=== PATIENT | female | born 1955 | race African-American/Black ===

== ENCOUNTER 2018-09-05 18:42 | Emergency (ER) | payer OTHER ==
[2018-09-05 19:10] VITALS: BP 156/70; PULSE 47; TEMP 98.7; BMI 29.9
--- NOTE | 2018-09-05 20:22 | PDOC ---
History of Present Illness - History of Present Illness Initial Comments: 09/05/18 20:21 63 year old woman with past medical history of HTN and DM who presents with a sharp intermittent pain on the R shoulder radiating to the chest. She describes the pain as like "an ice-pick" and is associated with burning and tingling in the R shoulder. The patient also reports a history of headache that starts at the back of the head that radiates to the bilateral temples and is associated runny nose and tearing. The headache will come and go and symptoms of runny nose and tearing will resolve once the headache remits. The patient states that she has had these headaches in the past and has several headaches like this earlier in the day but is now resolved. The patient denies any recent travel, shortness of breath, chest pain, fevers, nausea, vomiting, diarrhea, constipation or any other complaints at bedside. She denies changes in vision, ringing in the ears, numbness or tingling in the hands or feet. <Magda Hernández - Last Filed: 09/05/18 21:54> <Giovanny Dobbins - Last Filed: 09/06/18 00:07> - General Chief Complaint: Pain Stated Complaint: PAIN Time Seen by Provider: 09/05/18 19:03 Past History - Past Medical History COPD: No Diabetes: Yes HTN: Yes - Surgical History Cardiac Surgery: Yes (stent x 2 2007) - Suicide/Smoking/Psychosocial Hx Smoking History: Former smoker Have you smoked in the past 12 months: No If you are a former smoker, when did you quit?: 15YRS AGO Information on smoking cessation initiated: No Hx Alcohol Use: No Drug/Substance Use Hx: No Substance Use Type: None <Magda Hernández - Last Filed: 09/05/18 21:54> <Giovanny Dobbins - Last Filed: 09/06/18 00:07> - Past Medical History Allergies/Adverse Reactions: Allergies Allergy/AdvReac Type Severity Reaction Status Date / Time No Known Drug Allergies Allergy Verified 09/05/18 18:56 Home Medications: Ambulatory Orders Aspirin [Aspirin EC] 325 mg PO DAILY 09/18/15 Atenolol [Tenormin] 50 mg PO BID 09/18/15 Gabapentin [Neurontin -] 300 mg PO Q8H 10/22/15 Glyburide 5 mg PO BID 09/18/15 Lisinopril [Prinivil -] 40 mg PO DAILY 09/18/15 Metformin HCl [Glucophage] 1,000 mg PO BID 09/18/15 Simvastatin 10 mg PO DAILY 09/18/15 Cephalexin Monohydrate [Keflex -] 500 mg PO Q6H #7 capsule 09/05/18 *Physical Exam - Vital Signs Last Vital Signs Temp Pulse Resp BP Pulse Ox 98.7 F 47 L 18 156/70 96 09/05/18 18:56 09/05/18 18:56 09/05/18 18:56 09/05/18 18:56 09/05/18 18:56 - Physical Exam Comments: 09/05/18 20:38 + R CVA tenderness point tenderness to medial border of R scapula on palpation no spinal tenderness to palpation <Magda Hernández - Last Filed: 09/05/18 21:54> - Vital Signs Last Vital Signs Temp Pulse Resp BP Pulse Ox 98.7 F 47 L 18 156/70 96 09/05/18 18:56 09/05/18 18:56 09/05/18 18:56 09/05/18 18:56 09/05/18 18:56 <Giovanny Dbobins - Last Filed: 09/06/18 00:07> ED Treatment Course - LABORATORY CBC & Chemistry Diagram: 09/05/18 21:06 09/05/18 21:06 <Magda Hernández - Last Filed: 09/05/18 21:54> - LABORATORY CBC & Chemistry Diagram: 09/05/18 21:06 09/05/18 21:06 - ADDITIONAL ORDERS Additional order review: Laboratory Results 09/05/18 09/05/18 09/05/18 21:06 21:06 21:06 Sodium 143 Potassium 3.9 Chloride 108 H Carbon Dioxide 28 Anion Gap 6 L BUN 25 H Creatinine 1.0 Creat Clearance w eGFR 55.64 Random Glucose 87 Calcium 10.2 H Total Bilirubin 0.4 AST 16 ALT 24 Alkaline Phosphatase 84 Troponin I < 0.02 Total Protein 7.4 Albumin 3.9 Urine Color Colorless Urine Appearance Clear Urine pH 6.0 Ur Specific Elizabeth 1.003 L Urine Protein Negative Urine Glucose (UA) Negative Urine Ketones Negative Urine Blood 1+ H Urine Nitrite Negative Urine Bilirubin Negative Urine Urobilinogen Negative Ur Leukocyte Esterase 2+ H Urine WBC (Auto) 21 Urine RBC (Auto) None Ur Epithelial Cells Rare Urine Bacteria Rare 09/05/18 21:06 RBC 4.84 MCV 81.7 MCHC 32.0 RDW 14.7 MPV 9.2 Neutrophils % 38.6 L Lymphocytes % 50.1 H Monocytes % 7.1 Eosinophils % 3.3 Basophils % 0.9 - RADIOLOGY Radiology Studies Ordered: Category Date Time Status CHEST PA & LAT [RAD] Stat Radiology 09/05/18 20:27 Taken - Medications Given in the ED: ED Medications Discontinued Medications Generic Name Dose Route Start Last Admin Trade Name Devonte PRN Reason Stop Dose Admin Acetaminophen 1,000 mg 09/05/18 20:28 09/05/18 21:13 Ofirmev Injection - IVPB 09/05/18 20:29 1,000 mg ONCE ONE Administration Cephalexin HCl 500 mg 09/05/18 21:41 09/05/18 22:00 Keflex - PO 09/05/18 21:42 500 mg ONCE ONE Administration <Giovanny Dobbins - Last Filed: 09/06/18 00:07> Medical Decision Making - Medical Decision Making 09/05/18 21:05 63 year old woman with past medical history of HTN and DM who presents with a sharp intermittent pain on the R shoulder radiating to the chest. She describes the pain as like "an ice-pick" and is associated with burning and tingling in the R shoulder. The patient also reports a history of headache that starts at the back of the head that radiates to the bilateral temples and is associated runny nose and tearing. The headache will come and go and symptoms of runny nose and tearing will resolve once the headache remits. The patient states that she has had these headaches in the past and has several headaches like this earlier in the day but is now resolved. DDX including but not limited to: musculoskeletal vs referred cholesysitic pain vs pleuritic pain vs radiculopathy W/U: - cbc, cmp - cxr - ua, ucx TX: - tylenol ED Course: Patient stable in no acute distress, resting comfortably. 09/05/18 21:54 UA: 21 wbc, 2+ leuk esterase Keflex 500 given 09/05/18 21:55 Patient signed out to Dr. Frazier. <Magda Hernández - Last Filed: 09/05/18 21:54> *DC/Admit/Observation/Transfer - Discharge Dispostion Decision to Admit order: No <Magda Hernández - Last Filed: 09/05/18 21:54> <Giovanny Dobbins - Last Filed: 09/06/18 00:07> Diagnosis at time of Disposition: Shoulder pain - Discharge Dispostion Disposition: HOME Condition at time of disposition: Stable - Prescriptions Prescriptions: Cephalexin Monohydrate [Keflex -] 500 mg PO Q6H #7 capsule - Referrals Referrals: Milady Guevara [Primary Care Provider] - Albert Lagos MD [Staff Physician] - - Patient Instructions Additional Instructions: You were seen in the ED for complaints of R shoulder/upper back pain. In the ED you were evaluated with labwork and imaging. Your results showed a urinary tract infection but no other significant findings. There does not appear to be an immediate need for hospitalization. You are advised to follow up with your primary care physician within 1 week. You were given a referral to orthopedics. Call the number provided to make an appointment within 1 week for further evaluation of your neck and shoulder pain. You were given a prescription for antibiotics to treat your urinary tract infection. Please take medications as directed. Return to the ED immediately if you experience worsening neck and shoulder pain , nausea, vomiting, loss of consciousness, fever, chest pain, shortness of breath or numbness or tingling down the arm. - Post Discharge Activity
[2018-09-05] MEDS ORDERED: ACETAMINOPHEN 1000 MG/100 ML VIAL (NON FORMULARY) IVPB ONE (20:28)
[2018-09-05] MEDS ORDERED: SODIUM CHLORIDE 1,000 ML IV SCH (20:30)
[2018-09-05] MEDS ORDERED: ACETAMINOPHEN INJECTION 100 ML IVPB ONE (20:54)
--- NOTE | 2018-09-05 21:09 | PDOC ---
Attending Attestation - Resident Resident Name: Magda Hernández - ED Attending Attestation I have performed the following: I have examined & evaluated the patient, The case was reviewed & discussed with the resident, I agree w/resident's findings & plan, Exceptions are as noted - HPI HPI: 09/05/18 21:03 The patient is a 63 year old female, with a past medical history of DM and HTN, who presents to the emergency department via EMS with neck and shoulder pain. Pt states that she has had neck pain for approx 1 month. Denies any trauma or falls. Pt states that she presents today because she developed pain in her R upper back. It is worse with palpation, not pleuritic, not exertional. Pt also endorses pain in her R shoulder. Denies CP/SOB. Denies abdominal pain. She denies any recent palpitations or chest pain. She denies recent fevers, chills, lightheadedness or dizziness. She denies recent nausea, vomit, diarrhea or constipation. She denies recent dysuria, frequency, urgency or hematuria. Allergies: NKA Past surgical history: None reported. Social history: Former smoker. Denies EtOH use and recreational drug use. Primary Care Physician: Dr. Guevara - Physicial Exam PE: 09/05/18 21:09 GENERAL: Awake, alert, and fully oriented, in no acute distress. HEAD: No signs of trauma EYES: PERRLA, EOMI, sclera anicteric, conjunctiva clear ENT: Auricles normal inspection, hearing grossly normal, nares patent, oropharynx clear without exudates. Moist mucosa NECK: + Mild R paraspinal TTP, no stepoffs, Normal ROM, supple, no lymphadenopathy, JVD, or masses LUNGS: Breath sounds equal, clear to auscultation bilaterally. No wheezes, and no crackles HEART: Regular rate and rhythm, normal S1 and S2, no murmurs, rubs or gallops ABDOMEN: Soft, nontender, normoactive bowel sounds. No guarding, no rebound. No masses EXTREMITIES: Normal range of motion, no edema. No clubbing or cyanosis. No cords, erythema, or tenderness NEUROLOGICAL: Cranial nerves II through XII intact. 5/5 strength and sensation in all extremities, Normal speech, normal gait, normal cerebellar function SKIN: Warm, Dry, normal turgor, no rashes or lesions noted. BACK: + Mild TTP over R scapula, no deformity - Medical Decision Making 09/05/18 21:11 63 F with R upper back and neck pain. Suspect cervical radiculopathy. Pt with no neuro deficits to suggest spinal cord injury. Pt with no pleuritic nature of pain to suggest lung pathology. Pain is reproducible with palpation, making msk pain more likely. Could also be referred pain, but pt with nontender abdomen. - Labs, trop - EKG - CXR - Pain control 09/06/18 00:06 Labs wnl CXR clear on my read UA notable for UTI. Pt is well appearing, with normal vitals. Clinically stable for DC at this time. I discussed the physical exam findings, ancillary test results and final diagnoses with the patient. I answered all of the patient's questions. The patient was satisfied with the care received and felt comfortable with the discharge plan and treatment plan. The patient agrees to follow up with the primary care physician within 24-72 hours.
[2018-09-05 21:14] LABS: BASO % 0.9 % (0-2.0); EOS % 3.3 % (0-4.5); HEMATOCRIT 39.5 % (32.4-45.2); HEMOGLOBIN 12.7 GM/dL (10.7-15.3); LYMPH % 50.1 % (8-40); MCH 26.1 pg (25.7-33.7); MEAN CELL VOLUME 81.7 fl (80-96); MEAN PLT VOLUME 9.2 fl (7.5-11.1); MONO % 7.1 % (3.8-10.2); NEUT % 38.6 % (42.8-82.8); PLATELET COUNT 185 K/MM3 (134-434); RBC 4.84 M/mm3 (3.60-5.2); RDW 14.7 % (11.6-15.6); WHITE BLOOD COUNT 5.5 K/mm3 (4.0-10.0)
[2018-09-05 21:17] LABS: URINE APPEARANCE CLEAR; URINE BILIRUBIN NEGATIVE (<2.0 mg/dL); URINE COLOR COLORLESS; URINE GLUCOSE (UA) NEGATIVE (NEGATIVE); URINE KETONE NEGATIVE (NEGATIVE); URINE LEUK ESTERASE 2+ (NEGATIVE); URINE NITRITE NEGATIVE (NEGATIVE); URINE PROTEIN NEGATIVE (NEGATIVE); URINE UROBILINOGEN NEGATIVE mg/dL (0.2-1.0)
[2018-09-05 21:28] LABS: EPI CELLS RARE /HPF (FEW); URINE BACTERIA RARE /hpf (NONE SEEN)
[2018-09-05 21:39] LABS: ALBUMIN 3.9 g/dl (3.4-5.0); ALK PHOS 84 U/L (45-117); ANION GAP 6 MMOL/L (8-16); BILIRUBIN,TOTAL 0.4 mg/dL (0.2-1); BLOOD UREA NITROGEN 25 mg/dL (7-18); CALCIUM 10.2 mg/dL (8.5-10.1); CHLORIDE 108 mmol/L (98-107); CO2 28 mmol/L (21-32); GLUCOSE,RANDOM 87 mg/dL (74-106); POTASSIUM 3.9 mmol/L (3.5-5.1); SGOT/AST 16 U/L (15-37); SGPT/ALT 24 U/L (13-61); SODIUM 143 mmol/L (136-145); TOT PROT 7.4 g/dl (6.4-8.2)
[2018-09-05] MEDS ORDERED: CEPHALEXIN MONOHYDRATE 500 MG CAPSULE (UD) PO ONE (21:41)
[2018-09-05] MEDS ORDERED: CEPHALEXIN MONOHYDRATE 500 MG CAPSULE (UD) ONE (21:56)
--- NOTE | 2018-09-06 09:54 | EKG ---
Test Reason : Blood Pressure : / mmHG Vent. Rate : 043 BPM Atrial Rate : 043 BPM P-R Int : 180 ms QRS Dur : 088 ms QT Int : 462 ms P-R-T Axes : 049 035 063 degrees QTc Int : 390 ms MARKED SINUS BRADYCARDIA ABNORMAL ECG WHEN COMPARED WITH ECG OF 23-AUG-2010 12:04, NO SIGNIFICANT CHANGE WAS FOUND Confirmed by PAULO SHAFFER MD ([id number]) on 09/06/2018 9:54:35 AM Referred By: Confirmed By:PAULO SHAFFER MD
== END 2018-09-06 01:03 | disposition home or self-care (01) ==
LOC: JER 18:42
PROC: 3E033NZ Introduction of Analgesics, Hypnotics, Sedatives into Peripheral Vein, Percutaneous Approach (ICD-10-PCS; principal; 2018-09-05)
DX: M25.511 Pain in right shoulder (principal); I25.10 Atherosclerotic heart disease of native coronary artery without angina pectoris; I10 Essential (primary) hypertension; Z95.5 Presence of coronary angioplasty implant and graft; E11.9 Type 2 diabetes mellitus without complications; Z79.84 Long term (current) use of oral hypoglycemic drugs; Z87.891 Personal history of nicotine dependence
CPT/HCPCS: 36415; 71046-TC-FY; 80053; 81003; 81015; 84484; 85025; 93005; 93010; 96374; 99282-25; J0131; J7030

== ENCOUNTER 2019-12-27 11:58 | Emergency (ER) | payer OTHER ==
[2019-12-27 12:12] VITALS: BP 100/61; PULSE 58; TEMP 97.9; BMI 23.3
[2019-12-27] MEDS ORDERED: LIDOCAINE 5% TOPICAL PATCH TP ONE (12:26)
[2019-12-27] MEDS ORDERED: KETOROLAC TROMETHAMINE 15 MG/ML VIAL IM ONE (12:26)
[2019-12-27] MEDS ORDERED: METHOCARBAMOL 750 MG TABLET PO ONE (12:30)
[2019-12-27] MEDS ORDERED: LIDOCAINE 5% TOPICAL PATCH ONE (12:34)
--- NOTE | 2019-12-27 12:34 | PDOC ---
History of Present Illness - General Chief Complaint: Pain Stated Complaint: SEVER LF HIP PAIN Time Seen by Provider: 12/27/19 12:14 History Source: Patient Exam Limitations: No Limitations Past History - Past Medical History Allergies/Adverse Reactions: Allergies Allergy/AdvReac Type Severity Reaction Status Date / Time No Known Drug Allergies Allergy Verified 09/05/18 18:56 Home Medications: Ambulatory Orders Aspirin [Aspirin EC] 325 mg PO DAILY 09/18/15 Atenolol [Tenormin] 25 mg PO BID 09/18/15 Lisinopril [Prinivil -] 20 mg PO DAILY 09/18/15 Metformin HCl [Glucophage] 1,000 mg PO BID 09/18/15 Amlodipine Besylate [Norvasc -] 10 mg PO DAILY 12/27/19 Atorvastatin Calcium [Lipitor] 20 mg PO HS 12/27/19 Diclofenac Sodium [Voltaren] 4 gm TP Q6H #2 gel..gram. 12/27/19 Ergocalciferol (Vitamin D2) [Vitamin D2] 1,000 unit PO DAILY 12/27/19 Hydrochlorothiazide [Hctz -] 25 mg PO DAILY 12/27/19 Methocarbamol [Robaxin -] 1,500 mg PO QID #24 tablet 12/27/19 Oxycodone HCl/Acetaminophen [Percocet 5-325 mg Tablet] 1 tab PO Q6H PRN #12 tab MDD 4 12/27/19 Vitamin B12 100 mg PO DAILY 12/27/19 COPD: No Diabetes: Yes HTN: Yes - Surgical History Cardiac Surgery: Yes (stent x 2 2007) - Psycho Social/Smoking Cessation Hx Smoking History: Never smoked Have you smoked in the past 12 months: No If you are a former smoker, when did you quit?: 15YRS AGO Hx Alcohol Use: No Drug/Substance Use Hx: No Substance Use Type: None *Physical Exam - Vital Signs Last Vital Signs Temp Pulse Resp BP Pulse Ox 97.9 F 58 L 20 100/61 99 12/27/19 12:11 12/27/19 12:11 12/27/19 12:11 12/27/19 12:11 12/27/19 12:11 - Physical Exam General Appearance: Yes: Mild Distress (due to pain). No: Apparent Distress Respiratory/Chest: positive: Lungs Clear, Normal Breath Sounds. negative: Respiratory Distress Cardiovascular: positive: Regular Rhythm, Regular Rate, S1, S2. negative: Murmur Gastrointestinal/Abdominal: positive: Soft. negative: Tender Musculoskeletal: negative: Vertebral Tenderness Extremity: positive: Other (able to move LLE, has more pain when in seated position) Neurologic: positive: Alert, Normal Mood/Affect Medical Decision Making - Medical Decision Making 64 y/o F hx of HTN, DM, herniated disc, sciatica, restless leg syndrome presents with L buttock pain radiating down leg x 4 days, worse today. Last MRI of spine was several years ago. 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 Denies fever, sob, cp, abd pain, n/v, back pain, urinary sxs, numbness/tingling of extremities, bowel/bladder incontinence, saddle/groin paresthesia. Likely sciatica Plan: IM toradol, lido patch, robaxin 12/27/19 12:30 Was still in pain so given Percocet Advised f/u with PCP 12/27/19 13:37 Discharge - Discharge Information Problems reviewed: Yes Clinical Impression/Diagnosis: Sciatica Qualifiers: Laterality: left Qualified Code(s): M54.32 - Sciatica, left side Condition: Stable Disposition: HOME - Admission No - Additional Discharge Information Prescriptions: Diclofenac Sodium [Voltaren] 4 gm TP Q6H #2 gel..gram. Methocarbamol [Robaxin -] 1,500 mg PO QID #24 tablet Oxycodone HCl/Acetaminophen [Percocet 5-325 mg Tablet] 1 tab PO Q6H PRN #12 tab MDD 4 PRN Reason: Severe Pain Prescription Drug Monitoring Program (I-STOP) results: I-STOP not reviewed - Follow up/Referral Referrals: Ema Hein MD [Primary Care Provider] - - Patient Discharge Instructions Patient Printed Discharge Instructions: DI for Sciatica Additional Instructions: Thank you for choosing [facility]. It was a pleasure taking care of you. Alternate between Tylenol 650 mg every 4 and Motrin 600 mg every 6 hours as needed for pain. Be cautious with Motrin as it can affect kidney function. Use Robaxin as well. This medication can make you drowsy. For severe pain, you may take Percocet. This medication can make you constipated for which you may take over the counter Senna tablets as needed. This medication can also make you drowsy so please be cautious with driving or performing heavy physical work. Please be aware that Percocet contains Tylenol. Do not take more than 4000 mg of Tylenol in 1 day. Use Voltaren gel as directed Heating pads may also help Follow-up with your doctor in 2 days Return to the Emergency Department if your symptoms worsen or persist or have chest pain, abdominal pain, vomiting, weakness of extremities, unable to walk, unable to control bowel or bladder movements other concerning symptoms. - Post Discharge Activity
[2019-12-27] MEDS ORDERED: METHOCARBAMOL 500 MG TABLET ONE (12:35)
[2019-12-27] MEDS ORDERED: KETOROLAC TROMETHAMINE 15 MG/ML VIAL ONE (12:35)
== END 2019-12-27 13:50 | disposition home or self-care (01) ==
LOC: JERFT 11:58
PROC: 3E0233Z Introduction of Anti-inflammatory into Muscle, Percutaneous Approach (ICD-10-PCS; principal; 2019-12-27)
DX: I25.10 Atherosclerotic heart disease of native coronary artery without angina pectoris (principal); I10 Essential (primary) hypertension; M54.32 Sciatica, left side; Z95.5 Presence of coronary angioplasty implant and graft; E11.9 Type 2 diabetes mellitus without complications; Z79.84 Long term (current) use of oral hypoglycemic drugs; G25.81 Restless legs syndrome; Z87.891 Personal history of nicotine dependence
CPT/HCPCS: 99282-25

== ENCOUNTER 2020-06-06 20:53 | Inpatient (IN) | payer OTHER ==
[2020-06-06] MEDS ORDERED: ACETAMINOPHEN 1000 MG/100 ML VIAL (NON FORMULARY) IVPB ONE (21:25)
[2020-06-06] MEDS ORDERED: MAG HYDROX/AL HYDROX/SIMETH 30 ML UNIT-DOSE CUP PO ONE (21:25)
[2020-06-06] MEDS ORDERED: SODIUM CHLORIDE 1,000 ML IV STA (21:25)
[2020-06-06] MEDS ORDERED: FAMOTIDINE 20 MG/50 ML IVPB 20 MG/50 ML MG IVPB ONE ×2 (21:25→22:33)
[2020-06-06] MEDS ORDERED: ONDANSETRON 4 MG/2 ML VIAL IVPUSH ONE (21:37)
[2020-06-06] MEDS ORDERED: ACETAMINOPHEN INJECTION 100 ML IVPB ONE (22:32)
--- NOTE | 2020-06-06 22:38 | PDOC ---
History of Present Illness - General Chief Complaint: Pain Stated Complaint: ABD PAIN/ VOMITTING Time Seen by Provider: 06/06/20 21:10 - History of Present Illness Initial Comments: 06/06/20 22:37 HPI: 65 y/o with hx of HTN, DM, herniated disc, sciatica, restless leg syndrome, exlap for SBO presenting with generalized abd pain since yesterday associated with emesis. Pain was sudden and intermittent and felt squeezing. Pain improved and then returned with most pain around umbilicus. No rad to flank or back. Today she noted worse nausea and had 5episodes of emesis. Was not able to tolerate food or liquid. Reports passing gas and stool. No fever, chills, chest pain, SOB, palp, dysuria PMHx: as noted above ROS: as noted SHx: Denies tobacco use; no alcohol use; no rec drugs Allergies: NKDA ROS: GENERAL/CONSTITUTIONAL: No fever or chills. No weakness. HEAD, EYES, EARS, NOSE AND THROAT: No change in vision. No ear pain or discharge. No sore throat. CARDIOVASCULAR: No chest pain or shortness of breath RESPIRATORY: No cough, wheezing, or hemoptysis. GASTROINTESTINAL: +nausea, vomiting; no diarrhea or constipation. GENITOURINARY: No dysuria, frequency, or change in urination. MUSCULOSKELETAL: No joint or muscle swelling or pain. No neck or back pain. SKIN: No rash NEUROLOGIC: No headache, vertigo, loss of consciousness, or change in strength/sensation. ENDOCRINE: No increased thirst. No abnormal weight change HEMATOLOGIC/LYMPHATIC: No anemia, easy bleeding, or history of blood clots. ALLERGIC/IMMUNOLOGIC: No hives or skin allergy. PE: GENERAL: Awake, alert, and fully oriented, no acute distress HEAD: No signs of trauma, normocephalic, atraumatic EYES: EOMI, sclera anicteric, conjunctiva clear ENT: Auricles normal inspection, hearing grossly normal, nares patent, oropharynx clear without exudates. Moist mucosa NECK: Normal ROM, no lymphadenopathy LUNGS: No increased work of breathing, symmetrical chest rise, clear to auscultation bilaterally, no wheezes, crackles or rhonchi HEART: Regular rate, regular rhythm, normal S1 and S2, no murmur, peripheral pulses 2+ and equal bilaterally. ABDOMEN: Soft, nondistended, periumbilical and RLQ ttp with guarding, no rebound. No masses. No CVAT MUSCULOSKELETAL: FROM NEUROLOGICAL: Cranial nerves II through XII grossly intact. Normal speech, stable gait, no focal sensorimotor deficits SKIN: Warm, Dry, normal turgor, no rashes or lesions noted Past History - Medical History Allergies/Adverse Reactions: Allergies Allergy/AdvReac Type Severity Reaction Status Date / Time No Known Drug Allergies Allergy Verified 06/06/20 20:58 Home Medications: Ambulatory Orders Aspirin [Aspirin EC] 325 mg PO DAILY 09/18/15 Atenolol [Tenormin] 25 mg PO BID 09/18/15 Lisinopril [Prinivil -] 20 mg PO DAILY 09/18/15 Metformin HCl [Glucophage] 500 mg PO BID 09/18/15 Amlodipine Besylate [Norvasc -] 10 mg PO DAILY 12/27/19 Atorvastatin Calcium [Lipitor] 40 mg PO HS 12/27/19 Ergocalciferol (Vitamin D2) [Vitamin D2] 1,000 unit PO DAILY 12/27/19 Vitamin B12 100 mg PO DAILY 12/27/19 Glimepiride 1 mg PO DAILY 06/07/20 Naproxen 500 mg PO Q12H PRN 06/07/20 COPD: No Diabetes: Yes HTN: Yes Other medical history: herniated discs - Surgical History Cardiac Surgery: Yes (stent x 2 2007) - Psycho-Social/Smoking History Smoking History: Never smoked Have you smoked in the past 12 months: No If you are a former smoker, when did you quit?: 15YRS AGO - Substance Abuse Hx (Audit-C & DAST Scrn) How often the patient has a drink containing alcohol: Never Score: In Men: 4 or > Positive; In Women: 3 or > Positive: 0 Screen Result (Pos requires Nsg. Audit-10AR): Negative *Physical Exam - Vital Signs Last Vital Signs Temp Pulse Resp BP Pulse Ox 99.9 F H 63 18 184/80 H 97 06/06/20 20:55 06/06/20 20:55 06/06/20 20:55 06/06/20 20:55 06/06/20 20:55 ED Treatment Course - LABORATORY CBC & Chemistry Diagram: 06/06/20 22:23 06/06/20 22:23 - RADIOLOGY Radiology Studies Ordered: Category Date Time Status ABDOMEN & PELVIS CT WITH CONTR [CT] Stat CT Scan 06/06/20 21:25 Ordered - Medications Given in the ED: ED Medications Discontinued Medications Generic Name Dose Route Start Last Admin Trade Name Devonte PRN Reason Stop Dose Admin Al Hydroxide/Mg Hydroxide 30 ml 06/06/20 21:25 06/06/20 22:22 Mylanta Oral Suspension - PO 06/06/20 21:26 Not Given ONCE ONE Medical Decision Making - Medical Decision Making 06/07/20 05:40 65 y/o with hx of HTN, DM, herniated disc, sciatica, restless leg syndrome, exlap for SBO presenting with generalized abd pain since yesterday associated with emesis. T 99.9; PE with generalized abd ttp worse in RLQ. DDx includes gastritis, GE, appy, diverticulitis, sbo. -cbc, cmp, coags, card prof, coags, t&s, ekg, cxr -ct abd pel with contrast -ivf, ofirmev, pepcid, zofran 06/07/20 05:42 POCUS with dilated loops of bowel while attempting to visualzie gallbladder and kidneys greater than 3-4cm concerning for sbo CT with evidence of SBO patient remains stable with minimal complaints; given 4mg morphine and placed NG tube with 250cc suctioned lactate 2.5 trop 1.[address] Vazquez admitted to tele under dr ng 06/07/20 05:44 patient remains stable with minimal complaints of pain. no nausea or emesis. improvement following NG palcement Discharge - Discharge Information Problems reviewed: Yes Clinical Impression/Diagnosis: Small bowel obstruction, NSTEMI (non-ST elevated myocardial infarction), Lactic acidosis Condition: Fair - Admission Yes - Follow up/Referral - Patient Discharge Instructions - Post Discharge Activity
[2020-06-06 22:53] LABS: BASO % 0.5 % (0-2.0); HEMATOCRIT 41.7 % (32.4-45.2); HEMOGLOBIN 13.6 GM/dL (10.7-15.3); LYMPH % 16.2 % (8-40); MCH 26.6 pg (25.7-33.7); MCHC 32.6 g/dl (32.0-36.0); MEAN CELL VOLUME 81.5 fl (80-96); MEAN PLT VOLUME 8.6 fl (7.5-11.1); MONO % 4.3 % (3.8-10.2); PLATELET COUNT 278 K/MM3 (134-434); RBC 5.11 M/mm3 (3.60-5.2); RDW 14.1 % (11.6-15.6); WHITE BLOOD COUNT 9.6 K/mm3 (4.0-10.0)
[2020-06-06 23:06] LABS: INR 1.11 (0.83-1.09); PROTHROMBIN TIME (PATIENT) 13.1 SEC (9.7-13.0)
[2020-06-06 23:09] LABS: ACTIVATED PTT 29.7 SECONDS (25.2-36.5)
[2020-06-06 23:26] LABS: ALBUMIN 4.7 g/dl (3.4-5.0); BILIRUBIN,TOTAL 0.6 mg/dL (0.2-1); BLOOD UREA NITROGEN 16.9 mg/dL (7-18); CALCIUM 10.6 mg/dL (8.5-10.1); MAGNESIUM 1.5 mg/dL (1.8-2.4); POTASSIUM 3.9 mmol/L (3.5-5.1); TOT PROT 8.3 g/dl (6.4-8.2)
[2020-06-06] MEDS ORDERED: MAGNESIUM SULF 50% (8.12 MEQ/2 ML-1 GM VIAL) IVPB ONE (23:33)
--- NOTE | 2020-06-06 23:42 | PDOC ---
Documentation entered by Shanell Roque SCRIBE, acting as scribe for Priya Gil MD. Priya Gil MD: This documentation has been prepared by the scribe, Shanell Roque SCRIBE, under my direction and personally reviewed by me in its entirety. I confirm that the documentation accurately reflects all work, treatment, procedures, and medical decision making performed by me. Attending Attestation - Resident Resident Name: Sultana Ornelas - ED Attending Attestation I have performed the following: I have examined & evaluated the patient, The case was reviewed & discussed with the resident, I agree w/resident's findings & plan, Exceptions are as noted - HPI HPI: 06/06/20 23:22 Patient is a 65 year old female with a significant past medical history of C section, EX-Lap surgery, obstruction, DM and HTN who presents to the ED with vomiting and abdominal pain since yesterday. Patient said she has had symptoms of nausea and vomiting along with not being able to intake PO. Patient stated she has not been passing gas and her ast bowel movement was this morning - small. Allergies: NKDA PCP: Dr. Ema Hein 06/08/20 13:02 - Physicial Exam PE: 06/06/20 23:22 General: Well appearing, awake and alert, NAD. HEENT: NCAT, PERRL, EOMI, clear conjunctiva, anicteric, moist mucus membranes, clear oropharynx, no oral lesions.. Neck: neck supple, FROM Resp: CTAB, normal and even respirations, no respiratory distress CVS: RRR, no murmurs, 2+ peripheral pulses throughout, no peripheral edema Abdomen: +Mid to becky umbilical and lower abdominal tenderness. +Midline vertical laparotomy scar. Soft, NTND, no rebound or guarding. No CVAT. Back: nontender, normal inspection and ROM MSK: no edema, SEGURA x4, ROM intact. No clubbing or cyanosis. normal bulk and tone. Neuro: alert, oriented appropriately; no focal neurologic deficits Psych: Calm and cooperative Skin: warm and well perfused, cap refill <2 sec, normal color 06/08/20 13:02 - Medical Decision Making 06/06/20 23:39 Vital Signs Temp Pulse Resp BP Pulse Ox 99.9 F H 63 18 184/80 H 97 06/06/20 20:55 06/06/20 20:55 06/06/20 20:55 06/06/20 20:55 06/06/20 20:55 DDx abdominal pain: Renal colic, biliary colic, metabolic/electrolyte derangements. GERD, PUD, esophageal spasm, pancreatitis, hepatitis, constipation, colitis, gastroenteritis, cholecystitis, UTI, pyelonephritis, ileus, SBO, medication side effect, hernia, appendicitis, diverticulitis, mesenteric ischemia. msk strain, mesenteric adenitis, psoas abscess. 06/06/20 23:40 Vitals reviewed, low-grade temperature and hypertensive No tachycardia. No chest pain or shortness of breath. ECG is sinus rhythm without ischemic changes, bedside [id number] ultrasound was performed given her abdominal pain, normal gallbladder no stones and no evidence of cholecystitis. Normal kidneys, no hydronephrosis. However there are multiple loops of dilatation, measuring 3 to 4 cm, with to and fro sign, no peristalsis and scant free fluid between the bowel lee. Highly suspicious for SBO given her history of ex lap and obstruction previously. CT abdomen pelvis will be obtained to further elucidate. NG tube, n.p.o., IV fluids. Will need surgical consultation Basic labs reveals lactic acidosis 2.5, normal creatinine electrolytes. Will hydrate and recheck lactic Low magnesium, will replete appropriately with 2 g IV mag Elevated troponin 1.1, no chest pain, ECG is sinus rhythm without ischemic changes. Will need repeat but this is most likely demand ischemia in the s etting of SBO clinically. Will warrant admission for medical and surgical management 06/08/20 13:02 Heart Score/ECG Review #1 ECG reviewed & interpreted by me at: 21:45 General ECG Interpretation: Sinus Rhythm, Normal Rate, Normal Intervals 06/06/20 23:39 EKG normal sinus rhythm 63 bpm, no interval abnormalities, narrow QRS, ST and T wave segments and morphology normal Discharge - Discharge Information Problems reviewed: Yes Clinical Impression/Diagnosis: Small bowel obstruction, NSTEMI (non-ST elevated myocardial infarction), Lactic acidosis Condition: Fair - Admission Yes - Follow up/Referral - Patient Discharge Instructions - Post Discharge Activity
[2020-06-06] MEDS ORDERED: MAGNESIUM SULF 50% (8.12 MEQ/2 ML-1 GM VIAL) ONE (23:44)
[2020-06-07 00:43] LABS: EPI CELLS 7 /uL (0-25.1); HYALINE CASTS 1 /uL (0-3.1); PH,URINE 6.5 (5.0-8.0); URINE APPEARANCE CLEAR; URINE BACTERIA 23 /uL (0-1359); URINE BILIRUBIN NEGATIVE (NEGATIVE); URINE COLOR YELLOW; URINE GLUCOSE (UA) TRACE (NEGATIVE); URINE KETONE NEGATIVE (NEGATIVE); URINE LEUK ESTERASE NEGATIVE (NEGATIVE); URINE NITRITE NEGATIVE (NEGATIVE); URINE PROTEIN 3+ (NEGATIVE); URINE RBC 22 /uL (0-23.9); URINE UROBILINOGEN 0.2 mg/dL (0.2-1.0); URINE WBC 4 /uL (0-25.8)
[2020-06-07] MEDS ORDERED: LACTATED RINGERS SOLUTION 1000 ML INFUS.BAG IV ONE (00:44)
[2020-06-07] MEDS ORDERED: morphine CARPU-JECT 4 MG/1 ML DISP.SYRIN IVPUSH ONE (01:06)
[2020-06-07] MEDS ORDERED: morphine SULFATE 4 MG/ML VIAL ONE (01:22)
--- NOTE | 2020-06-07 01:24 | PDOC ---
*Physical Exam - Vital Signs Last Vital Signs Temp Pulse Resp BP Pulse Ox 99.9 F H 60 20 175/79 H 99 06/06/20 20:55 06/07/20 00:15 06/07/20 00:15 06/07/20 00:15 06/07/20 00:15 ED Treatment Course - LABORATORY CBC & Chemistry Diagram: 06/06/20 22:23 06/06/20 22:23 - ADDITIONAL ORDERS Additional order review: Laboratory Results 06/07/20 06/06/20 06/06/20 00:16 22:23 22:23 PT with INR INR PTT (Actin FS) Sodium Potassium Chloride Carbon Dioxide Anion Gap BUN Creatinine Est GFR (CKD-EPI)AfAm Est GFR (CKD-EPI)NonAf Random Glucose Lactic Acid 2.5 H* Calcium Magnesium Total Bilirubin AST ALT Alkaline Phosphatase Creatine Kinase Creatine Kinase Index CK-MB (CK-2) Troponin I Total Protein Albumin Lipase Urine Color Yellow Urine Appearance Clear Urine pH 6.5 Ur Specific [place] 1.019 Urine Protein 3+ H Urine Glucose (UA) Trace Urine Ketones Negative Urine Blood 1+ H Urine Nitrite Negative Urine Bilirubin Negative Urine Urobilinogen 0.2 Ur Leukocyte Esterase Negative Urine WBC (Auto) 4 Urine RBC (Auto) 22 Urine Casts (Auto) 1 U Epithel Cells (Auto) 7 Urine Bacteria (Auto) 23 Blood Type O POSITIVE Antibody Screen Negative 06/06/20 06/06/20 22:23 22:23 PT with INR 13.10 H INR 1.11 H PTT (Actin FS) 29.7 Sodium 130 L Potassium 3.9 Chloride 89 L Carbon Dioxide 32 Anion Gap 10 BUN 16.9 Creatinine 1.0 Est GFR (CKD-EPI)AfAm 67.51 Est GFR (CKD-EPI)NonAf 58.25 Random Glucose 208 H Lactic Acid Calcium 10.6 H Magnesium 1.5 L Total Bilirubin 0.6 AST 20 ALT 19 Alkaline Phosphatase 48 Creatine Kinase 159 Creatine Kinase Index 3.2 CK-MB (CK-2) 5.1 H Troponin I 1.12 H* Total Protein 8.3 H Albumin 4.7 Lipase 90 Urine Color Urine Appearance Urine pH Ur Specific [place] Urine Protein Urine Glucose (UA) Urine Ketones Urine Blood Urine Nitrite Urine Bilirubin Urine Urobilinogen Ur Leukocyte Esterase Urine WBC (Auto) Urine RBC (Auto) Urine Casts (Auto) U Epithel Cells (Auto) Urine Bacteria (Auto) Blood Type Antibody Screen 06/06/20 22:23 RBC 5.11 MCV 81.5 MCHC 32.6 RDW 14.1 MPV 8.6 Neutrophils % 79.0 D Lymphocytes % 16.2 D Monocytes % 4.3 Eosinophils % 0.0 D Basophils % 0.5 - Medications Given in the ED: ED Medications Discontinued Medications Generic Name Dose Route Start Last Admin Trade Name Devonte PRN Reason Stop Dose Admin Acetaminophen 1,000 mg 06/06/20 21:25 06/06/20 22:43 Ofirmev Injection - IVPB 06/06/20 21:26 1,000 mg ONCE ONE Administration Al Hydroxide/Mg Hydroxide 30 ml 06/06/20 21:25 06/06/20 22:22 Mylanta Oral Suspension - PO 06/06/20 21:26 Not Given ONCE ONE Famotidine/Sodium Chloride 20 mg in 50 mls @ 100 mls/hr 06/06/20 21:25 06/06/20 22:47 Pepcid 20 Mg Premixed Ivpb - IVPB 06/06/20 21:54 100 mls/hr ONCE ONE Administration Sodium Chloride 1,000 mls @ 1,000 mls/hr 06/06/20 21:25 06/06/20 22:43 Normal Saline - IV 06/06/20 22:24 1,000 mls/hr ASDIR STA Administration Lactated Ringer's 1,000 ml 06/07/20 00:44 06/07/20 01:03 Lactated Ringers Solution IV 06/07/20 00:45 1,000 ml ONCE ONE Administration Magnesium Sulfate 2 gm 06/06/20 23:33 06/07/20 00:14 Magnesium Sulfate IVPB 06/06/20 23:34 2 gm ONCE ONE Administration Ondansetron HCl 4 mg 06/06/20 21:37 06/06/20 22:44 Zofran Injection IVPUSH 06/06/20 21:38 4 mg ONCE ONE Administration Medical Decision Making - Medical Decision Making 06/07/20 01:24 Patient Name: LOIS BENJAMIN THIS IS A PRELIMINARY REPORT FROM [facility] DATE OF SERVICE: 2020-06-06 23:40:58 IMAGES: 504 EXAM: CT ABDOMEN AND PELVIS WITH CONTRAST Minimally to moderately dilated small bowel all four quadrants, consistent with SBO. Transition point not identified with certainty, but possibly in RLQ, where there is a small area of apparent mesenteric swirling, cannot exclude closed loop small bowel obstruction. No free air. Appendix not seen. Small ascites. Unremarkable liver, spleen, stomach, pancreas and gallbladder. Cortical scarring left greater than right kidneys. 5.4 cm RUQ ventral hernia containing fat. Enlarged mediastinal and left hilar lymph nodes, indeterminate. 06/07/20 06:04 NGT placed and hooked to suction. She will be admitted to med surg under hospitalists, and she will beevaluated by general surgery in the AM. Discharge - Discharge Information Problems reviewed: Yes Clinical Impression/Diagnosis: Small bowel obstruction, NSTEMI (non-ST elevated myocardial infarction), Lactic acidosis Condition: Fair - Follow up/Referral - Patient Discharge Instructions - Post Discharge Activity
[2020-06-07] MEDS ORDERED: CLOPIDOGREL BISULFATE 75 MG TABLET (FP) NGT ONE (05:14)
[2020-06-07] MEDS ORDERED: CLOPIDOGREL BISULFATE 75 MG TABLET (FP) PO ONE (05:14)
--- NOTE | 2020-06-07 05:19 | PN ---
Teaching Attending Note Name of Resident: Rudy Antonio ATTENDING PHYSICIAN STATEMENT I saw and evaluated the patient. I reviewed the resident's note and discussed the case with the resident. I agree with the resident's findings and plan as documented. SUBJECTIVE: This is a 65 year old woman with a history of HTN, type 2 DM, RLS, sciatica, exploratory laparotomy for SBO who comes to the ED complaining of abdominal pain, nausea and vomiting. Pain started suddenly 2 days ago. She describes it as intermittent and diffuse. Yesterday, she developed vomiting. She had a small bowel movement yesterday morning. OBJECTIVE: Vital Signs Period Temp Pulse Resp BP Sys/Duff Pulse Ox Last 24 Hr 99.9 F 59-63 18-20 136-184/75-80 96-99 HEART: S1S2, RRR LUNGS: Clear ABDOMEN: Distended, soft, non-tender, hyperactive BS EXTREMITIES: No edema Laboratory Tests 06/06/20 06/06/20 06/06/20 22:23 22:23 22:23 WBC 9.6 RBC 5.11 Hgb 13.6 Hct 41.7 MCV 81.5 MCH 26.6 MCHC 32.6 RDW 14.1 Plt Count 278 D MPV 8.6 Absolute Neuts (auto) 7.6 Neutrophils % 79.0 D Lymphocytes % 16.2 D Monocytes % 4.3 Eosinophils % 0.0 D Basophils % 0.5 Nucleated RBC % 0 PT with INR 13.10 H INR 1.11 H PTT (Actin FS) 29.7 Sodium 130 L Potassium 3.9 Chloride 89 L Carbon Dioxide 32 Anion Gap 10 BUN 16.9 Creatinine 1.0 Est GFR (CKD-EPI)AfAm 67.51 Est GFR (CKD-EPI)NonAf 58.25 Random Glucose 208 H Lactic Acid Calcium 10.6 H Magnesium 1.5 L Total Bilirubin 0.6 AST 20 ALT 19 Alkaline Phosphatase 48 Creatine Kinase 159 Creatine Kinase Index 3.2 CK-MB (CK-2) 5.1 H Troponin I 1.12 H* Total Protein 8.3 H Albumin 4.7 Lipase 90 Urine Color Urine Appearance Urine pH Ur Specific [place] Urine Protein Urine Glucose (UA) Urine Ketones Urine Blood Urine Nitrite Urine Bilirubin Urine Urobilinogen Ur Leukocyte Esterase Urine WBC (Auto) Urine RBC (Auto) Urine Casts (Auto) U Epithel Cells (Auto) Urine Bacteria (Auto) Blood Type Antibody Screen 06/06/20 06/06/20 06/07/20 22:23 22:23 00:16 WBC RBC Hgb Hct MCV MCH MCHC RDW Plt Count MPV Absolute Neuts (auto) Neutrophils % Lymphocytes % Monocytes % Eosinophils % Basophils % Nucleated RBC % PT with INR INR PTT (Actin FS) Sodium Potassium Chloride Carbon Dioxide Anion Gap BUN Creatinine Est GFR (CKD-EPI)AfAm Est GFR (CKD-EPI)NonAf Random Glucose Lactic Acid 2.5 H* Calcium Magnesium Total Bilirubin AST ALT Alkaline Phosphatase Creatine Kinase Creatine Kinase Index CK-MB (CK-2) Troponin I Total Protein Albumin Lipase Urine Color Yellow Urine Appearance Clear Urine pH 6.5 Ur Specific [place] 1.019 Urine Protein 3+ H Urine Glucose (UA) Trace Urine Ketones Negative Urine Blood 1+ H Urine Nitrite Negative Urine Bilirubin Negative Urine Urobilinogen 0.2 Ur Leukocyte Esterase Negative Urine WBC (Auto) 4 Urine RBC (Auto) 22 Urine Casts (Auto) 1 U Epithel Cells (Auto) 7 Urine Bacteria (Auto) 23 Blood Type O POSITIVE Antibody Screen Negative 06/07/20 06/07/20 02:23 02:23 WBC RBC Hgb Hct MCV MCH MCHC RDW Plt Count MPV Absolute Neuts (auto) Neutrophils % Lymphocytes % Monocytes % Eosinophils % Basophils % Nucleated RBC % PT with INR INR PTT (Actin FS) Sodium Potassium Chloride Carbon Dioxide Anion Gap BUN Creatinine Est GFR (CKD-EPI)AfAm Est GFR (CKD-EPI)NonAf Random Glucose Lactic Acid 2.7 H* Calcium Magnesium Total Bilirubin AST ALT Alkaline Phosphatase Creatine Kinase Creatine Kinase Index CK-MB (CK-2) Troponin I 1.84 H* Total Protein Albumin Lipase Urine Color Urine Appearance Urine pH Ur Specific [place] Urine Protein Urine Glucose (UA) Urine Ketones Urine Blood Urine Nitrite Urine Bilirubin Urine Urobilinogen Ur Leukocyte Esterase Urine WBC (Auto) Urine RBC (Auto) Urine Casts (Auto) U Epithel Cells (Auto) Urine Bacteria (Auto) Blood Type Antibody Screen Home Medications Medication Instructions Recorded Aspirin [Aspirin EC] 325 mg PO DAILY 09/18/15 Atenolol [Tenormin] 25 mg PO BID 09/18/15 Lisinopril [Prinivil -] 20 mg PO DAILY 09/18/15 Metformin HCl [Glucophage] 500 mg PO BID 09/18/15 Amlodipine Besylate [Norvasc -] 10 mg PO DAILY 12/27/19 Atorvastatin Calcium [Lipitor] 40 mg PO HS 12/27/19 Ergocalciferol (Vitamin D2) 1,000 unit PO DAILY 12/27/19 [Vitamin D2] Vitamin B12 100 mg PO DAILY 12/27/19 ASSESSMENT AND PLAN: This is a 65 year old woman with a history of HTN, type 2 DM, RLS, sciatica, exploratory laparotomy for SBO who presented to the ED with abdominal pain, nausea and vomiting. 1. SBO - NG tube inserted in ED with improvement of symptoms - Conservative management with NGT, NPO, IV fluid - Surgery consult 2. Demand ischemia vs NSTEMI - Monitor on telemetry - Serial troponins, EKGs - Echocardiogram - Continue aspirin, atenolol, Lipitor - Start Plavix - Cardiology consult 3. Lactic acidosis - Cause not clear - No evidence of sepsis - IV fluid - Monitor lactic acid 4. Hyponatremia - IV fluid - Monitor electrolytes 5. Hypomagnesemia - Supplement magnesium 6. 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
[2020-06-07] MEDS ORDERED: MAGNESIUM SULF 50% (8.12 MEQ/2 ML-1 GM VIAL) IVPB ONE (05:22)
[2020-06-07] MEDS: SODIUM CHLORIDE 1,000 ML IV SCH ×2 (06:11→16:33)
[2020-06-07] MEDS: INSULIN SLIDING SCALE (NOVOLOG) 1 VIAL SQ SCH ×4 (06:46→22:40)
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
[2020-06-07 07:35] LABS: HEMATOCRIT 38.3 % (32.4-45.2); HEMOGLOBIN 12.3 GM/dL (10.7-15.3); MCH 26.4 pg (25.7-33.7); MCHC 32.2 g/dl (32.0-36.0); MEAN CELL VOLUME 81.8 fl (80-96); MEAN PLT VOLUME 8.4 fl (7.5-11.1); PLATELET COUNT 255 K/MM3 (134-434); RBC 4.68 M/mm3 (3.60-5.2); RDW 13.9 % (11.6-15.6); WHITE BLOOD COUNT 7.7 K/mm3 (4.0-10.0)
[2020-06-07 07:48] LABS: ALBUMIN 3.9 g/dl (3.4-5.0); BILIRUBIN,TOTAL 0.5 mg/dL (0.2-1); BLOOD UREA NITROGEN 15.5 mg/dL (7-18); CALCIUM 9.5 mg/dL (8.5-10.1); MAGNESIUM 2.1 mg/dL (1.8-2.4); PHOSPHOROUS 3.5 mg/dL (2.5-4.9); POTASSIUM 3.9 mmol/L (3.5-5.1); TOT PROT 6.9 g/dl (6.4-8.2)
[2020-06-07 08:05] VITALS: BMI 26.9
[2020-06-07] MEDS: ASPIRIN COATED 81 MG TABLET.EC PO SCH (09:54)
[2020-06-07] MEDS: CHOLECALCIFEROL (VIT D3) 1,000 UNIT (25 MCG) TABLET PO SCH (09:54)
[2020-06-07] MEDS: amLODIPine BESYLATE 10 MG TABLET (FP) PO SCH (09:54)
[2020-06-07] MEDS: LISINOPRIL 20 MG TABLET (FP) PO SCH (09:54)
[2020-06-07] MEDS: ATENOLOL 25 MG TABLET (FP) PO SCH ×2 (09:54→22:40)
[2020-06-07] MEDS ORDERED: ASPIRIN COATED 81 MG TABLET.EC NR SCH (10:00)
[2020-06-07] MEDS ORDERED: ASPIRIN COATED 81 MG TABLET.EC PO SCH (10:00)
[2020-06-07] MEDS ORDERED: PT OWN MED DRAWER 7, Y5N ONE ×2 (10:08→11:06)
[2020-06-07] MEDS: CYANOCOBALAMIN (VITAMIN B-12) 100 MCG TABLET PO SCH (10:09)
[2020-06-07] MEDS ORDERED: HEPARIN NA (PORCINE) 5,000 UNITS/ML 1ML VIAL IVPUSH ONE (10:23)
[2020-06-07] MEDS ORDERED: HEPARIN NA (PORCINE) 5,000 UNITS/ML 1ML VIAL IVPUSH PRN ×2 (10:24)
[2020-06-07] MEDS ORDERED: CLOPIDOGREL BISULFATE 300 MG TABLET PO STA (10:27)
--- NOTE | 2020-06-07 10:28 | CONSULT ---
- Consultation REQUESTING PROVIDER: ED MD CONSULT REQUEST: We have been asked to surgically evaluate this patient for a sm all bowel obstruction. PCP:Piyush Roche MD HISTORY OF PRESENT ILLNESS:65 y/o A/A female presented w/ nausea/vomiting and abdominal pain; she also stated she was not passing flatus. Pain was crampy in nature and generalized. She came to the Ed for evaluation. She has had 2 sbo's in the past; one managed operatively and one conservatively. PMHx: NIDDM/HTN/CAD/HLD PSHx: ROMAIN/ex-lap for SBO. Home Medications Medication Instructions Recorded Aspirin [Aspirin EC] 325 mg PO DAILY 09/18/15 Atenolol [Tenormin] 25 mg PO BID 09/18/15 Lisinopril [Prinivil -] 20 mg PO DAILY 09/18/15 Metformin HCl [Glucophage] 500 mg PO BID 09/18/15 Amlodipine Besylate [Norvasc -] 10 mg PO DAILY 12/27/19 Atorvastatin Calcium [Lipitor] 40 mg PO HS 12/27/19 Ergocalciferol (Vitamin D2) 1,000 unit PO DAILY 12/27/19 [Vitamin D2] Vitamin B12 100 mg PO DAILY 12/27/19 Glimepiride 1 mg PO DAILY 06/07/20 Naproxen 500 mg PO Q12H PRN 06/07/20 Allergies Allergy/AdvReac Type Severity Reaction Status Date / Time No Known Drug Allergies Allergy Verified 06/06/20 20:58 REVIEW OF SYSTEMS: CONSTITUTIONAL: Absent: fever, chills, diaphoresis, generalized weakness, malaise, loss of appetite, weight change CARDIOVASCULAR: Present: chest pain, syncope, palpitations, irregular heart rate, lightheadedness, Absent: peripheral edema RESPIRATORY: Absent: cough, shortness of breath, dyspnea with exertion, wheezing, stridor, hemoptysis GASTROINTESTINAL: Present: abdominal pain, abdominal distension, nausea, vomiting, Absent: diarrhea, constipation, melena, hematochezia GENITOURINARY: Absent: dysuria, frequency, urgency, hesitancy, hematuria, flank pain, genital pain MUSCULOSKELETAL: Absent: myalgia, arthralgia, joint swelling, back pain, neck pain SKIN: Absent: rash, itching, pallor HEMATOLOGIC/IMMUNOLOGIC: Absent: easy bleeding, easy bruising, lymphadenopathy NEUROLOGIC: Absent: headache, focal weakness, paresthesias, dizziness, unsteady gait, seizure, mental status changes, bladder or bowel incontinence PSYCHIATRIC: Absent: anxiety, depression, suicidal or homicidal ideation, hallucinations. PHYSICAL EXAM: GENERAL: Awake, alert, and fully oriented, in no acute distress. HEAD: Normal with no signs of trauma. EYES: PERRL, sclera anicteric, conjunctiva clear. NECK: Normal ROM, supple without lymphadenopathy, JVD, or masses. ABDOMEN: Soft, nontender, minimally distended and minimally tympanitic, no guarding, no rebound, no masses. No organomegaly. Incisional hernialikely chronicall incarcerated. MUSCULOSKELETAL: Normal ROM at all joints. No bony deformities or tenderness. No CVA tenderness. UPPER EXTREMITIES: 2+ pulses, warm, well-perfused. No cyanosis. Cap refill <2 seconds. No peripheral edema. LOWER EXTREMITIES: 2+ pulses, warm, well-perfused. No calf tenderness. No peripheral edema. NEUROLOGICAL: Normal speech, gait not observed. PSYCH: Cooperative. Good eye contact. Appropriate mood and affect. SKIN: Warm, dry, normal turgor, no rashes or lesions noted. Vital Signs Temperature 98 F 06/07/20 08:45 Pulse Rate 64 06/07/20 08:45 Respiratory Rate 18 06/07/20 08:45 Blood Pressure 149/71 06/07/20 08:45 O2 Sat by Pulse Oximetry (%) 95 06/07/20 05:45 Lab Results WBC 7.7 K/mm3 (4.0-10.0) 06/07/20 05:35 RBC 4.68 M/mm3 (3.60-5.2) 06/07/20 05:35 Hgb 12.3 GM/dL (10.7-15.3) 06/07/20 05:35 Hct 38.3 % (32.4-45.2) 06/07/20 05:35 MCV 81.8 fl (80-96) 06/07/20 05:35 MCHC 32.2 g/dl (32.0-36.0) 06/07/20 05:35 RDW 13.9 % (11.6-15.6) 06/07/20 05:35 Plt Count 255 K/MM3 (134-434) 06/07/20 05:35 INR 1.11 (0.83-1.09) H 06/06/20 22:23 Sodium 132 mmol/L (136-145) L 06/07/20 05:35 Potassium 3.9 mmol/L (3.5-5.1) 06/07/20 05:35 Chloride 94 mmol/L (98-107) L 06/07/20 05:35 Carbon Dioxide 30 mmol/L (21-32) 06/07/20 05:35 Anion Gap 8 MMOL/L (8-16) 06/07/20 05:35 BUN 15.5 mg/dL (7-18) 06/07/20 05:35 Creatinine 1.0 mg/dL (0.55-1.3) 06/07/20 05:35 Random Glucose 165 mg/dL (74-106) H 06/07/20 05:35 Calcium 9.5 mg/dL (8.5-10.1) 06/07/20 05:35 Blood Type O POSITIVE 06/06/20 22:23 Antibody Screen Negative 06/06/20 22:23 CT scan a/p reviewed IMP: recurrent SBO PLAN: NPO/IVF/NGT/serial exams and abdominal xrays; possible laparotomy if no response to conservative tx. Giovanny Vazquez MD FACS
[2020-06-07] MEDS ORDERED: HEPARIN SOD,PORK IN 0.45% NACL 25,000 UNITS/500 ML INFUS.BAG IVPB SCH (10:30)
--- NOTE | 2020-06-07 10:54 | PN ---
Progress Note (short form) - Note Progress Note: 65 year old female patient with past medical history that includes HTN, DM, herniated disc, sciatica, rerstless leg syndrome, herniated disk, exploratory laparatomy, Hx of SBO, who prersented to the ED with nausea, vomiting, and abdominal pain. The patient's symptoms began 3 days ago on and have been getting gradually worse. She had her last bowel movement yesterday, but has not been eating due to her symptoms. The patient has had a previous SBO that resolved with use of a NG tube. Another SBO in the was resolved using exploratory laparatomy. The patient also has an extensive cardiac history that began when she once was running for the bus and felt a large pressure on her chest as if someone was choking her. She went to the doctor and had a nuclear stress test done with subsequent insertion of 2 stents in her heart. The patient denies fever/chills, night sweats, headache, vision changes, chest pain, shortness of breath, pallpitations, cough, leg swelling, abdominal pain, nausea, vomiting, diarrhea, constipation, dysuria. ECG:NSR, q in lat leads Recent Travel: PAST MEDICAL HISTORY: HTN, DM, herniated disc, sciatica, rerstless leg syndrome, herniated disk, Hx of SBO PAST SURGICAL HISTORY: exploratory laparatomy cardiac cath with 2 stents placed Social History: Smoking: denies Alcohol:denies Drugs: denies Allergies No Known Drug Allergies Allergy (Verified 06/06/20 20:58) HOME MEDICATIONS: Home Medications Medication Instructions Recorded Aspirin [Aspirin EC] 325 mg PO DAILY 09/18/15 Atenolol [Tenormin] 25 mg PO BID 09/18/15 Lisinopril [Prinivil -] 20 mg PO DAILY 09/18/15 Metformin HCl [Glucophage] 500 mg PO BID 09/18/15 Amlodipine Besylate [Norvasc -] 10 mg PO DAILY 12/27/19 Atorvastatin Calcium [Lipitor] 40 mg PO HS 12/27/19 Ergocalciferol (Vitamin D2) 1,000 unit PO DAILY 12/27/19 [Vitamin D2] Vitamin B12 100 mg PO DAILY 12/27/19 Glimepiride 1 mg PO DAILY 06/07/20 Naproxen 500 mg PO Q12H PRN 06/07/20 REVIEW OF SYSTEMS CONSTITUTIONAL: Absent: fever, chills, diaphoresis HEENT: Absent: visual changes CARDIOVASCULAR: Absent: chest pain, palpitations, lightheadedness RESPIRATORY: Absent: cough, shortness of breath GASTROINTESTINAL: Absent: abdominal pain, nausea, vomiting, diarrhea, constipation GENITOURINARY: Absent: dysuria NEUROLOGIC: Absent: headache, dizziness PHYSICAL EXAMINATION Vital Signs - 24 hr 06/06/20 06/07/20 06/07/20 20:55 00:15 02:33 Temperature 99.9 F H Pulse Rate 63 Pulse Rate [ 60 59 L Apical] Respiratory 18 20 18 Rate Blood Pressure 184/80 H Blood Pressure 175/79 H 136/75 [Left Arm] O2 Sat by Pulse 97 99 96 Oximetry (%) 06/07/20 06/07/20 03:20 05:45 Temperature 98.3 F Pulse Rate 52 L Pulse Rate [ Apical] Respiratory 16 Rate Blood Pressure 138/67 Blood Pressure [Left Arm] O2 Sat by Pulse 95 Oximetry (%) GENERAL: Awake, alert, and fully oriented, in no acute distress. HEAD: Normal with no signs of trauma. EYES: Extraocular movements intact EARS, NOSE, THROAT: Ears normal, nares patent, oropharynx clear without e xudates. Moist mucous membranes. NECK: Normal range of motion, supple without lymphadenopathy, JVD, or masses. LUNGS: Breath sounds equal, clear to auscultation bilaterally. No wheezes, and no crackles. No accessory muscle use. HEART: grade 2 systolic murmur at right sternal border. Regular rate and rhythm, normal S1 and S2 without murmur, rub or gallop. ABDOMEN: Soft, nontender, not distended, hyperactive bowel sounds, no guarding, no rebound, no masses. MUSCULOSKELETAL: Normal range of motion at all joints. No bony deformities or tenderness. UPPER EXTREMITIES: 2+ pulses, warm, well-perfused. No cyanosis. No clubbing. No peripheral edema. LOWER EXTREMITIES: 2+ pulses, warm, well-perfused. No calf tenderness. No peripheral edema. NEUROLOGICAL: Normal speech. Normal gait. PSYCHIATRIC: Cooperative. Good eye contact. Appropriate mood and affect. SKIN: Warm, dry, normal turgor, no rashes or lesions noted, normal capillary refill. CBC, BMP 06/07/20 05:35 06/07/20 05:35 Troponin, BNP 06/06/20 06/07/20 06/07/20 22:23 02:23 05:35 Troponin I 1.12 H* 1.84 H* 1.65 H* Active Medications Acetaminophen (Tylenol -) 650 mg PO Q4H PRN PRN Reason: PAIN LEVEL 4 - 6 Amlodipine Besylate (Norvasc -) 10 mg PO DAILY [facility] Last Admin: 06/07/20 09:54 Dose: 10 mg Documented by: Aspirin (Ecotrin -) 81 mg PO DAILY [facility] Last Admin: 06/07/20 09:54 Dose: 81 mg Documented by: Atenolol (Tenormin -) 25 mg PO BID [facility] Last Admin: 06/07/20 09:54 Dose: 25 mg Documented by: Atorvastatin Calcium (Lipitor -) 40 mg PO [facility] Cholecalciferol (Vitamin D3 -) 1,000 unit PO DAILY [facility] Last Admin: 06/07/20 09:54 Dose: 1,000 unit Documented by: Cyanocobalamin (Vitamin B12 -) 100 mcg PO DAILY [facility] Last Admin: 06/07/20 10:09 Dose: 100 mcg Documented by: Heparin Sodium (Porcine) (Heparin -) 1,000 unit IVPUSH PRN PRN PRN Reason: Heparin Heparin Sodium (Porcine) (Heparin -) 5,000 unit IVPUSH PRN PRN PRN Reason: Heparin Sodium Chloride (Normal Saline -) 1,000 mls @ 125 mls/hr IV ASDIR [facility] Last Admin: 06/07/20 06:11 Dose: 125 mls/hr Documented by: HEPARIN SOD,PORK IN 0.45% NACL (Heparin-1/2ns 25,000 Units/500) 25,000 units in 500 mls @ 20 mls/hr IVPB TITR [facility]; Protocol Insulin Aspart (Novolog Vial Sliding Scale -) 1 vial SQ ACHS [facility]; Protocol Last Admin: 06/07/20 06:46 Dose: Not Given Documented by: Lisinopril (Prinivil) 20 mg PO DAILY [facility] Last Admin: 06/07/20 09:54 Dose: 20 mg Documented by: ASSESSMENT/PLAN: 65 year old female patient with past medical history that includes HTN, DM, herniated disc, sciatica, rerstless leg syndrome, herniated disk, exploratory laparatomy, Hx of SBO, who prersented to the ED with nausea, vomiting, and abdominal pain. 1. SBO - SBO found on CT A/P - NG tube - IV fluids - Tylenol prn - NPO 2. Tropenemia 2/2 demand cardiac ischemia r/o acs - Troponins positive, but patient reports no chest pain and ecg negative - Patient may have cardiac ischemia 2/2 fluid loss from vomiting and not staying well hydrated enough due to the SBO - f/u ecg - consult cardio 3. HTN - Amlodipine, Atenolol 4. DM - ISS 5. FEN - IV fluids, NPO, monitor lytes
--- NOTE | 2020-06-07 11:10 | CON.CARD ---
Cardiology Consult (text) - Consultation Consultation Note: cc: abd pain, vomiting hpi: 65 f hx htn, dm, cad s/p pci 2007 (after +stress test, no HI), exlap for prior sbo, here with abd pain, vomiting. Sxs for past few days. No cp sob palps dizzy loc pnd orthopnea le edema. Sees cardio at [facility]. pmh: per hpi psh: per hpi social: no tob fam: no premature cad, scd ros: per hpi; all others nl meds: Home Medications Medication Instructions Recorded Aspirin [Aspirin EC] 325 mg PO DAILY 09/18/15 Atenolol [Tenormin] 25 mg PO BID 09/18/15 Lisinopril [Prinivil -] 20 mg PO DAILY 09/18/15 Metformin HCl [Glucophage] 500 mg PO BID 09/18/15 Amlodipine Besylate [Norvasc -] 10 mg PO DAILY 12/27/19 Atorvastatin Calcium [Lipitor] 40 mg PO HS 12/27/19 Ergocalciferol (Vitamin D2) 1,000 unit PO DAILY 12/27/19 [Vitamin D2] Vitamin B12 100 mg PO DAILY 12/27/19 Glimepiride 1 mg PO DAILY 06/07/20 Naproxen 500 mg PO Q12H PRN 06/07/20 Current Medications Generic Name Dose Route Start Last Admin Trade Name Freq PRN Reason Stop Dose Admin Acetaminophen 650 mg 06/07/20 05:14 Tylenol - PO Q4H PRN PAIN LEVEL 4 - 6 Amlodipine Besylate 10 mg 06/07/20 10:00 06/07/20 09:54 Norvasc - PO 10 mg DAILY [facility] Administration Aspirin 81 mg 06/07/20 10:00 06/07/20 09:54 Ecotrin - PO 81 mg DAILY [facility] Administration Atenolol 25 mg 06/07/20 10:00 06/07/20 09:54 Tenormin - PO 25 mg BID [facility] Administration Atorvastatin Calcium 40 mg 06/07/20 22:00 Lipitor - PO HS [facility] Cholecalciferol 1,000 unit 06/07/20 10:00 06/07/20 09:54 Vitamin D3 - PO 1,000 unit DAILY [facility] Administration Cyanocobalamin 100 mcg 06/07/20 10:00 06/07/20 10:09 Vitamin B12 - PO 100 mcg DAILY [facility] Administration Heparin Sodium (Porcine) 1,000 unit 06/07/20 10:24 Heparin - IVPUSH PRN PRN Heparin Heparin Sodium (Porcine) 5,000 unit 06/07/20 10:24 Heparin - IVPUSH PRN PRN Heparin Sodium Chloride 1,000 mls @ 125 mls/hr 06/07/20 05:15 06/07/20 06:11 Normal Saline - IV 125 mls/hr ASDIR [facility] Administration HEPARIN SOD,PORK IN 0.45% NACL 25,000 units in 500 mls @ 20 mls/hr 06/07/20 10:30 Heparin-1/2ns 25,000 Units/500 IVPB TITR [facility] Protocol 1,000 UNITS/HR Insulin Aspart 1 vial 06/07/20 07:00 06/07/20 06:46 Novolog Vial Sliding Scale - SQ Not Given ACHS [facility] Protocol Lisinopril 20 mg 06/07/20 10:00 06/07/20 09:54 Prinivil PO 20 mg DAILY [facility] Administration pe: Vital Signs Period Temp Pulse Resp BP Sys/Duff Pulse Ox Last 24 Hr 98 F-99.9 F 52-64 16-20 136-184/67-80 95-99 nad no jvd rrr s1s2 no mrg cta bl nl eff aao3 no le e/c/c abd nd +mild diffuse tender pos dp pt no carotid bruits no jaundice diaphoresis Laboratory Last Values WBC 7.7 K/mm3 (4.0-10.0) 06/07/20 05:35 RBC 4.68 M/mm3 (3.60-5.2) 06/07/20 05:35 Hgb 12.3 GM/dL (10.7-15.3) 06/07/20 05:35 Hct 38.3 % (32.4-45.2) 06/07/20 05:35 MCV 81.8 fl (80-96) 06/07/20 05:35 MCH 26.4 pg (25.7-33.7) 06/07/20 05:35 MCHC 32.2 g/dl (32.0-36.0) 06/07/20 05:35 RDW 13.9 % (11.6-15.6) 06/07/20 05:35 Plt Count 255 K/MM3 (134-434) 06/07/20 05:35 MPV 8.4 fl (7.5-11.1) 06/07/20 05:35 Absolute Neuts (auto) 7.6 K/mm3 (1.5-8.0) 06/06/20 22:23 Neutrophils % 79.0 % (42.8-82.8) D 06/06/20 22:23 Lymphocytes % 16.2 % (8-40) D 06/06/20 22:23 Monocytes % 4.3 % (3.8-10.2) 06/06/20 22:23 Eosinophils % 0.0 % (0-4.5) D 06/06/20 22:23 Basophils % 0.5 % (0-2.0) 06/06/20 22: Nucleated RBC % 0 % (0-0) 06/06/20 22:23 PT with INR 13.10 SEC (9.7-13.0) H 06/06/20 22:23 INR 1.11 (0.83-1.09) H 06/06/20 22:23 PTT (Actin FS) 29.7 SECONDS (25.2-36.5) 06/06/20 22:23 Sodium 132 mmol/L (136-145) L 06/07/20 05:35 Potassium 3.9 mmol/L (3.5-5.1) 06/07/20 05:35 Chloride 94 mmol/L (98-107) L 06/07/20 05:35 Carbon Dioxide 30 mmol/L (21-32) 06/07/20 05:35 Anion Gap 8 MMOL/L (8-16) 06/07/20 05:35 BUN 15.5 mg/dL (7-18) 06/07/20 05:35 Creatinine 1.0 mg/dL (0.55-1.3) 06/07/20 05:35 Est GFR (CKD-EPI)AfAm 67.51 06/07/20 05:35 Est GFR (CKD-EPI)NonAf 58.25 06/07/20 05:35 Random Glucose 165 mg/dL (74-106) H 06/07/20 05:35 Lactic Acid 2.6 mmol/L (0.4-2.0) H* 06/07/20 05:35 Calcium 9.5 mg/dL (8.5-10.1) 06/07/20 05:35 Phosphorus 3.5 mg/dL (2.5-4.9) 06/07/20 05:35 Magnesium 2.1 mg/dL (1.8-2.4) 06/07/20 05:35 Total Bilirubin 0.5 mg/dL (0.2-1) 06/07/20 05:35 AST 19 U/L (15-37) 06/07/20 05:35 ALT 15 U/L (13-61) 06/07/20 05:35 Alkaline Phosphatase 41 U/L (45-117) L 06/07/20 05:35 Creatine Kinase 159 U/L (26-192) 06/06/20 22:23 Creatine Kinase Index 3.2 % (0.0-5.0) 06/06/20 22:23 CK-MB (CK-2) 5.1 ng/mL (0.5-3.6) H 06/06/20 22:23 Troponin I 1.65 ng/ml (0.00-0.05) H* 06/07/20 05:35 Total Protein 6.9 g/dl (6.4-8.2) 06/07/20 05:35 Albumin 3.9 g/dl (3.4-5.0) 06/07/20 05:35 Lipase 90 U/L (73-393) 06/06/20 22:23 Urine Color Yellow 06/07/20 00:16 Urine Appearance Clear 06/07/20 00:16 Urine pH 6.5 (5.0-8.0) 06/07/20 00:16 Ur Specific [place] 1.019 (1.010-1.035) 06/07/20 00:16 Urine Protein 3+ (NEGATIVE) H 06/07/20 00:16 Urine Glucose (UA) Trace (NEGATIVE) 06/07/20 00:16 Urine Ketones Negative (NEGATIVE) 06/07/20 00:16 Urine Blood 1+ (NEGATIVE) H 06/07/20 00:16 Urine Nitrite Negative (NEGATIVE) 06/07/20 00:16 Urine Bilirubin Negative (NEGATIVE) 06/07/20 00:16 Urine Urobilinogen 0.2 mg/dL (0.2-1.0) 06/07/20 00:16 Ur Leukocyte Esterase Negative (NEGATIVE) 06/07/20 00:16 Urine WBC (Auto) 4 /uL (0-25.8) 06/07/20 00:16 Urine RBC (Auto) 22 /uL (0-23.9) 06/07/20 00:16 Urine Casts (Auto) 1 /uL (0-3.1) 06/07/20 00:16 U Epithel Cells (Auto) 7 /uL (0-25.1) 06/07/20 00:16 Urine Bacteria (Auto) 23 /uL (0-1359) 06/07/20 00:16 Blood Type O POSITIVE 06/06/20 22:23 Antibody Screen Negative 06/06/20 22:23 tele: sr ecg: wnl cxr: clear a/p: 65 f hx htn, dm, cad s/p pci 2007 (after +stress test, no HI), exlap for prior sbo, here with abd pain, vomiting. cad s/p remote pci, now with +trops/nstemi: -pt has no cardiac sxs but trop mildly elevated, peaked at 1.8. ECG unremarkable. Possible demand ischemia from acute issues but given cad hx possibly nstemi as well. Agree with hep gtt for 48-72 hrs (started 7/11 AM). Cont asa, statin, bb, kayla. Would hold off on plavix given her current sbo in case urgent surgery becomes necessary. -check echo, cont tele -will need ischemic eval, most likely with nuclear stress test, when acute issues resolved htn: -cont current meds hld: -cont statin sbo: -surgery following, attempting conservative management for now
--- NOTE | 2020-06-07 11:11 | EKG ---
Test Reason : Blood Pressure : / mmHG Vent. Rate : 063 BPM Atrial Rate : 063 BPM P-R Int : 166 ms QRS Dur : 076 ms QT Int : 456 ms P-R-T Axes : 023 051 068 degrees QTc Int : 466 ms NORMAL SINUS RHYTHM NORMAL ECG WHEN COMPARED WITH ECG OF 05-SEP-2018 19:00, QT HAS LENGTHENED Confirmed by VIOLET RAMIREZ MD ([id number]) on 06/07/2020 11:11:11 AM Referred By: Confirmed By:VIOLET RAMIREZ MD
--- NOTE | 2020-06-07 11:11 | EKG ---
Test Reason : Blood Pressure : / mmHG Vent. Rate : 066 BPM Atrial Rate : 066 BPM P-R Int : 168 ms QRS Dur : 086 ms QT Int : 438 ms P-R-T Axes : 004 010 042 degrees QTc Int : 459 ms NORMAL SINUS RHYTHM NORMAL ECG WHEN COMPARED WITH ECG OF 07-JUN-2020 02:19, NO SIGNIFICANT CHANGE WAS FOUND Confirmed by VIOLET RAMIREZ MD ([id number]) on 06/07/2020 11:11:02 AM Referred By: Chelsea CONNOLLY Confirmed By:VIOLET RAMIREZ MD
--- NOTE | 2020-06-07 11:35 | EKG ---
Test Reason : Blood Pressure : / mmHG Vent. Rate : 062 BPM Atrial Rate : 062 BPM P-R Int : 154 ms QRS Dur : 078 ms QT Int : 464 ms P-R-T Axes : -18 013 043 degrees QTc Int : 470 ms POOR DATA QUALITY, INTERPRETATION MAY BE ADVERSELY AFFECTED NORMAL SINUS RHYTHM NORMAL ECG WHEN COMPARED WITH ECG OF 06-JUN-2020 21:43, NO SIGNIFICANT CHANGE WAS FOUND Confirmed by ASHLEY AGUIRRE, VIOLET ([id number]) on 06/07/2020 11:35:01 AM Referred By: Confirmed By:VIOLET RAMIREZ MD
--- NOTE | 2020-06-07 15:27 | PN ---
Progress Note (short form) - Note Progress Note: SUBJECTIVE Seen and examined at bedside. Patient reports abdominal pain/pressure is improved since insertion of the NG tube. Troponins brendon from 1.1-1.8 last night and decreased to 1.65. Heparin drip started due to concern of an STEMI in the setting of history of CAD. OBJECTIVE Last Vital Signs Temp Pulse Resp BP Pulse Ox 99 F 56 L 20 134/76 96 06/07/20 14:25 06/07/20 14:25 06/07/20 14:25 06/07/20 14:25 06/07/20 09:00 PE: GEN: NAD HEENT: NC/AT [place] RESP: CTAB CARDS: RRR, -MRG ABD: NGT in place, mildly distended, EXT: no swelling/edema NEURO: Non-focal [age]-year-old female with a past medical history of hypertension, diabetes, CAD status post stents and 2008, multiple episodes of SBO, presents with SBO and elevated troponin. #Small bowel obstruction Surgery on board: Appreciate recommendations Continue NG tube N.p.o. except meds Trend KUB #Demand ischemia versus NSTEMI Started on heparin drip Cardiology on board: Appreciate recommendations Hold clopidogrel given concern for possible need for surgery in setting of SBO Continue aspirin, atenolol, Lipitor, Telemetry Troponins down trended #Elevated lactic acid Cause unclear, no signs of acute infection. Possibly secondary to SBO or decrea sed cardiac output in setting of N STEMI? Continue fluids Repeat lactic acid level #Proteinuria and hematuria Follow-up renal ultrasound Repeat UA as an outpatient #DVT: Heparin drip Visit type - Emergency Visit Emergency Visit: Yes ED Registration Date: 06/07/20 Care time: The patient presented to the Emergency Department on the above date and was hospitalized for further evaluation of their emergent condition. - New Patient This patient is new to me today: No - Critical Care Critical Care patient: No
[2020-06-07] MEDS: ACETAMINOPHEN 325 MG TABLET (FP) PO PRN (20:19)
[2020-06-07] MEDS: ATORVASTATIN CA 40 MG TABLET (FP) PO SCH (22:40)
[2020-06-08] MEDS: SODIUM CHLORIDE 1,000 ML IV SCH ×2 (00:28→06:34)
[2020-06-08] MEDS ORDERED: PANTOPRAZOLE SODIUM 40 MG VIAL IVPUSH ONE (05:58)
[2020-06-08] MEDS: INSULIN SLIDING SCALE (NOVOLOG) 1 VIAL SQ SCH ×4 (06:12→22:03)
[2020-06-08 06:45] LABS: BASO % 1.2 % (0-2.0); EOS % 2.2 % (0-4.5); HEMATOCRIT 35.2 % (32.4-45.2); HEMOGLOBIN 11.3 GM/dL (10.7-15.3); LYMPH % 31.1 % (8-40); MCH 26.4 pg (25.7-33.7); MCHC 32.1 g/dl (32.0-36.0); MEAN CELL VOLUME 82.2 fl (80-96); MEAN PLT VOLUME 8.6 fl (7.5-11.1); MONO % 9.5 % (3.8-10.2); PLATELET COUNT 213 K/MM3 (134-434); RBC 4.29 M/mm3 (3.60-5.2); RDW 13.8 % (11.6-15.6); WHITE BLOOD COUNT 5.7 K/mm3 (4.0-10.0)
[2020-06-08 07:26] LABS: BLOOD UREA NITROGEN 12.6 mg/dL (7-18); CALCIUM 9.1 mg/dL (8.5-10.1); CREATININE 0.8 mg/dL (0.55-1.3); POTASSIUM 3.4 mmol/L (3.5-5.1)
--- NOTE | 2020-06-08 09:48 | PN ---
Progress Note (short form) - Note Progress Note: Attending Surgeon Seen in f/u; states she passed a small amount of flatus; no BM; NGT came out yesterday and was replaced; on heparin gtt. VSS AF abdo-soft; nontender; minimally distended and tympanitic NGT-600 cc AXR's reviewed IMP: sbo PLAN: Continue NPO/NGT/no films for today; will repeat 06/09/2020; NGT care d/w the patients nurse and orders placed. Giovanny Vazquez MD FACS
--- NOTE | 2020-06-08 10:49 | PN ---
Progress Note (short form) - Note Progress Note: s: no cp sob palps dizzy Current Medications Generic Name Dose Route Start Last Admin Trade Name Freq PRN Reason Stop Dose Admin Acetaminophen 650 mg 06/07/20 05:14 06/07/20 20:19 Tylenol - PO 650 mg Q4H PRN Administration PAIN LEVEL 4 - 6 Amlodipine Besylate 10 mg 06/07/20 10:00 06/07/20 09:54 Norvasc - PO 10 mg DAILY [facility] Administration Aspirin 81 mg 06/07/20 10:00 06/07/20 09:54 Ecotrin - PO 81 mg DAILY [facility] Administration Atenolol 25 mg 06/07/20 10:00 06/07/20 22:40 Tenormin - PO 25 mg BID [facility] Administration Atorvastatin Calcium 40 mg 06/07/20 22:00 06/07/20 22:40 Lipitor - PO 40 mg HS [facility] Administration Cholecalciferol 1,000 unit 06/07/20 10:00 06/07/20 09:54 Vitamin D3 - PO 1,000 unit DAILY [facility] Administration Cyanocobalamin 100 mcg 06/07/20 10:00 06/07/20 10:09 Vitamin B12 - PO 100 mcg DAILY [facility] Administration Sodium Chloride 1,000 mls @ 125 mls/hr 06/07/20 05:15 06/08/20 06:34 Normal Saline - IV 125 mls/hr ASDIR [facility] Administration Potassium Chloride 10 meq in 100 mls @ 100 mls/hr 06/08/20 08:30 Potassium Chloride 10 Meq Premix Ivpb - IVPB 06/08/20 11:29 Q60M [facility] Insulin Aspart 1 vial 06/07/20 07:00 06/08/20 06:12 Novolog Vial Sliding Scale - SQ Not Given ACHS [facility] Protocol Lisinopril 20 mg 06/07/20 10:00 06/07/20 09:54 Prinivil PO 20 mg DAILY [facility] Administration pe: Vital Signs Period Temp Pulse Resp BP Sys/Duff Pulse Ox Last 24 Hr 97.2 F-99.6 F 48-60 -20 133-149/51-76 96 nad no jvd rrr s1s2 no mrg cta bl nl eff aao3 no le e/c/c abd nd nt no jaundice diaphoresis CBC, BMP 06/08/20 05:40 06/08/20 05:40 tele: sr ecg: wnl cxr: clear a/p: 65 f hx htn, dm, cad s/p pci 2007 (after +stress test, no [place]), exlap for prior sbo, here with abd pain, vomiting. cad s/p remote pci, now with +trops/nstemi: -pt has no cardiac sxs but trop mildly elevated, peaked at 1.8. ECG unremarkable. Possible demand ischemia from acute issues but given cad hx possibly nstemi as well. Started hep gtt 06/07 but then had coffee ground fluids in ngt so hep gtt stopped. Cont statin, bb, kayla. -check echo, cont tele -will need ischemic eval, most likely with nuclear stress test, when acute issues resolved htn: -cont current meds hld: -cont statin sbo: -surgery following, attempting conservative management for now
[2020-06-08] MEDS: ASPIRIN COATED 81 MG TABLET.EC PO SCH (10:55)
[2020-06-08] MEDS: KCL 10 MEQ IVPB 10 MEQ/100 ML INFUS.BAG IVPB SCH ×3 (10:58→14:20)
[2020-06-08] MEDS: CHOLECALCIFEROL (VIT D3) 1,000 UNIT (25 MCG) TABLET PO SCH (11:00)
[2020-06-08] MEDS: amLODIPine BESYLATE 10 MG TABLET (FP) PO SCH (11:00)
[2020-06-08] MEDS: ATENOLOL 25 MG TABLET (FP) PO SCH ×3 (11:00→23:18)
[2020-06-08] MEDS: LISINOPRIL 20 MG TABLET (FP) PO SCH (11:00)
[2020-06-08] MEDS: CYANOCOBALAMIN (VITAMIN B-12) 100 MCG TABLET PO SCH (11:24)
--- NOTE | 2020-06-08 13:29 | PN ---
Teaching Attending Note Name of Resident: Alex Justice ATTENDING PHYSICIAN STATEMENT I saw and evaluated the patient. I reviewed the resident's note and discussed the case with the resident. I agree with the resident's findings and plan as documented. SUBJECTIVE Seen and examined at bedside. Appears tired today. Overnight patient noted to have coffee-ground output through NG tube. Gastric occult blood came back positive. Heparin drip stopped. Currently continuing conservative management OBJECTIVE Last Vital Signs Temp Pulse Resp BP Pulse Ox 99.6 F 48 L 18 143/67 96 06/08/20 09:25 06/08/20 09:25 06/08/20 09:25 06/08/20 09:25 06/07/20 21:00 PE: GEN: NAD HEENT: NC/AT [place] RESP: CTAB CARDS: RRR, -MRG ABD: NGT in place, mildly distended, EXT: no swelling/edema NEURO: Non-focal [age]-year-old female with a past medical history of hypertension, diabetes, CAD status post stents and 2008, multiple episodes of SBO, presents with SBO and elevated troponin. #Small bowel obstruction Surgery on board: Appreciate recommendations Continue NG tube N.p.o. except meds Trend KUB #Demand ischemia versus NSTEMI Started on heparin dripBut developed coffee-ground emesis. Heparin drip stopped Patient will require nuclear stress test once acute issues resolved Cardiology on board: Appreciate recommendations Hold clopidogrel Continue aspirin, atenolol, Lipitor, Telemetry Troponins down trended #Coffee ground emesis + gastric occult blood -f/u CBC in afternoon -stop heparin drip -start PPI BID IV #Elevated lactic acid Cause unclear, no signs of acute infection. Possibly secondary to SBO or decreased cardiac output in setting of N STEMI? Continue fluids Repeat lactic acid level #Proteinuria and hematuria Follow-up renal ultrasound Repeat UA as an outpatient #DVT: Heparin drip
--- NOTE | 2020-06-08 15:19 | PN ---
Physical Exam: SUBJECTIVE: Patient seen and examined at bedside. Coffee ground emesis overnight. Heparin drip held. OBJECTIVE: Vital Signs Period Temp Pulse Resp BP Sys/Duff Pulse Ox Last 24 Hr 97.2 F-99.7 F 48-60 16-20 133-156/51-75 96-98 GENERAL: NAD NGT in place. HEAD: Normal with no signs of trauma. EYES: EOMI Sclera Clear LUNGS: Clear HEART: RRR S1S2 No MRG ABDOMEN: Ex-LAP Surgical Scar. Distended. BS appreciated. No guarding or rigidity. EXTREMITIES: No Sig Edema appreciated PSYCH: Normal mood, normal affect. Laboratory Results - last 24 hr 06/07/20 06/07/20 06/07/20 15:20 16:38 17:37 WBC RBC Hgb Hct MCV MCH MCHC RDW Plt Count MPV Absolute Neuts (auto) Neutrophils % Lymphocytes % Monocytes % Eosinophils % Basophils % Nucleated RBC % PTT (Actin FS) 107.3 H Sodium Potassium Chloride Carbon Dioxide Anion Gap BUN Creatinine Est GFR (CKD-EPI)AfAm Est GFR (CKD-EPI)NonAf POC Glucometer 143 Random Glucose Lactic Acid Calcium Troponin I 1.30 H* Gastric Occult Blood 06/07/20 06/07/20 06/07/20 17:37 21:53 23:15 WBC RBC Hgb Hct MCV MCH MCHC RDW Plt Count MPV Absolute Neuts (auto) Neutrophils % Lymphocytes % Monocytes % Eosinophils % Basophils % Nucleated RBC % PTT (Actin FS) Sodium Potassium Chloride Carbon Dioxide Anion Gap BUN Creatinine Est GFR (CKD-EPI)AfAm Est GFR (CKD-EPI)NonAf POC Glucometer Random Glucose Lactic Acid 1.6 Calcium Troponin I Cancelled 1.14 H* Gastric Occult Blood 06/08/20 06/08/20 06/08/20 01:30 05:40 05:40 WBC 5.7 RBC 4.29 Hgb 11.3 Hct 35.2 MCV 82.2 MCH 26.4 MCHC 32.1 RDW 13.8 Plt Count 213 MPV 8.6 Absolute Neuts (auto) 3.2 Neutrophils % 56.0 D Lymphocytes % 31.1 D Monocytes % 9.5 D Eosinophils % 2.2 D Basophils % 1.2 Nucleated RBC % 0 PTT (Actin FS) 81.2 H Sodium 141 Potassium 3.4 L Chloride 105 Carbon Dioxide 27 Anion Gap 8 BUN 12.6 Creatinine 0.8 Est GFR (CKD-EPI)AfAm 88.42 Est GFR (CKD-EPI)NonAf 76.29 POC Glucometer Random Glucose 118 H Lactic Acid Calcium 9.1 Troponin I Gastric Occult Blood 06/08/20 06/08/20 06/08/20 05:44 08:30 08:30 WBC RBC Hgb Hct MCV MCH MCHC RDW Plt Count MPV Absolute Neuts (auto) Neutrophils % Lymphocytes % Monocytes % Eosinophils % Basophils % Nucleated RBC % PTT (Actin FS) 28.9 Sodium Potassium Chloride Carbon Dioxide Anion Gap BUN Creatinine Est GFR (CKD-EPI)AfAm Est GFR (CKD-EPI)NonAf POC Glucometer 116 Random Glucose Lactic Acid Calcium Troponin I Gastric Occult Blood Positive 06/08/20 11:51 WBC RBC Hgb Hct MCV MCH MCHC RDW Plt Count MPV Absolute Neuts (auto) Neutrophils % Lymphocytes % Monocytes % Eosinophils % Basophils % Nucleated RBC % PTT (Actin FS) Sodium Potassium Chloride Carbon Dioxide Anion Gap BUN Creatinine Est GFR (CKD-EPI)AfAm Est GFR (CKD-EPI)NonAf POC Glucometer 133 Random Glucose Lactic Acid Calcium Troponin I Gastric Occult Blood Active Medications Generic Name Dose Route Start Last Admin Trade Name Freq PRN Reason Stop Dose Admin Acetaminophen 650 mg 06/07/20 05:14 06/07/20 20:19 Tylenol - PO 650 mg Q4H PRN Administration PAIN LEVEL 4 - 6 Amlodipine Besylate 10 mg 06/07/20 10:00 06/08/20 11:00 Norvasc - PO 10 mg DAILY [facility]ION[facility] Administration Aspirin 81 mg 06/07/20 10:00 06/08/20 10:55 Ecotrin - PO Not Given DAILY LIONEL Atenolol 25 mg 06/07/20 10:00 06/08/20 11:00 Tenormin - PO 25 mg BID LIONEL Administration Atorvastatin Calcium 40 mg 06/07/20 22:00 06/07/20 22:40 Lipitor - PO 40 mg HS LIONEL Administration Cholecalciferol 1,000 unit 06/07/20 10:00 06/08/20 11:00 Vitamin D3 - PO 1,000 unit DAILY LIONEL Administration Cyanocobalamin 100 mcg 06/07/20 10:00 06/07/20 10:09 Vitamin B12 - PO 100 mcg DAILY LIONEL Administration Sodium Chloride 1,000 mls @ 125 mls/hr 06/07/20 05:15 06/08/20 06:34 Normal Saline - IV 125 mls/hr ASDIR LIONEL Administration Insulin Aspart 1 vial 06/07/20 07:00 06/08/20 12:27 Novolog Vial Sliding Scale - SQ Not Given ACHS [facility] Protocol Lisinopril 20 mg 06/07/20 10:00 06/08/20 11:00 Prinivil PO 20 mg DAILY LIONEL Administration Pantoprazole Sodium 40 mg 06/08/20 22:00 Protonix Iv IVPUSH BID LIONEL ASSESSMENT/PLAN: 65-year-old female with a past medical history of hypertension, diabetes, CAD status post stents and 2008, multiple episodes of SBO, presents with SBO and elevated troponin. #SBO Surgery on board Dr Vazquez----> Continue NPO/NGT/no films for today; will repeat 06/09/2020; N.p.o. except meds #Demand ischemia versus NSTEMI Coffee-ground emesis overnight. Heparin drip stopped Patient will require Stress MIBI once acute issues resolved Cardiology on board----> pt has no cardiac sxs but trop mildly elevated, peaked at 1.8. ECG unremarkable. Possible demand ischemia from acute issues but given cad hx possibly nstemi as well. Cont statin, bb, kayla. Check echo, cont tele Hold clopidogrel #Coffee ground emesis + gastric occult blood -f/u CBC in afternoon -stop heparin drip -start PPI BID IV #HTN -Atenolol, Lisinopril, Amlidpine continue #DM ISS -Hold oral hypoglycemics #Proteinuria and hematuria Follow-up renal ultrasound Repeat UA as an outpatient #DVT ppx: Heparin drip Stopped Visit type - Emergency Visit Emergency Visit: Yes ED Registration Date: 06/07/20 Care time: The patient presented to the Emergency Department on the above date and was hospitalized for further evaluation of their emergent condition. - New Patient This patient is new to me today: No - Critical Care Critical Care patient: No - Discharge Referral Referred to [facility] Med P.C.: No ATTENDING PHYSICIAN STATEMENT I saw and evaluated the patient. I reviewed the resident's note and discussed the case with the resident. I agree with the resident's findings and plan as documented. SUBJECTIVE: OBJECTIVE: ASSESSMENT AND PLAN:
[2020-06-08 16:00] LABS: HEMATOCRIT 37.7 % (32.4-45.2); HEMOGLOBIN 12.1 GM/dL (10.7-15.3); MCH 26.5 pg (25.7-33.7); MCHC 32.2 g/dl (32.0-36.0); MEAN CELL VOLUME 82.4 fl (80-96); MEAN PLT VOLUME 7.8 fl (7.5-11.1); PLATELET COUNT 229 K/MM3 (134-434); RBC 4.57 M/mm3 (3.60-5.2); WHITE BLOOD COUNT 6.8 K/mm3 (4.0-10.0)
[2020-06-08] MEDS ORDERED: PT OWN MED DRAWER 7, Y5N ONE (16:46)
[2020-06-08] MEDS: ACETAMINOPHEN 325 MG TABLET (FP) PO PRN (18:17)
[2020-06-08] MEDS: PANTOPRAZOLE SODIUM 40 MG VIAL IVPUSH SCH (22:17)
[2020-06-08] MEDS: traMADol HCL 50 MG TABLET PO PRN (22:17)
[2020-06-08] MEDS: ATORVASTATIN CA 40 MG TABLET (FP) PO SCH (22:41)
[2020-06-08] MEDS ORDERED: BENZOCAINE/MENTH/CETYLPYRD CL 1 EACH LOZENGE MM PRN (22:54)
[2020-06-09] MEDS: INSULIN SLIDING SCALE (NOVOLOG) 1 VIAL SQ SCH ×4 (06:13→21:17)
[2020-06-09] MEDS: SODIUM CHLORIDE 1,000 ML IV SCH ×2 (06:13→13:08)
[2020-06-09 07:14] LABS: HEMATOCRIT 35.1 % (32.4-45.2); HEMOGLOBIN 11.2 GM/dL (10.7-15.3); MCH 26.5 pg (25.7-33.7); MEAN CELL VOLUME 82.9 fl (80-96); MEAN PLT VOLUME 8.5 fl (7.5-11.1); PLATELET COUNT 202 K/MM3 (134-434); RBC 4.24 M/mm3 (3.60-5.2); RDW 13.8 % (11.6-15.6); WHITE BLOOD COUNT 7.1 K/mm3 (4.0-10.0)
[2020-06-09 07:45] LABS: ALBUMIN 3.2 g/dl (3.4-5.0); BILIRUBIN,TOTAL 0.6 mg/dL (0.2-1); BLOOD UREA NITROGEN 11.7 mg/dL (7-18); CALCIUM 8.6 mg/dL (8.5-10.1); CREATININE 0.7 mg/dL (0.55-1.3); MAGNESIUM 1.5 mg/dL (1.8-2.4); PHOSPHOROUS 2.4 mg/dL (2.5-4.9); POTASSIUM 3.5 mmol/L (3.5-5.1); TOT PROT 5.7 g/dl (6.4-8.2)
[2020-06-09] MEDS ORDERED: MAGNESIUM SULF 50% (8.12 MEQ/2 ML-1 GM VIAL) IVPB ONE (08:45)
[2020-06-09] MEDS ORDERED: NAPH,MB-DB/K PH,MBDB POWDER PACKET PO ONE (09:00)
[2020-06-09] MEDS ORDERED: PT OWN MED DRAWER 7, Y5N ONE (09:09)
[2020-06-09] MEDS: ASPIRIN COATED 81 MG TABLET.EC PO SCH (09:35)
[2020-06-09] MEDS: ATENOLOL 25 MG TABLET (FP) PO SCH ×2 (09:35→21:34)
--- NOTE | 2020-06-09 10:26 | PN ---
Progress Note (short form) - Note Progress Note: s: no cp sob palps dizzy Current Medications Generic Name Dose Route Start Last Admin Trade Name Freq PRN Reason Stop Dose Admin Acetaminophen 650 mg 06/07/20 05:14 06/08/20 18:17 Tylenol - PO 650 mg Q4H PRN Administration PAIN LEVEL 4 - 6 Amlodipine Besylate 10 mg 06/07/20 10:00 06/08/20 11:00 Norvasc - PO 10 mg DAILY LIONEL Administration Aspirin 81 mg 06/07/20 10:00 06/09/20 09:35 Ecotrin - PO Not Given DAILY LIONEL Atenolol 25 mg 06/07/20 10:00 06/09/20 09:35 Tenormin - PO Not Given BID LIONEL Atorvastatin Calcium 40 mg 06/07/20 22:00 06/08/20 22:41 Lipitor - PO 40 mg HS LIONEL Administration Cholecalciferol 1,000 unit 06/07/20 10:00 06/08/20 11:00 Vitamin D3 - PO 1,000 unit DAILY LIONEL Administration Cyanocobalamin 100 mcg 06/07/20 10:00 06/08/20 11:24 Vitamin B12 - PO 100 mcg DAILY LIONEL Administration Sodium Chloride 1,000 mls @ 125 mls/hr 06/07/20 05:15 06/09/20 06:13 Normal Saline - IV 125 mls/hr ASDIR LIONEL Administration Insulin Aspart 1 vial 06/07/20 07:00 06/09/20 06:13 Novolog Vial Sliding Scale - SQ Not Given ACHS [facility] Protocol Lisinopril 20 mg 06/07/20 10:00 06/08/20 11:00 Prinivil PO 20 mg DAILY LIONEL Administration Pantoprazole Sodium 40 mg 06/08/20 22:00 06/08/20 22:17 Protonix Iv IVPUSH 40 mg BID LIONEL Administration Tramadol HCl 50 mg 06/08/20 19:10 06/08/20 22:17 Ultram - PO 50 mg Q8H PRN Administration PAIN LEVEL 7 - 10 pe: Vital Signs Period Temp Pulse Resp BP Sys/Duff Pulse Ox Last 24 Hr 97.9 F-99.7 F 45-56 16-20 138-175/57-86 95-97 nad no jvd rrr s1s2 no mrg cta bl nl eff aao3 no le e/c/c abd nd nt no jaundice diaphoresis CBC, BMP 06/09/20 05:51 06/09/20 05:51 tele: sr ecg: wnl cxr: clear a/p: 65 f hx htn, dm, cad s/p pci 2007 (after +stress test, no AK), exlap for prior sbo, here with abd pain, vomiting. cad s/p remote pci, now with +trops/nstemi: -pt has no cardiac sxs but trop mildly elevated, peaked at 1.8. ECG unremarkable. Possible demand ischemia from acute issues but given cad hx possibly nstemi as well. Started hep gtt 06/07 but then had coffee ground fluids in ngt so hep gtt stopped. Cont statin, bb, kayla. -check echo, cont tele -will need ischemic eval, most likely with nuclear stress test, when acute issues resolved htn: -cont current meds hld: -cont statin sbo: -surgery following, attempting conservative management for now
[2020-06-09] MEDS: amLODIPine BESYLATE 10 MG TABLET (FP) PO SCH (10:36)
[2020-06-09] MEDS: CHOLECALCIFEROL (VIT D3) 1,000 UNIT (25 MCG) TABLET PO SCH (10:36)
[2020-06-09] MEDS: LISINOPRIL 20 MG TABLET (FP) PO SCH (10:36)
[2020-06-09] MEDS: PANTOPRAZOLE SODIUM 40 MG VIAL IVPUSH SCH ×2 (10:37→21:34)
--- NOTE | 2020-06-09 10:45 | PN ---
Progress Note (short form) - Note Progress Note: GENERAL SURGERY 65 y/o female admitted with n/v and abdominal pain. + h/o SBO (1 managed operatively & one conservatively) NGT inserted. Passed flatus and had bm 06/08. Voiding spontaneosuly on a bedpan. AXR 06/09: high grade psbo. air & stool in colon. no pneumotosis AVSS. Afebrile. Gen: nad ENT: NGT on lwcs ABD: softly distended. Not ttp. + bowel sounds (hypoactive). No guarding/rigidity LE: all compartments soft. <Fernando Joaquin P - Last Filed: 06/09/20 13:46> - Note Progress Note: Attending Surgeon: I personally saw and examined the patient. My examination reveals a patient with ongoing SBO. I discussed the case with the surgical PA and agree with their findings and plan of care with any exceptions as noted. ~ Giovanny Vazquez MD, FACS <Giovanny Vazquez N - Last Filed: 06/13/20 10:39> Problem List - Problems (1) Small bowel obstruction Assessment/Plan: NPO IVF GI PPx DVT PPx Serial abd exams Replete elytes PRN MOnitor/record ouptut q shift Pain management (avoid narcotics) Aggressive mobilization Cont care per primary team Surgery Team to cont following Above plan discussed with Dr. Vazquez and agrees Code(s): K56.609 - UNSP INTESTNL OBST, UNSP TO PARTIAL VERSUS COMPLETE OBST <Fernando Joaquin P - Last Filed: 06/09/20 13:46>
[2020-06-09] MEDS: CYANOCOBALAMIN (VITAMIN B-12) 100 MCG TABLET PO SCH (13:06)
[2020-06-09] MEDS ORDERED: DEXTROSE 5%-0.45% SALINE 1,000 ML IV SCH (16:30)
[2020-06-09] MEDS: BENZOCAINE/MENTH/CETYLPYRD CL 1 EACH LOZENGE MM PRN (16:46)
--- NOTE | 2020-06-09 17:39 | ECHO ---
Version: 1 Name: LOIS BENJAMIN Exam: Adult Echocardiogram Study Date: 06/09/2020, 2:04 PM Age: 65 Years MMode/2D Measurements & Calculations IVSd: 0.84 cm LVIDs: 3.0 cm LVIDd: 4.7 cm LVPWd: 0.77 cm LAV (MOD-bp): 71.0 ml ACS: 1.53 cm Ao root diam: 2.8 cm LVOT diam: 1.95 cm LA dimension: 3.3 cm Doppler Measurements & Calculations MV E max tony: 123.4 cm/sec Med E/e': 27.5 MV A max tony: 159.1 cm/sec Med Peak E' Tony: 4.5 cm/sec MV E/A: 0.78 Lat E/e': 18.9 Lat Peak E' Tony: 6.5 cm/sec MR max P.4 mmHg Ao max P.4 mmHg JOSIE(I,D): 2.46 cm Ao mean P.4 mmHg LV V1 mean: 98.8 cm/sec Ao V2 max: 208.5 cm/sec LV V1 mean P.5 mmHg AI P1/2t: 569.4 msec TR max tony: 236.8 cm/sec TR max P.6 mmHg Procedure TDS. Patient scanned supine. Left Ventricle The left ventricle is normal in size. There is mild concentric left ventricular hypertrophy. apical muscle strips. Left ventricular systolic function is normal. Ejection Fraction = 60-65%. The transmitral sp ectral Doppler flow pattern is suggestive of impaired LV relaxation. Right Ventricle The right ventricle is normal in size and function. Atria The left atrium is mildly dilated. Right atrial size is normal. Mitral Valve There is mild mitral valve thickening. There is mild mitral regurgitation. Tricuspid Valve The tricuspid valve is not well visualized, but is grossly normal. There is Trace to mild tricuspid regurgitation. Right ventricular systolic pressure is normal. Aortic Valve The aortic valve is not well visualized. No hemodynamically significant valvular aortic stenosis. Mi ld aortic regurgitation. Great Vessels The aortic root is normal size. Pericardium/Pleura There is no pericardial effusion. Summary Statements LV: Normal size,mild LVH, normal systolic function, EF 55-60%; apical muscle strippings, impaired re laxation RV: Normal LA: Mildly dilated Mild AR,MR Trace to mild TR with normal RVSP Shahram Avitia 06/09/2020, 5:38 PM Ordering Physician: Floyd Ramirez Referring Physician: FLOYD RAMIREZ Performed By: Kareen Resendiz
--- NOTE | 2020-06-09 17:45 | PN ---
Physical Exam: SUBJECTIVE: Patient seen and examined at bedside. The patient reports being tired. Due to coffee ground emesis, the heparin is still being held. Patient had a bowel movement yesterday. OBJECTIVE: Vital Signs Period Temp Pulse Resp BP Sys/Duff Pulse Ox Last 24 Hr 97.9 F-98.7 F 45-56 16-20 138-175/57-86 95-98 GENERAL: The patient is awake, alert, and fully oriented, in no acute distress. HEAD: Normal with no signs of trauma. EYES: Extraocular movements intact. No ptosis. ENT: Ears normal, nares patent, oropharynx clear without exudates, moist mucous membranes. NECK: Trachea midline, full range of motion, supple. LUNGS: Breath sounds equal, clear to auscultation bilaterally, no wheezes, no crackles, no accessory muscle use. HEART: Regular rate and rhythm, S1, S2. ABDOMEN: Soft, nontender, nondistended, normoactive bowel sounds, no guarding, no rebound, no masses. EXTREMITIES: 2+ pulses, warm, well-perfused. NEUROLOGICAL: Normal speech, gait not observed. PSYCH: Normal mood, normal affect. SKIN: Warm, dry, normal turgor, no rashes or lesions noted Laboratory Results - last 24 hr 06/07/20 06/09/20 06/09/20 10:20 05:51 05:51 WBC 7.1 RBC 4.24 Hgb 11.2 Hct 35.1 MCV 82.9 MCH 26.5 MCHC 32.0 RDW 13.8 Plt Count 202 MPV 8.5 PTT (Actin FS) 23.3 L Sodium Potassium Chloride Carbon Dioxide Anion Gap BUN Creatinine Est GFR (CKD-EPI)AfAm Est GFR (CKD-EPI)NonAf POC Glucometer Random Glucose Calcium Phosphorus Magnesium Total Bilirubin AST ALT Alkaline Phosphatase Total Protein Albumin COVID-19 (EZEKIEL) Not detected 06/09/20 06/09/20 06/09/20 05:51 11:22 14:19 WBC RBC Hgb Hct MCV MCH MCHC RDW Plt Count MPV PTT (Actin FS) Sodium 140 Potassium 3.5 Chloride 105 Carbon Dioxide 26 Anion Gap 10 BUN 11.7 Creatinine 0.7 Est GFR (CKD-EPI)AfAm 103.91 Est GFR (CKD-EPI)NonAf 89.65 POC Glucometer 77 85 Random Glucose 85 Calcium 8.6 Phosphorus 2.4 L Magnesium 1.5 L Total Bilirubin 0.6 AST 12 L ALT 11 L Alkaline Phosphatase 32 L Total Protein 5.7 L Albumin 3.2 L COVID-19 (EZEKIEL) 06/09/20 16:49 WBC RBC Hgb Hct MCV MCH MCHC RDW Plt Count MPV PTT (Actin FS) Sodium Potassium Chloride Carbon Dioxide Anion Gap BUN Creatinine Est GFR (CKD-EPI)AfAm Est GFR (CKD-EPI)NonAf POC Glucometer 84 Random Glucose Calcium Phosphorus Magnesium Total Bilirubin AST ALT Alkaline Phosphatase Total Protein Albumin COVID-19 (EZEKIEL) Active Medications Generic Name Dose Route Start Last Admin Trade Name Freq PRN Reason Stop Dose Admin Acetaminophen 650 mg 06/07/20 05:14 06/08/20 18:17 Tylenol - PO 650 mg Q4H PRN Administration PAIN LEVEL 4 - 6 Amlodipine Besylate 10 mg 06/07/20 10:00 06/09/20 10:36 Norvasc - PO 10 mg DAILY LIONEL Administration Aspirin 81 mg 06/07/20 10:00 06/09/20 09:35 Ecotrin - PO Not Given DAILY LIONEL Atenolol 25 mg 06/07/20 10:00 06/09/20 09:35 Tenormin - PO Not Given BID LIONEL Atorvastatin Calcium 40 mg 06/07/20 22:00 06/08/20 22:41 Lipitor - PO 40 mg HS LIONEL Administration Benzocaine/Menthol 1 each 06/09/20 16:21 06/09/20 16:46 Cepacol Lozenge - MM 1 each PRN PRN Administration SORE THROAT Cholecalciferol 1,000 unit 06/07/20 10:00 06/09/20 10:36 Vitamin D3 - PO 1,000 unit DAILY LIONEL Administration Cyanocobalamin 100 mcg 06/07/20 10:00 06/09/20 13:06 Vitamin B12 - PO 100 mcg DAILY LIONEL Administration Dextrose/Sodium Chloride 1,000 mls @ 100 mls/hr 06/09/20 16:30 06/09/20 16:45 D5-1/2ns - IV 100 mls/hr ASDIR LIONEL Administration Insulin Aspart 1 vial 06/07/20 07:00 06/09/20 16:52 Novolog Vial Sliding Scale - SQ Not Given ACHS [facility] Protocol Lisinopril 20 mg 06/07/20 10:00 06/09/20 10:36 Prinivil PO 20 mg DAILY LIONEL Administration Pantoprazole Sodium 40 mg 06/08/20 22:00 06/09/20 10:37 Protonix Iv IVPUSH 40 mg BID LIONEL Administration Tramadol HCl 50 mg 06/08/20 19:10 06/08/20 22:17 Ultram - PO 50 mg Q8H PRN Administration PAIN LEVEL 7 - 10 ASSESSMENT/PLAN: 65 year old female patent with past medical history that includes HTN, DM, CAD s/p stents, and multiple episodes of SBOs who presented to the ED with nausea, vomiting, and abdominal pain. 1. SBO - SBO found on CT A/P - NG tube - IV fluids - per surgery, the patient is high risk for surgery at this time unless her situation becomes life threatening and needs emergency surgery. Current plan, per surgery, is conservative management. - Surgery following 2. Coffee ground emesis secondary to possible GI bleed - Hgb 11.2 - Gastic Occult Blood Test positive - Heparin being held - The patient is taking a PPI 3. Tropenemia secondary to demand ischemia vs NSTEMI - ED ECG did not show ST-elevations or ST-depression. - Troponins did not sharply increase, but stayed between 1 and 2, which is a less typical pattern for an NSTEMI. 4. HTN - The patient is taking amlodipine, lisinopril, atenolol 5. DM - ISS DVT PPx - SCDs. Heparin held due to coffee ground emesis GI PPx - Protonix Dispo - Conservative management for the patient's SBO with careful monitoring in case the patient requires more aggressive intervention Visit type - Emergency Visit Emergency Visit: Yes ED Registration Date: 06/07/20 Care time: The patient presented to the Emergency Department on the above date and was hospitalized for further evaluation of their emergent condition. - New Patient This patient is new to me today: No - Critical Care Critical Care patient: No - Discharge Referral Referred to [facility] Med [facility] No ATTENDING PHYSICIAN STATEMENT I saw and evaluated the patient. I reviewed the resident's note and discussed the case with the resident. I agree with the resident's findings and plan as documented. SUBJECTIVE: OBJECTIVE: ASSESSMENT AND PLAN:
[2020-06-09] MEDS: ATORVASTATIN CA 40 MG TABLET (FP) PO SCH (21:34)
[2020-06-10] MEDS: LISINOPRIL 20 MG TABLET (FP) PO SCH ×2 (06:05→10:50)
[2020-06-10] MEDS: INSULIN SLIDING SCALE (NOVOLOG) 1 VIAL SQ SCH ×4 (06:07→21:54)
[2020-06-10 06:37] LABS: HEMOGLOBIN 11.7 GM/dL (10.7-15.3); MCH 26.7 pg (25.7-33.7); MCHC 32.4 g/dl (32.0-36.0); MEAN CELL VOLUME 82.4 fl (80-96); MEAN PLT VOLUME 8.3 fl (7.5-11.1); PLATELET COUNT 209 K/MM3 (134-434); RBC 4.38 M/mm3 (3.60-5.2); RDW 13.8 % (11.6-15.6); WHITE BLOOD COUNT 7.8 K/mm3 (4.0-10.0)
[2020-06-10 07:05] LABS: BLOOD UREA NITROGEN 8.8 mg/dL (7-18); CREATININE 0.8 mg/dL (0.55-1.3); MAGNESIUM 1.6 mg/dL (1.8-2.4); PHOSPHOROUS 2.4 mg/dL (2.5-4.9); POTASSIUM 3.7 mmol/L (3.5-5.1)
[2020-06-10] MEDS ORDERED: NAPH,MB-DB/K PH,MBDB POWDER PACKET PO ONE (08:00)
[2020-06-10] MEDS ORDERED: MAGNESIUM SULF 50% (8.12 MEQ/2 ML-1 GM VIAL) IVPB ONE (08:00)
--- NOTE | 2020-06-10 08:10 | PN ---
Progress Note (short form) - Note Progress Note: S: Pt reports abdominal pain improved, Pt passing flatus, ambulating, No complaints this AM. Denies hematemesis Selected Entries 06/09/20 06/09/20 06/09/20 07:59 10:50 17:05 Output, Gastric 250 100 100 Drainage Amount Vitals reviewed: afebrile NAD unlabored breathing on RA NGT in place abd: soft, ND, NT tympanic diffusely, surgical scars noted and well healed Ext: nonedematous CBC, BMP 06/10/20 05:52 06/10/20 05:52 Current Medications Generic Name Dose Route Start Last Admin Trade Name Freq PRN Reason Stop Dose Admin Acetaminophen 650 mg 06/07/20 05:14 06/08/20 18:17 Tylenol - PO 650 mg Q4H PRN Administration PAIN LEVEL 4 - 6 Amlodipine Besylate 10 mg 06/07/20 10:00 06/09/20 10:36 Norvasc - PO 10 mg DAILY LIONEL Administration Aspirin 81 mg 06/07/20 10:00 06/09/20 09:35 Ecotrin - PO Not Given DAILY LIONEL Atenolol 25 mg 06/07/20 10:00 06/09/20 21:34 Tenormin - PO 25 mg BID LIONEL Administration Atorvastatin Calcium 40 mg 06/07/20 22:00 06/09/20 21:34 Lipitor - PO 40 mg HS LIONEL Administration Benzocaine/Menthol 1 each 06/09/20 16:21 06/09/20 16:46 Cepacol Lozenge - MM 1 each PRN PRN Administration SORE THROAT Cholecalciferol 1,000 unit 06/07/20 10:00 06/09/20 10:36 Vitamin D3 - PO 1,000 unit DAILY LIONEL Administration Cyanocobalamin 100 mcg 06/07/20 10:00 06/09/20 13:06 Vitamin B12 - PO 100 mcg DAILY LIONEL Administration Sodium Chloride 1,000 mls @ 100 mls/hr 06/10/20 08:00 Normal Saline - IV ASDIR LIONEL Insulin Aspart 1 vial 06/07/20 07:00 06/10/20 06:07 Novolog Vial Sliding Scale - SQ 2 units ACHS [facility]IONEL Administration Protocol Lisinopril 20 mg 06/07/20 10:00 06/10/20 06:05 Prinivil PO 20 mg DAILY LIONEL Administration Pantoprazole Sodium 40 mg 06/08/20 22:00 06/09/20 21:34 Protonix Iv IVPUSH 40 mg BID LIONEL Administration Tramadol HCl 50 mg 06/08/20 19:10 06/08/20 22:17 Ultram - PO 50 mg Q8H PRN Administration PAIN LEVEL 7 - 10 A&P: 65yo F with hx of multiple SBOs requiring ex lap, hysterectomy, appendectomy presents with N/V and abd pain. Found to have a distal SBO with transition point in RLQ. Now passing flatus with BM, found to have elevated troponins #Distal SBO 2/2 adhesions -AXR pending 06/10 -Maintain NGT to LWS -Monitor I&Os -NPO/IVFs -PPI -serial abd exams -replete electrolytes PRN -Labs: WBC 7.8, K+3.7, Mg 1.6, Phos 2.4, H&H stable elevated troponin (possible NSTEMI)-hep gtt d/c'ed due to GIB -DVT ppx: OOB, SCDs, SQH (HELD for hematemesis) -pain control PRN -appreciate hospitalist comanagement -if suspect GI bleed, please consult GI -will continue to follow d/w Dr. Vazquez <Faith Rowland - Last Filed: 06/10/20 08:47> - Note Progress Note: Attending Surgeon: I personally saw and examined the patient. My examination reveals a patient with ongoing SBO. I discussed the case with the surgical PA and agree with their findings and plan of care with any exceptions as noted. ~ Giovanny Vazquez MD, FACS <Giovanny Vazquez - Last Filed: 06/13/20 10:38>
[2020-06-10] MEDS: ASPIRIN COATED 81 MG TABLET.EC PO SCH (09:50)
[2020-06-10] MEDS: ATENOLOL 25 MG TABLET (FP) PO SCH (10:00)
[2020-06-10] MEDS ORDERED: PT OWN MED DRAWER 7, Y5N ONE (10:05)
[2020-06-10] MEDS: SODIUM CHLORIDE 1,000 ML IV SCH (11:31)
[2020-06-10] MEDS: PANTOPRAZOLE SODIUM 40 MG VIAL IVPUSH SCH ×2 (11:32→21:38)
[2020-06-10] MEDS: amLODIPine BESYLATE 10 MG TABLET (FP) PO SCH (11:32)
[2020-06-10] MEDS: CYANOCOBALAMIN (VITAMIN B-12) 100 MCG TABLET PO SCH (11:32)
[2020-06-10] MEDS: CHOLECALCIFEROL (VIT D3) 1,000 UNIT (25 MCG) TABLET PO SCH (11:36)
[2020-06-10 13:04] LABS: ALBUMIN 3.3 g/dl (3.4-5.0); BILIRUBIN,TOTAL 0.6 mg/dL (0.2-1); TOT PROT 6.2 g/dl (6.4-8.2)
--- NOTE | 2020-06-10 13:04 | PN ---
Progress Note (short form) - Note Progress Note: s: no cp sob palps dizzy Current Medications Generic Name Dose Route Start Last Admin Trade Name Freq PRN Reason Stop Dose Admin Acetaminophen 650 mg 06/07/20 05:14 06/08/20 18:17 Tylenol - PO 650 mg Q4H PRN Administration PAIN LEVEL 4 - 6 Amlodipine Besylate 10 mg 06/07/20 10:00 06/10/20 11:32 Norvasc - PO 10 mg DAILY [facility] Administration Aspirin 81 mg 06/07/20 10:00 06/10/20 09:50 Ecotrin - PO Not Given DAILY [facility] Atorvastatin Calcium 40 mg 06/07/20 22:00 06/09/20 21:34 Lipitor - PO 40 mg HS [facility] Administration Benzocaine/Menthol 1 each 06/09/20 16:21 06/09/20 16:46 Cepacol Lozenge - MM 1 each PRN PRN Administration SORE THROAT Cholecalciferol 1,000 unit 06/07/20 10:00 06/10/20 11:36 Vitamin D3 - PO 1,000 unit DAILY [facility] Administration Cyanocobalamin 100 mcg 06/07/20 10:00 06/10/20 11:32 Vitamin B12 - PO 100 mcg DAILY [facility] Administration Sodium Chloride 1,000 mls @ 100 mls/hr 06/10/20 08:00 06/10/20 11:31 Normal Saline - IV 100 mls/hr ASDIR [facility] Administration Insulin Aspart 1 vial 06/07/20 07:00 06/10/20 11:54 Novolog Vial Sliding Scale - SQ Not Given ACHS [facility] Protocol Lisinopril 20 mg 06/07/20 10:00 06/10/20 10:50 Prinivil PO Not Given DAILY [facility] Pantoprazole Sodium 40 mg 06/08/20 22:00 06/10/20 11:32 Protonix Iv IVPUSH 40 mg BID [facility] Administration Tramadol HCl 50 mg 06/08/20 19:10 06/08/20 22:17 Ultram - PO 50 mg Q8H PRN Administration PAIN LEVEL 7 - 10 Vital Signs Period Temp Pulse Resp BP Sys/Duff Pulse Ox Last 24 Hr 98.2 F-99.1 F 46-57 16-20 145-181/57-77 98-99 nad no jvd rrr s1s2 no mrg cta bl nl eff aao3 no le e/c/c abd nd nt no jaundice diaphoresis tele: sinus malcom ecg: wnl cxr: clear echo 05/2020 mild LVH, nl LV function, E/A reversal, mild AR/MR a/p: 65 f hx htn, dm, cad s/p pci 2007 (after +stress test, no [place]), exlap for prior sbo, here with abd pain, vomiting. cad s/p remote pci, now with +trops/nstemi: -pt has no cardiac sxs but trop mildly elevated, peaked at 1.8. ECG unremarkable. Possible demand ischemia from acute issues but given cad hx possibly nstemi as well. Started hep gtt 06/07 but then had coffee ground fluids in ngt so hep gtt stopped. Cont statin, bb, kayla. -cont tele -will need ischemic eval, most likely with nuclear stress test, when acute issues resolved htn: -not well controlled - dc atenolol for bradycardia in the 40s, has not been receiving - received PO meds per NGT this morning, if not improving may need PRN IV meds given she has NGT to LWS and may not have adequate absorption of PO meds hld: -cont statin sbo: -surgery following, attempting conservative management for now
[2020-06-10] MEDS ORDERED: POTASSIUM PHOSPHATE 15 MM in SODIUM CHLORIDE 250 ML IVPB ONE (13:50)
--- NOTE | 2020-06-10 14:06 | PN ---
Teaching Attending Note Name of Resident: Rudy Antonio ATTENDING PHYSICIAN STATEMENT I saw and evaluated the patient. I reviewed the resident's note and discussed the case with the resident. I agree with the resident's findings and plan as documented. SUBJECTIVE: Ongoing abdominal discomfort. NG tube draining bilious material. No fever/chills. OBJECTIVE: Afebrile, Hemodnamically Stable. Last Vital Signs Temp Pulse Resp BP Pulse Ox 99.1 F 49 L 16 194/77 H 99 06/10/20 13:05 06/10/20 13:08 06/10/20 13:07 06/10/20 13:07 06/10/20 09:05 HEENT - Atraumatic, Normocephalic. NGT in situ. Heart - S1, S2, RRR Lungs - clear to auscultation Abdomen - mild distension. Mild generalized tenderness. Bowel Sounds ++ Extremities - no edema, no calf tenderness. Neuro - AAO x 3. Tone/Power normal all extremities. Laboratory Results - last 24 hr 06/09/20 06/09/20 06/10/20 14:19 16:49 05:52 WBC 7.8 RBC 4.38 Hgb 11.7 Hct 36.0 MCV 82.4 MCH 26.7 MCHC 32.4 RDW 13.8 Plt Count 209 MPV 8.3 PTT (Actin FS) Sodium Potassium Chloride Carbon Dioxide Anion Gap BUN Creatinine Est GFR (CKD-EPI)AfAm Est GFR (CKD-EPI)NonAf POC Glucometer 85 84 Random Glucose Calcium Phosphorus Magnesium Total Bilirubin AST ALT Alkaline Phosphatase Total Protein Albumin 06/10/20 06/10/20 06/10/20 05:52 05:52 11:51 WBC RBC Hgb Hct MCV MCH MCHC RDW Plt Count MPV PTT (Actin FS) 29.8 Sodium 139 Potassium 3.7 Chloride 103 Carbon Dioxide 30 Anion Gap 6 L BUN 8.8 Creatinine 0.8 Est GFR (CKD-EPI)AfAm 88.42 Est GFR (CKD-EPI)NonAf 76.29 POC Glucometer 142 Random Glucose 182 H Calcium 9.0 Phosphorus 2.4 L Magnesium 1.6 L Total Bilirubin 0.6 AST 13 L ALT 13 Alkaline Phosphatase 33 L Total Protein 6.2 L Albumin 3.3 L Current Medications Generic Name Dose Route Start Last Admin Trade Name Freq PRN Reason Stop Dose Admin Acetaminophen 650 mg 06/07/20 05:14 06/08/20 18:17 Tylenol - PO 650 mg Q4H PRN Administration PAIN LEVEL 4 - 6 Amlodipine Besylate 10 mg 06/07/20 10:00 06/10/20 11:32 Norvasc - PO 10 mg DAILY [facility] Administration Aspirin 81 mg 06/07/20 10:00 06/10/20 09:50 Ecotrin - PO Not Given DAILY [facility] Atorvastatin Calcium 40 mg 06/07/20 22:00 06/09/20 21:34 Lipitor - PO 40 mg HS [facility] Administration Benzocaine/Menthol 1 each 06/09/20 16:21 06/09/20 16:46 Cepacol Lozenge - MM 1 each PRN PRN Administration SORE THROAT Cholecalciferol 1,000 unit 06/07/20 10:00 06/10/20 11:36 Vitamin D3 - PO 1,000 unit DAILY [facility] Administration Cyanocobalamin 100 mcg 06/07/20 10:00 06/10/20 11:32 Vitamin B12 - PO 100 mcg DAILY [facility] Administration Sodium Chloride 1,000 mls @ 100 mls/hr 06/10/20 08:00 06/10/20 11:31 Normal Saline - IV 100 mls/hr ASDIR [facility] Administration Potassium Phosphate 15 mm/ 255 mls @ 62.5 mls/hr 06/10/20 13:50 Sodium Chloride IVPB 06/10/20 17:54 ONCE ONE Insulin Aspart 1 vial 06/07/20 07:00 06/10/20 11:54 Novolog Vial Sliding Scale - SQ Not Given ACHS [facility] Protocol Lisinopril 20 mg 06/07/20 10:00 06/10/20 10:50 Prinivil PO Not Given DAILY [facility] Pantoprazole Sodium 40 mg 06/08/20 22:00 06/10/20 11:32 Protonix Iv IVPUSH 40 mg BID [facility] Administration Tramadol HCl 50 mg 06/08/20 19:10 06/08/20 22:17 Ultram - PO 50 mg Q8H PRN Administration PAIN LEVEL 7 - 10 Home Medications Medication Instructions Recorded Aspirin [Aspirin EC] 325 mg PO DAILY 09/18/15 Atenolol [Tenormin] 25 mg PO BID 09/18/15 Lisinopril [Prinivil -] 20 mg PO DAILY 09/18/15 Metformin HCl [Glucophage] 500 mg PO BID 09/18/15 Amlodipine Besylate [Norvasc -] 10 mg PO DAILY 12/27/19 Atorvastatin Calcium [Lipitor] 40 mg PO HS 12/27/19 Ergocalciferol (Vitamin D2) 1,000 unit PO DAILY 12/27/19 [Vitamin D2] Vitamin B12 100 mg PO DAILY 12/27/19 Glimepiride 1 mg PO DAILY 06/07/20 Naproxen 500 mg PO Q12H PRN 06/07/20 ASSESSMENT AND PLAN: 65 year old female with history of HTN, DM 2, CAD s/p Stents 2007, history of multiple episodes of SBO, presents with SBO and found to have NSTEMI. 1. Small Bowel Obstruction, recurrent AXR - pSBO NPO/IV fluids/NGT decompression Surgery following. 2. Acute NSTEMI Likely secondary to demand, TropI max 1.84 Seen by Cardio and started on Heparin drip, eventually stopped due to coffee ground blood loss in NGT. Cardiology following. On Aspirin/Lipitor/BRIGITTE-I. Atenolol stopped due to Bradycardia. 3. Acute Blood Loss anemia sec to coffee ground emesis Gastric Occult Blood + Heparin drip stopped. Given SBO and acute [place], unlikely candidate for EGD. Monitor H/H Protonix BID. Eventual GI work-up. 4. Proteinuria and Hematuria Renal Ultrasound - bilateral renal cortical scarring. Urology out-patient follow-up 5. HTN - Uncontrolled. Continue Norvasc Lisinopril. Atenolol stopped due to Bradycardia. Hydralazine IV PRN while NPO. 6. Hypomagnesemia/Hypophosphatemia - repleted. DVT Px - SCDs. Heparin drip held.
[2020-06-10] MEDS ORDERED: hydrALAZINE HCL 20 MG/ML VIAL IVPB PRN ×2 (14:14→15:00)
[2020-06-10 16:22] LABS: MAGNESIUM 1.9 mg/dL (1.8-2.4); PHOSPHOROUS 2.3 mg/dL (2.5-4.9)
--- NOTE | 2020-06-10 18:21 | PN ---
Physical Exam: SUBJECTIVE: Patient seen and examined at bedside. The patient reports being able to pass gas, but not being able to have a bowel movement. The patent denies fever/chills, abdominal pain, and nausea/vomiting. The patient is currently NPO and with a NG tube; and, the nurses are giving her medications through her NG tube and allowing the medications to be digested by turning off the NG tube for an hour or two after giving the medications. OBJECTIVE: Vital Signs Period Temp Pulse Resp BP Sys/Duff Pulse Ox Last 24 Hr 98.2 F-99.1 F 46-60 16-18 145-194/57-79 99-99 GENERAL: The patient is awake, alert, and fully oriented, in no acute distress. HEAD: Normal with no signs of trauma. EYES: Extraocular movements intact. No ptosis. ENT: Ears normal, nares patent, oropharynx clear without exudates, moist mucous membranes. NECK: Trachea midline, full range of motion, supple. LUNGS: Breath sounds equal, clear to auscultation bilaterally, no wheezes, no crackles, no accessory muscle use. HEART: Regular rate and rhythm, S1, S2 without murmur, rub or gallop. ABDOMEN: Soft, nontender, nondistended, normoactive to hyperactive bowel sounds, no guarding, no rebound, no masses. EXTREMITIES: 2+ pulses, warm, well-perfused, no edema. NEUROLOGICAL: Normal speech, gait not observed. PSYCH: Normal mood, normal affect. SKIN: Warm, dry, normal turgor, no rashes or lesions noted Laboratory Results - last 24 hr 06/10/20 06/10/20 06/10/20 05:52 05:52 05:52 WBC 7.8 RBC 4.38 Hgb 11.7 Hct 36.0 MCV 82.4 MCH 26.7 MCHC 32.4 RDW 13.8 Plt Count 209 MPV 8.3 PTT (Actin FS) 29.8 Sodium 139 Potassium 3.7 Chloride 103 Carbon Dioxide 30 Anion Gap 6 L BUN 8.8 Creatinine 0.8 Est GFR (CKD-EPI)AfAm 88.42 Est GFR (CKD-EPI)NonAf 76.29 POC Glucometer Random Glucose 182 H Calcium 9.0 Phosphorus 2.4 L Magnesium 1.6 L Total Bilirubin 0.6 AST 13 L ALT 13 Alkaline Phosphatase 33 L Total Protein 6.2 L Albumin 3.3 L 06/10/20 06/10/20 06/10/20 11:51 15:05 17:08 WBC RBC Hgb Hct MCV MCH MCHC RDW Plt Count MPV PTT (Actin FS) Sodium Potassium Chloride Carbon Dioxide Anion Gap BUN Creatinine Est GFR (CKD-EPI)AfAm Est GFR (CKD-EPI)NonAf POC Glucometer 142 114 Random Glucose Calcium Phosphorus 2.3 L Magnesium 1.9 Total Bilirubin AST ALT Alkaline Phosphatase Total Protein Albumin Active Medications Generic Name Dose Route Start Last Admin Trade Name Freq PRN Reason Stop Dose Admin Acetaminophen 650 mg 06/07/20 05:14 06/08/20 18:17 Tylenol - PO 650 mg Q4H PRN Administration PAIN LEVEL 4 - 6 Amlodipine Besylate 10 mg 06/07/20 10:00 06/10/20 11:32 Norvasc - PO 10 mg DAILY [facility] Administration Aspirin 81 mg 06/07/20 10:00 06/10/20 09:50 Ecotrin - PO Not Given DAILY [facility] Atorvastatin Calcium 40 mg 06/07/20 22:00 06/09/20 21:34 Lipitor - PO 40 mg HS [facility] Administration Benzocaine/Menthol 1 each 06/09/20 16:21 06/09/20 16:46 Cepacol Lozenge - MM 1 each PRN PRN Administration SORE THROAT Cholecalciferol 1,000 unit 06/07/20 10:00 06/10/20 11:36 Vitamin D3 - PO 1,000 unit DAILY [facility] Administration Cyanocobalamin 100 mcg 06/07/20 10:00 06/10/20 11:32 Vitamin B12 - PO 100 mcg DAILY [facility] Administration Hydralazine HCl 10 mg 06/10/20 15:00 06/10/20 15:33 Apresoline Injection - IVPB 10 mg Q8H PRN Administration HYPERTENSION Sodium Chloride 1,000 mls @ 100 mls/hr 06/10/20 08:00 06/10/20 11:31 Normal Saline - IV 100 mls/hr ASDIR [facility] Administration Insulin Aspart 1 vial 06/07/20 07:00 06/10/20 17:34 Novolog Vial Sliding Scale - SQ Not Given ACHS [facility] Protocol Lisinopril 20 mg 06/07/20 10:00 06/10/20 10:50 Prinivil PO Not Given DAILY [facility] Pantoprazole Sodium 40 mg 06/08/20 22:00 06/10/20 11:32 Protonix Iv IVPUSH 40 mg BID [facility] Administration Tramadol HCl 50 mg 06/08/20 19:10 06/08/20 22:17 Ultram - PO 50 mg Q8H PRN Administration PAIN LEVEL 7 - 10 ASSESSMENT/PLAN: 65 year old female patent with past medical history that includes HTN, DM, CAD s/p stents, and multiple episodes of SBOs who presented to the ED with nausea, vomiting, and abdominal pain. 1. SBO - follow up Abdominal X-ray showed a high grade partial SBO. - NG tube - IV fluids - Current plan, per surgery, is conservative management. 2. Tropenemia secondary to demand ischemia vs NSTEMI - Trop max 1.84 - The patient is taking aspirin, lipitor, and kayla-i. The patient is off Atenolol due to low heart rate. 3. Coffee ground emesis secondary to possible GI bleed - Hgb 11.7 today - monitoring Hgb - Heparin being held - The patient is taking a PPI 4. Proteinuria and Hematuria - Urology outpatient f/u - Renal ultrasound shows bilateral renal cortical scarring 5. HTN - The patient is taking amlodipine and lisinopril and hydralazine - Blood pressure has been rising, but fell after taking hydralazine to 172/79 - Monitoring blood pressure 6. DM - ISS DVT PPx - SCDs. Heparin held due to coffee ground emesis GI PPx - Protonix Dispo - Possible GI consult. Conservative management per surgery. Visit type - Emergency Visit Emergency Visit: Yes ED Registration Date: 06/07/20 Care time: The patient presented to the Emergency Department on the above date and was hospitalized for further evaluation of their emergent condition. - New Patient This patient is new to me today: No - Critical Care Critical Care patient: No - Discharge Referral Referred to [facility] Med [facility] No ATTENDING PHYSICIAN STATEMENT I saw and evaluated the patient. I reviewed the resident's note and discussed the case with the resident. I agree with the resident's findings and plan as documented. SUBJECTIVE: OBJECTIVE: ASSESSMENT AND PLAN:
[2020-06-10] MEDS: ACETAMINOPHEN 325 MG TABLET (FP) PO PRN (19:02)
[2020-06-10] MEDS: traMADol HCL 50 MG TABLET PO PRN (19:03)
[2020-06-10] MEDS: ATORVASTATIN CA 40 MG TABLET (FP) PO SCH (21:38)
[2020-06-11] MEDS: SODIUM CHLORIDE 1,000 ML IV SCH ×3 (06:01→22:30)
[2020-06-11] MEDS: INSULIN SLIDING SCALE (NOVOLOG) 1 VIAL SQ SCH ×4 (06:07→21:48)
[2020-06-11 06:45] LABS: HEMATOCRIT 37.5 % (32.4-45.2); MCH 26.9 pg (25.7-33.7); MEAN PLT VOLUME 8.7 fl (7.5-11.1); PLATELET COUNT 194 K/MM3 (134-434); RBC 4.46 M/mm3 (3.60-5.2); WHITE BLOOD COUNT 9.3 K/mm3 (4.0-10.0)
[2020-06-11 07:01] LABS: BLOOD UREA NITROGEN 7.8 mg/dL (7-18); CALCIUM 9.1 mg/dL (8.5-10.1); CREATININE 0.6 mg/dL (0.55-1.3); MAGNESIUM 1.7 mg/dL (1.8-2.4); POTASSIUM 3.2 mmol/L (3.5-5.1)
[2020-06-11] MEDS ORDERED: MAGNESIUM SULF 50% (8.12 MEQ/2 ML-1 GM VIAL) IVPB ONE ×3 (07:10→13:00)
[2020-06-11] MEDS: KCL 10 MEQ IVPB 10 MEQ/100 ML INFUS.BAG IVPB SCH ×6 (09:34→21:37)
[2020-06-11] MEDS: PANTOPRAZOLE SODIUM 40 MG VIAL IVPUSH SCH ×2 (09:35→21:36)
[2020-06-11] MEDS: amLODIPine BESYLATE 10 MG TABLET (FP) PO SCH (09:36)
[2020-06-11] MEDS: LISINOPRIL 20 MG TABLET (FP) PO SCH (09:36)
[2020-06-11] MEDS ORDERED: PT OWN MED DRAWER 7, Y5N ONE (09:38)
[2020-06-11] MEDS: CYANOCOBALAMIN (VITAMIN B-12) 100 MCG TABLET PO SCH (09:41)
[2020-06-11] MEDS: CHOLECALCIFEROL (VIT D3) 1,000 UNIT (25 MCG) TABLET PO SCH (09:42)
--- NOTE | 2020-06-11 10:57 | PN ---
Progress Note (short form) - Note Progress Note: Pt seen and examined. Doing "okay". NPO with NGT. OOb without issue. Denies cp/sob, n/v/d. Passing flatus. NO BM Vital Signs Temp 99.3 F 06/11/20 09:29 Pulse 57 L 06/11/20 09:29 Resp 18 06/11/20 09:29 BP 170/68 06/11/20 09:29 Pulse Ox 97 06/11/20 09:29 Intake & Output 06/10/20 06/10/20 06/11/20 11:59 23:59 11:59 Intake Total 510 700 Output Total 50 50 Balance 460 650 Intake: IV 410 700 Normal Saline - 1,000 ml 400 700 @ 100 mls/hr IV ASDIR [facility] Rx#:[id number] saline lock 10 IVPB 100 Oral 0 Output: Gastric Drainage 50 50 Other: Voiding Method Toilet Toilet Toilet # Unmeasured Voids Void 2 2 Bowel Movement No CBC, BMP 06/11/20 05:50 06/11/20 05:50 Gen: awake, alert, nad Resp: unlabored on ra Abdo: ngt in place with approx 150ml since yesterday bilious. Abdo minimally ttp diffusely, mildly distended. No rebound or guarding. Hypoactive bowel sounds A/P: 65 y/o F w/ PMHx HTN, DM, herniated disc, sciatica, restless leg syndrome, h erniated disk, exploratory laparatomy, Hx of SBO, who prersented to the ED with nausea, vomiting, and abdominal pain. -axr pending for this am NPO IVF GI PPx DVT PPx Serial abd exams Replete lytes PRN MOnitor/record output q shift Pain management (avoid narcotics) Aggressive mobilization Cont care per primary team Surgery Team to cont following xray reviewed with attending, slightly improved, will likely remove ngt in am d/w attending Dr Vazquez <Isabel Collazo - Last Filed: 06/11/20 16:06> - Note Progress Note: Attending Surgeon: I personally saw and examined the patient. My examination reveals a patient with ongoing SBO. I discussed the case with the surgical PA and agree with their findings and plan of care with any exceptions as noted. ~ Giovanny Vazquez MD, FACS <Giovanny Vazquez - Last Filed: 06/13/20 10:38>
--- NOTE | 2020-06-11 11:44 | PN ---
Progress Note (short form) - Note Progress Note: s: no cp sob palps dizzy Current Medications Generic Name Dose Route Start Last Admin Trade Name Freq PRN Reason Stop Dose Admin Acetaminophen 650 mg 06/07/20 05:14 06/10/20 19:02 Tylenol - PO 650 mg Q4H PRN Administration PAIN LEVEL 4 - 6 Amlodipine Besylate 10 mg 06/07/20 10:00 06/11/20 09:36 Norvasc - PO 10 mg DAILY [facility] Administration Aspirin 81 mg 06/07/20 10:00 06/10/20 09:50 Ecotrin - PO Not Given DAILY [facility] Atorvastatin Calcium 40 mg 06/07/20 22:00 06/10/20 21:38 Lipitor - PO 40 mg HS [facility] Administration Benzocaine/Menthol 1 each 06/09/20 16:21 06/09/20 16:46 Cepacol Lozenge - MM 1 each PRN PRN Administration SORE THROAT Cholecalciferol 1,000 unit 06/07/20 10:00 06/11/20 09:42 Vitamin D3 - PO 1,000 unit DAILY [facility] Administration Cyanocobalamin 100 mcg 06/07/20 10:00 06/11/20 09:41 Vitamin B12 - PO 100 mcg DAILY [facility] Administration Hydralazine HCl 10 mg 06/10/20 15:00 06/10/20 15:33 Apresoline Injection - IVPB 10 mg Q8H PRN Administration HYPERTENSION Sodium Chloride 1,000 mls @ 100 mls/hr 06/10/20 08:00 06/11/20 11:27 Normal Saline - IV Not Given ASDIR [facility] Insulin Aspart 1 vial 06/07/20 07:00 06/11/20 06:07 Novolog Vial Sliding Scale - SQ Not Given ACHS [facility] Protocol Lisinopril 20 mg 06/07/20 10:00 06/11/20 09:36 Prinivil PO 20 mg DAILY [facility] Administration Pantoprazole Sodium 40 mg 06/08/20 22:00 06/11/20 09:35 Protonix Iv IVPUSH 40 mg BID [facility] Administration Tramadol HCl 50 mg 06/08/20 19:10 06/10/20 19:03 Ultram - PO 50 mg Q8H PRN Administration PAIN LEVEL 7 - 10 Vital Signs Period Temp Pulse Resp BP Sys/Duff Pulse Ox Last 24 Hr 98 F-99.8 F 49-60 16-18 144-194/63-79 95-97 nad no jvd rrr s1s2 no mrg cta bl nl eff aao3 no le e/c/c abd nd nt no jaundice diaphoresis tele: sinus malcom ecg: wnl cxr: clear echo 05/2020 mild LVH, nl LV function, E/A reversal, mild AR/MR a/p: 65 f hx htn, dm, cad s/p pci 2007 (after +stress test, no PR), exlap for prior sbo, here with abd pain, vomiting. cad s/p remote pci, now with +trops/nstemi: -pt has no cardiac sxs but trop mildly elevated, peaked at 1.8. ECG unremarkable. Possible demand ischemia from acute issues but given cad hx possibly nstemi as well. Started hep gtt 06/07 but then had coffee ground fluids in ngt so hep gtt stopped. Cont statin, bb, kayla. -cont tele -will need ischemic eval, most likely with nuclear stress test, when acute issues resolved htn: - dc'd atenolol for bradycardia in the 40s - cont current meds, PRN IV hydralazine given she has NGT to LWS and may not have adequate absorption of PO meds hld: -cont statin sbo: -surgery following, attempting conservative management for now
[2020-06-11 13:38] LABS: MAGNESIUM 1.5 mg/dL (1.8-2.4); POTASSIUM 3.2 mmol/L (3.5-5.1)
--- NOTE | 2020-06-11 13:39 | PN ---
Teaching Attending Note Name of Resident: Rudy Antonio ATTENDING PHYSICIAN STATEMENT I saw and evaluated the patient. I reviewed the resident's note and discussed the case with the resident. I agree with the resident's findings and plan as documented. SUBJECTIVE: Abdominal discomfort much improved. NG tube draining bilious material. No fever/chills. OBJECTIVE: Afebrile, Hemodnamically Stable. Last Vital Signs Temp Pulse Resp BP Pulse Ox 99.0 F 61 16 151/67 97 06/11/20 13:27 06/11/20 13:27 06/11/20 13:27 06/11/20 13:27 06/11/20 09:29 HEENT - Atraumatic, Normocephalic. NGT to low intermittent suction. Heart - S1, S2, RRR Lungs - clear to auscultation Abdomen - Soft, non-tender. Bowel Sounds +. Extremities - no edema, no calf tenderness. Neuro - AAO x 3. Tone/Power normal all extremities. Laboratory Results - last 24 hr 06/10/20 06/10/20 06/10/20 15:05 17:08 21:44 WBC RBC Hgb Hct MCV MCH MCHC RDW Plt Count MPV PTT (Actin FS) Sodium Potassium Chloride Carbon Dioxide Anion Gap BUN Creatinine Est GFR (CKD-EPI)AfAm Est GFR (CKD-EPI)NonAf POC Glucometer 114 112 Random Glucose Calcium Phosphorus 2.3 L Magnesium 1.9 06/11/20 06/11/20 06/11/20 05:50 05:50 05:50 WBC 9.3 RBC 4.46 Hgb 12.0 Hct 37.5 MCV 84.0 MCH 26.9 MCHC 32.0 RDW 14.0 Plt Count 194 MPV 8.7 PTT (Actin FS) Cancelled Sodium 139 Potassium 3.2 L Chloride 103 Carbon Dioxide 26 Anion Gap 10 BUN 7.8 Creatinine 0.6 Est GFR (CKD-EPI)AfAm 109.31 Est GFR (CKD-EPI)NonAf 94.32 POC Glucometer Random Glucose 133 H Calcium 9.1 Phosphorus 3.0 Magnesium 1.7 L 06/11/20 06/11/20 06:03 07:28 WBC RBC Hgb Hct MCV MCH MCHC RDW Plt Count MPV PTT (Actin FS) 28.9 Sodium Potassium Chloride Carbon Dioxide Anion Gap BUN Creatinine Est GFR (CKD-EPI)AfAm Est GFR (CKD-EPI)NonAf POC Glucometer 126 Random Glucose Calcium Phosphorus Magnesium Current Medications Generic Name Dose Route Start Last Admin Trade Name Freq PRN Reason Stop Dose Admin Acetaminophen 650 mg 06/07/20 05:14 06/10/20 19:02 Tylenol - PO 650 mg Q4H PRN Administration PAIN LEVEL 4 - 6 Amlodipine Besylate 10 mg 06/07/20 10:00 06/11/20 09:36 Norvasc - PO 10 mg DAILY [facility] Administration Aspirin 81 mg 06/07/20 10:00 06/10/20 09:50 Ecotrin - PO Not Given DAILY [facility] Atorvastatin Calcium 40 mg 06/07/20 22:00 06/10/20 21:38 Lipitor - PO 40 mg HS [facility] Administration Benzocaine/Menthol 1 each 06/09/20 16:21 06/09/20 16:46 Cepacol Lozenge - MM 1 each PRN PRN Administration SORE THROAT Cholecalciferol 1,000 unit 06/07/20 10:00 06/11/20 09:42 Vitamin D3 - PO 1,000 unit DAILY [facility] Administration Cyanocobalamin 100 mcg 06/07/20 10:00 06/11/20 09:41 Vitamin B12 - PO 100 mcg DAILY [facility] Administration Hydralazine HCl 10 mg 06/10/20 15:00 06/10/20 15:33 Apresoline Injection - IVPB 10 mg Q8H PRN Administration HYPERTENSION Sodium Chloride 1,000 mls @ 100 mls/hr 06/10/20 08:00 06/11/20 11:27 Normal Saline - IV Not Given ASDIR [facility] Insulin Aspart 1 vial 06/07/20 07:00 06/11/20 12:05 Novolog Vial Sliding Scale - SQ Not Given ACHS [facility] Protocol Lisinopril 20 mg 06/07/20 10:00 06/11/20 09:36 Prinivil PO 20 mg DAILY [facility] Administration Pantoprazole Sodium 40 mg 06/08/20 22:00 06/11/20 09:35 Protonix Iv IVPUSH 40 mg BID [facility] Administration Tramadol HCl 50 mg 06/08/20 19:10 06/10/20 19:03 Ultram - PO 50 mg Q8H PRN Administration PAIN LEVEL 7 - 10 Home Medications Medication Instructions Recorded Aspirin [Aspirin EC] 325 mg PO DAILY 09/18/15 Atenolol [Tenormin] 25 mg PO BID 09/18/15 Lisinopril [Prinivil -] 20 mg PO DAILY 09/18/15 Metformin HCl [Glucophage] 500 mg PO BID 09/18/15 Amlodipine Besylate [Norvasc -] 10 mg PO DAILY 12/27/19 Atorvastatin Calcium [Lipitor] 40 mg PO HS 12/27/19 Ergocalciferol (Vitamin D2) 1,000 unit PO DAILY 12/27/19 [Vitamin D2] Vitamin B12 100 mg PO DAILY 12/27/19 Glimepiride 1 mg PO DAILY 06/07/20 Naproxen 500 mg PO Q12H PRN 06/07/20 ASSESSMENT AND PLAN: 65 year old female with history of HTN, DM 2, CAD s/p Stents 2007, history of multiple episodes of SBO, presents with SBO and found to have acute NSTEMI. 1. Small Bowel Obstruction, recurrent AXR - pSBO Continue NPO/IV fluids/NGT decompression Surgery following. 2. Acute NSTEMI Likely secondary to demand, TropI max 1.84 Seen by Cardio and started on Heparin drip, eventually stopped due to coffee ground blood loss in NGT. Cardiology following. On Lipitor/BRIGITTE-I. Atenolol stopped due to Bradycardia. Ischemic work-up after resolution of current acute illness as per Cardio. 3. Acute Blood Loss anemia sec to coffee ground emesis Gastric Occult Blood + Heparin drip stopped. Given SBO and acute [place], unlikely candidate for EGD. H/H stable - monitor. Protonix BID. Eventual GI work-up. 4. Proteinuria and Hematuria Renal Ultrasound - bilateral renal cortical scarring. Urology out-patient follow-up 5. HTN - Continue Norvasc, Lisinopril. Atenolol stopped due to Bradycardia. Hydralazine IV PRN while NPO. 6. Hypomagnesemia/Hypophosphatemia - recurrent, will replete. 7. DM 2 - Glimepiride held. Maintain on Novolog sliding scale. DVT Px - SCDs. Heparin drip held.
[2020-06-11] MEDS ORDERED: MAGNESIUM 2GM/50ML STERILE WATER IVPB IVPB ONE (16:24)
--- NOTE | 2020-06-11 18:24 | PN ---
Physical Exam: SUBJECTIVE: Patient seen and examined at bedside. The patent denies fever/chills, abdominal pain, and nausea/vomiting. The container for her NG tube still shows coffee ground substance in the NG tube secretions. OBJECTIVE: Vital Signs Period Temp Pulse Resp BP Sys/Duff Pulse Ox Last 24 Hr 98 F-99.3 F 53-61 16-18 151-170/63-70 95-97 GENERAL: The patient is awake, alert, and fully oriented, in no acute distress. HEAD: Normal with no signs of trauma. EYES: Extraocular movements intact. No ptosis. ENT: Ears normal, nares patent, oropharynx clear without exudates, moist mucous membranes. NECK: Trachea midline, full range of motion, supple. LUNGS: Breath sounds equal, clear to auscultation bilaterally, no wheezes, no crackles, no accessory muscle use. HEART: Regular rate and rhythm, S1, S2 without murmur, rub or gallop. ABDOMEN: Soft, nontender, nondistended, normoactive bowel sounds, no guarding, no rebound, no masses. EXTREMITIES: 2+ pulses, warm, well-perfused, no edema. NEUROLOGICAL: Normal speech, gait not observed. PSYCH: Normal mood, normal affect. SKIN: Warm, dry, normal turgor, no rashes or lesions noted Laboratory Results - last 24 hr 06/10/20 06/11/20 06/11/20 21:44 05:50 05:50 WBC 9.3 RBC 4.46 Hgb 12.0 Hct 37.5 MCV 84.0 MCH 26.9 MCHC 32.0 RDW 14.0 Plt Count 194 MPV 8.7 PTT (Actin FS) Cancelled Sodium Potassium Chloride Carbon Dioxide Anion Gap BUN Creatinine Est GFR (CKD-EPI)AfAm Est GFR (CKD-EPI)NonAf POC Glucometer 112 Random Glucose Calcium Phosphorus Magnesium 06/11/20 06/11/20 06/11/20 05:50 06:03 07:28 WBC RBC Hgb Hct MCV MCH MCHC RDW Plt Count MPV PTT (Actin FS) 28.9 Sodium 139 Potassium 3.2 L Chloride 103 Carbon Dioxide 26 Anion Gap 10 BUN 7.8 Creatinine 0.6 Est GFR (CKD-EPI)AfAm 109.31 Est GFR (CKD-EPI)NonAf 94.32 POC Glucometer 126 Random Glucose 133 H Calcium 9.1 Phosphorus 3.0 Magnesium 1.7 L 06/11/20 12:59 WBC RBC Hgb Hct MCV MCH MCHC RDW Plt Count MPV PTT (Actin FS) Sodium Potassium 3.2 L Chloride Carbon Dioxide Anion Gap BUN Creatinine Est GFR (CKD-EPI)AfAm Est GFR (CKD-EPI)NonAf POC Glucometer Random Glucose Calcium Phosphorus Magnesium 1.5 L Active Medications Generic Name Dose Route Start Last Admin Trade Name Freq PRN Reason Stop Dose Admin Acetaminophen 650 mg 06/07/20 05:14 06/10/20 19:02 Tylenol - PO 650 mg Q4H PRN Administration PAIN LEVEL 4 - 6 Amlodipine Besylate 10 mg 06/07/20 10:00 06/11/20 09:36 Norvasc - PO 10 mg DAILY [facility] Administration Aspirin 81 mg 06/07/20 10:00 06/10/20 09:50 Ecotrin - PO Not Given DAILY [facility] Atorvastatin Calcium 40 mg 06/07/20 22:00 06/10/20 21:38 Lipitor - PO 40 mg HS [facility] Administration Benzocaine/Menthol 1 each 06/09/20 16:21 06/09/20 16:46 Cepacol Lozenge - MM 1 each PRN PRN Administration SORE THROAT Cholecalciferol 1,000 unit 06/07/20 10:00 06/11/20 09:42 Vitamin D3 - PO 1,000 unit DAILY [facility] Administration Cyanocobalamin 100 mcg 06/07/20 10:00 06/11/20 09:41 Vitamin B12 - PO 100 mcg DAILY [facility] Administration Hydralazine HCl 10 mg 06/10/20 15:00 06/10/20 15:33 Apresoline Injection - IVPB 10 mg Q8H PRN Administration HYPERTENSION Sodium Chloride 1,000 mls @ 100 mls/hr 06/10/20 08:00 06/11/20 11:27 Normal Saline - IV Not Given ASDIR [facility] Potassium Chloride 10 meq in 100 mls @ 100 mls/hr 06/11/20 17:30 Potassium Chloride 10 Meq Premix Ivpb - IVPB 06/11/20 20:29 Q60M [facility] Insulin Aspart 1 vial 06/07/20 07:00 06/11/20 17:11 Novolog Vial Sliding Scale - SQ Not Given ACHS [facility] Protocol Lisinopril 20 mg 06/07/20 10:00 06/11/20 09:36 Prinivil PO 20 mg DAILY [facility] Administration Pantoprazole Sodium 40 mg 06/08/20 22:00 06/11/20 09:35 Protonix Iv IVPUSH 40 mg BID [facility] Administration Tramadol HCl 50 mg 06/08/20 19:10 06/10/20 19:03 Ultram - PO 50 mg Q8H PRN Administration PAIN LEVEL 7 - 10 ASSESSMENT/PLAN: 65 year old female patent with past medical history that includes HTN, DM, CAD s/p stents, and multiple episodes of SBOs who presented to the ED with nausea, vomiting, and abdominal pain. 1. SBO - NG tube - IV fluids - Repeat Abdominal X-ray shows possible improvement of SBO. - Continuing conservative management. 2. Tropenemia likely secondary to demand ischemia - Trop max 1.84 - Cardio following with plan for ischemia workup after resolution of SBO - The patient is taking aspirin, lipitor, and kayla-i. The patient is off Atenolol due to low heart rate. 3. Coffee ground emesis secondary to possible GI bleed - Hgb 12.0 today - monitoring Hgb - Heparin being held - The patient is taking a PPI - plan for GI workup eventually after SBO resolves 4. Proteinuria and Hematuria - Urology outpatient f/u - Renal ultrasound shows bilateral renal cortical scarring 5. HTN - The patient is taking amlodipine and lisinopril and hydralazine - Blood pressure has been better controlled with the Hydralazine. Most recent blood pressure is 151/67. - Monitoring blood pressure 6. DM - ISS DVT PPx - SCDs. Heparin held due to coffee ground emesis GI PPx - Protonix Dispo - Conservative management continuing per surgery. Visit type - Emergency Visit Emergency Visit: Yes ED Registration Date: 06/07/20 Care time: The patient presented to the Emergency Department on the above date and was hospitalized for further evaluation of their emergent condition. - New Patient This patient is new to me today: No - Critical Care Critical Care patient: No - Discharge Referral Referred to [facility] Med P.C.: No ATTENDING PHYSICIAN STATEMENT I saw and evaluated the patient. I reviewed the resident's note and discussed the case with the resident. I agree with the resident's findings and plan as documented. SUBJECTIVE: OBJECTIVE: ASSESSMENT AND PLAN:
[2020-06-11] MEDS: ATORVASTATIN CA 40 MG TABLET (FP) PO SCH (21:36)
[2020-06-12] MEDS: KCL 10 MEQ IVPB 10 MEQ/100 ML INFUS.BAG IVPB SCH ×2 (00:12→02:09)
[2020-06-12] MEDS: INSULIN SLIDING SCALE (NOVOLOG) 1 VIAL SQ SCH ×4 (06:10→21:10)
[2020-06-12 07:29] LABS: HEMATOCRIT 34.2 % (32.4-45.2); MCH 26.5 pg (25.7-33.7); MCHC 32.2 g/dl (32.0-36.0); MEAN CELL VOLUME 82.3 fl (80-96); MEAN PLT VOLUME 8.5 fl (7.5-11.1); PLATELET COUNT 212 K/MM3 (134-434); RBC 4.16 M/mm3 (3.60-5.2); RDW 13.8 % (11.6-15.6); WHITE BLOOD COUNT 8.8 K/mm3 (4.0-10.0)
[2020-06-12 07:56] LABS: BLOOD UREA NITROGEN 8.9 mg/dL (7-18); CALCIUM 9.2 mg/dL (8.5-10.1); CREATININE 0.7 mg/dL (0.55-1.3); PHOSPHOROUS 2.6 mg/dL (2.5-4.9); POTASSIUM 3.6 mmol/L (3.5-5.1)
--- NOTE | 2020-06-12 08:23 | PN ---
Progress Note (short form) - Note Progress Note: Pt seen and examined. Reports she had a "tough night" due to discomfort with NGT and throat dryness. Has been OOb without issue. Denies cp/sob, n/v/d. Passing flatus. NO BM yet Vital Signs Temp 98.8 F 06/12/20 05:00 Pulse 71 06/12/20 05:00 Resp 18 06/12/20 05:00 BP 154/65 06/12/20 05:00 Pulse Ox 98 06/11/20 21:00 Intake & Output 06/11/20 06/11/20 06/12/20 11:59 23:59 11:59 Intake Total 312 674 7517 Output Total 50 25 30 Balance 825 407 8090 Intake: IV 656 640 4753 LH #24 06/11 500 Normal Saline - 1,000 ml 700 1200 @ 100 mls/hr IV ASDIR [facility] Rx#:[id number] IVPB 400 300 Oral 0 Output: Gastric Drainage 50 25 30 Other: Voiding Method Toilet Toilet # Unmeasured Voids Void 2 1 3 Bowel Movement No CBC, BMP 06/12/20 06:45 06/12/20 06:45 Gen: awake, alert, nad Resp: unlabored on ra Abdo: ngt in place with approx 25ml since yesterday bilious. Abdo minimally ttp diffusely, mildly distended. No rebound or guarding. Hypoactive bowel sounds A/P: 65 y/o F w/ PMHx HTN, DM, herniated disc, sciatica, restless leg syndrome, herniated disk, exploratory laparatomy, Hx of SBO, who prersented to the ED with nausea, vomiting, and abdominal pain, found to have sbo. -axr pending for this am, slightly improved NGT pulled this AM clears for dinner IVF GI PPx DVT PPx Serial abd exams Replete lytes PRN MOnitor/record output q shift Pain management (avoid narcotics) Aggressive mobilization Cont care per primary team Surgery Team to cont following d/w attending Dr Vazquez <Isabel Collazo - Last Filed: 06/12/20 14:39> - Note Progress Note: Attending Surgeon: I personally saw and examined the patient. My examination reveals a patient with ongoing SBO. I discussed the case with the surgical PA and agree with their findings and plan of care with any exceptions as noted. ~ Giovanny Vazquez MD, FACS <Giovanny Vazquez - Last Filed: 06/13/20 10:37>
[2020-06-12] MEDS ORDERED: PT OWN MED DRAWER 7, Y5N ONE (09:37)
[2020-06-12] MEDS: CHOLECALCIFEROL (VIT D3) 1,000 UNIT (25 MCG) TABLET PO SCH (10:01)
[2020-06-12] MEDS: LISINOPRIL 20 MG TABLET (FP) PO SCH (10:01)
[2020-06-12] MEDS: SODIUM CHLORIDE 1,000 ML IV SCH ×2 (10:02→21:10)
[2020-06-12] MEDS: PANTOPRAZOLE SODIUM 40 MG VIAL IVPUSH SCH ×2 (10:02→21:08)
[2020-06-12] MEDS: amLODIPine BESYLATE 10 MG TABLET (FP) PO SCH (10:02)
[2020-06-12] MEDS: CYANOCOBALAMIN (VITAMIN B-12) 100 MCG TABLET PO SCH (10:02)
--- NOTE | 2020-06-12 10:44 | PN ---
Progress Note (short form) - Note Progress Note: s: no cp sob palps dizzy Current Medications Generic Name Dose Route Start Last Admin Trade Name Freq PRN Reason Stop Dose Admin Acetaminophen 650 mg 06/07/20 05:14 06/10/20 19:02 Tylenol - PO 650 mg Q4H PRN Administration PAIN LEVEL 4 - 6 Amlodipine Besylate 10 mg 06/07/20 10:00 06/12/20 10:02 Norvasc - PO 10 mg DAILY [facility] Administration Aspirin 81 mg 06/07/20 10:00 06/10/20 09:50 Ecotrin - PO Not Given DAILY [facility] Atorvastatin Calcium 40 mg 06/07/20 22:00 06/11/20 21:36 Lipitor - PO 40 mg HS [facility] Administration Benzocaine/Menthol 1 each 06/09/20 16:21 06/09/20 16:46 Cepacol Lozenge - MM 1 each PRN PRN Administration SORE THROAT Cholecalciferol 1,000 unit 06/07/20 10:00 06/12/20 10:01 Vitamin D3 - PO 1,000 unit DAILY [facility] Administration Cyanocobalamin 100 mcg 06/07/20 10:00 06/12/20 10:02 Vitamin B12 - PO 100 mcg DAILY [facility] Administration Hydralazine HCl 10 mg 06/10/20 15:00 06/10/20 15:33 Apresoline Injection - IVPB 10 mg Q8H PRN Administration HYPERTENSION Sodium Chloride 1,000 mls @ 100 mls/hr 06/10/20 08:00 06/12/20 10:02 Normal Saline - IV 100 mls/hr ASDIR [facility] Administration Insulin Aspart 1 vial 06/07/20 07:00 06/12/20 06:10 Novolog Vial Sliding Scale - SQ Not Given ACHS [facility] Protocol Lisinopril 20 mg 06/07/20 10:00 06/12/20 10:01 Prinivil PO 20 mg DAILY [facility] Administration Pantoprazole Sodium 40 mg 06/08/20 22:00 06/12/20 10:02 Protonix Iv IVPUSH 40 mg BID [facility] Administration Vital Signs Period Temp Pulse Resp BP Sys/Duff Pulse Ox Last 24 Hr 97.7 F-99.4 F 59-71 16-18 139-159/61-70 98-100 nad no jvd rrr s1s2 no mrg cta bl nl eff aao3 no le e/c/c abd nd nt no jaundice diaphoresis CBC, BMP 06/12/20 06:45 06/12/20 06:45 tele: sr ecg: wnl cxr: clear a/p: 65 f hx htn, dm, cad s/p pci 2007 (after +stress test, no AK), exlap for prior sbo, here with abd pain, vomiting. cad s/p remote pci, now with +trops/nstemi: -pt has no cardiac sxs but trop mildly elevated, peaked at 1.8. ECG unremarkable. Possible demand ischemia from acute issues but given cad hx po ssibly nstemi as well. Started hep gtt 06/07 but then had coffee ground fluids in ngt so hep gtt stopped. Cont statin, bb, kayla. -cont tele -will need ischemic eval, most likely with nuclear stress test, when acute issues resolved htn: - dc'd atenolol for bradycardia in the 40s - cont current meds hld: -cont statin sbo: -surgery following, attempting conservative management for now, has been improving
--- NOTE | 2020-06-12 12:09 | PN ---
Teaching Attending Note Name of Resident: Rudy Antonio ATTENDING PHYSICIAN STATEMENT I saw and evaluated the patient. I reviewed the resident's note and discussed the case with the resident. I agree with the resident's findings and plan as documented. SUBJECTIVE: Abdominal discomfort much improved. NG tube removed this AM. No further nausea/vomiting. No fever/chills. OBJECTIVE: Afebrile, Hemodnamically Stable. Comfortable. Last Vital Signs Temp Pulse Resp BP Pulse Ox 98.8 F 67 18 159/68 100 06/12/20 09:59 06/12/20 09:59 06/12/20 09:59 06/12/20 09:59 06/12/20 09:59 HEENT - Atraumatic, Normocephalic. Heart - S1, S2, RRR Lungs - clear to auscultation Abdomen - Soft, non-tender. Bowel Sounds +. Extremities - no edema, no calf tenderness. Neuro - AAO x 3. Tone/Power normal all extremities. Laboratory Results - last 24 hr 06/11/20 06/11/20 06/12/20 12:59 21:46 06:45 WBC 8.8 RBC 4.16 Hgb 11.0 Hct 34.2 MCV 82.3 MCH 26.5 MCHC 32.2 RDW 13.8 Plt Count 212 MPV 8.5 PTT (Actin FS) Sodium Potassium 3.2 L Chloride Carbon Dioxide Anion Gap BUN Creatinine Est GFR (CKD-EPI)AfAm Est GFR (CKD-EPI)NonAf POC Glucometer 96 Random Glucose Calcium Phosphorus Magnesium 1.5 L 06/12/20 06/12/20 06:45 06:45 WBC RBC Hgb Hct MCV MCH MCHC RDW Plt Count MPV PTT (Actin FS) 30.8 Sodium 141 Potassium 3.6 Chloride 107 Carbon Dioxide 21 Anion Gap 13 BUN 8.9 Creatinine 0.7 Est GFR (CKD-EPI)AfAm 103.91 Est GFR (CKD-EPI)NonAf 89.65 POC Glucometer Random Glucose 103 Calcium 9.2 Phosphorus 2.6 Magnesium 2.0 Current Medications Generic Name Dose Route Start Last Admin Trade Name Freq PRN Reason Stop Dose Admin Acetaminophen 650 mg 06/07/20 05:14 06/10/20 19:02 Tylenol - PO 650 mg Q4H PRN Administration PAIN LEVEL 4 - 6 Amlodipine Besylate 10 mg 06/07/20 10:00 06/12/20 10:02 Norvasc - PO 10 mg DAILY [facility] Administration Aspirin 81 mg 06/07/20 10:00 06/10/20 09:50 Ecotrin - PO Not Given DAILY [facility] Atorvastatin Calcium 40 mg 06/07/20 22:00 06/11/20 21:36 Lipitor - PO 40 mg HS [facility] Administration Benzocaine/Menthol 1 each 06/09/20 16:21 06/09/20 16:46 Cepacol Lozenge - MM 1 each PRN PRN Administration SORE THROAT Cholecalciferol 1,000 unit 06/07/20 10:00 06/12/20 10:01 Vitamin D3 - PO 1,000 unit DAILY [facility] Administration Cyanocobalamin 100 mcg 06/07/20 10:00 06/12/20 10:02 Vitamin B12 - PO 100 mcg DAILY [facility] Administration Hydralazine HCl 10 mg 06/10/20 15:00 06/10/20 15:33 Apresoline Injection - IVPB 10 mg Q8H PRN Administration HYPERTENSION Sodium Chloride 1,000 mls @ 100 mls/hr 06/10/20 08:00 06/12/20 10:02 Normal Saline - IV 100 mls/hr ASDIR [facility] Administration Insulin Aspart 1 vial 06/07/20 07:00 06/12/20 11:49 Novolog Vial Sliding Scale - SQ Not Given ACHS [facility] Protocol Lisinopril 20 mg 06/07/20 10:00 06/12/20 10:01 Prinivil PO 20 mg DAILY [facility] Administration Pantoprazole Sodium 40 mg 06/08/20 22:00 06/12/20 10:02 Protonix Iv IVPUSH 40 mg BID [facility] Administration Home Medications Medication Instructions Recorded Aspirin [Aspirin EC] 325 mg PO DAILY 09/18/15 Atenolol [Tenormin] 25 mg PO BID 09/18/15 Lisinopril [Prinivil -] 20 mg PO DAILY 09/18/15 Metformin HCl [Glucophage] 500 mg PO BID 09/18/15 Amlodipine Besylate [Norvasc -] 10 mg PO DAILY 12/27/19 Atorvastatin Calcium [Lipitor] 40 mg PO HS 12/27/19 Ergocalciferol (Vitamin D2) 1,000 unit PO DAILY 12/27/19 [Vitamin D2] Vitamin B12 100 mg PO DAILY 12/27/19 Glimepiride 1 mg PO DAILY 06/07/20 Naproxen 500 mg PO Q12H PRN 06/07/20 ASSESSMENT AND PLAN: 65 year old female with history of HTN, DM 2, CAD s/p Stents 2007, history of multiple episodes of SBO, presents with SBO and found to have acute NSTEMI. 1. Small Bowel Obstruction, recurrent AXR - pSBO NGT removed. Continue NPO/IV fluids as per Sx Surgery following. Advancement of diet as per Surgery. 2. Acute NSTEMI Likely secondary to demand, TropI max 1.84 Seen by Cardio and started on Heparin drip, eventually stopped due to coffee ground blood loss in NGT. Cardiology following. On Lipitor/BRIGITTE-I. Atenolol stopped due to Bradycardia. Ischemic work-up after resolution of current acute illness as per Cardio. 3. Acute Blood Loss anemia sec to coffee ground emesis Gastric Occult Blood + Heparin drip stopped. Given SBO and acute ME, unlikely candidate for EGD currently. H/H stable - monitor. Protonix BID. Eventual GI work-up. 4. Proteinuria and Hematuria Renal Ultrasound - bilateral renal cortical scarring. Urology out-patient follow-up 5. HTN - Continue Norvasc, Lisinopril. Atenolol stopped due to Bradycardia. Hydralazine IV PRN while NPO. 6. Hypomagnesemia/Hypophosphatemia - repleted. 7. DM 2 - Glimepiride held. Maintain on Novolog sliding scale. DVT Px - SCDs. Heparin drip held.
[2020-06-12] MEDS: BENZOCAINE/MENTH/CETYLPYRD CL 1 EACH LOZENGE MM PRN (13:43)
--- NOTE | 2020-06-12 16:25 | PN ---
Physical Exam: SUBJECTIVE: Patient seen and examined at bedside in the morning. The patient's NG tube removed about 25 mL of gastric fluid overnight. The surgery team removed the NG tube today after reviewing the results of the repeat abdominal x-ray. The patient reports not yet having a bowel movement, but being able to pass gas. The patient denied fever/chills, nausea/vomiting, shortness of breath, and chest pain. OBJECTIVE: Vital Signs Period Temp Pulse Resp BP Sys/Duff Pulse Ox Last 24 Hr 97.7 F-99.4 F 59-71 16-18 139-159/61-70 98-100 GENERAL: The patient is awake, alert, and fully oriented, in no acute distress. HEAD: Normal with no signs of trauma. EYES: Extraocular movements intact. No ptosis. ENT: Ears normal, nares patent, oropharynx clear without exudates, moist mucous membranes. NECK: Trachea midline, full range of motion, supple. LUNGS: Breath sounds equal, clear to auscultation bilaterally, no wheezes, no crackles, no accessory muscle use. HEART: Regular rate and rhythm, S1, S2 without murmur, rub or gallop. ABDOMEN: Soft, nontender, distended, hypoactive bowel sounds, no guarding, no rebound, no masses. EXTREMITIES: 2+ pulses, warm, well-perfused, no edema. NEUROLOGICAL: Normal speech, gait not observed. PSYCH: Normal mood, normal affect. SKIN: Warm, dry, normal turgor, no rashes or lesions noted Laboratory Results - last 24 hr 06/11/20 06/12/20 06/12/20 21:46 06:45 06:45 WBC 8.8 RBC 4.16 Hgb 11.0 Hct 34.2 MCV 82.3 MCH 26.5 MCHC 32.2 RDW 13.8 Plt Count 212 MPV 8.5 PTT (Actin FS) 30.8 Sodium Potassium Chloride Carbon Dioxide Anion Gap BUN Creatinine Est GFR (CKD-EPI)AfAm Est GFR (CKD-EPI)NonAf POC Glucometer 96 Random Glucose Calcium Phosphorus Magnesium 06/12/20 06:45 WBC RBC Hgb Hct MCV MCH MCHC RDW Plt Count MPV PTT (Actin FS) Sodium 141 Potassium 3.6 Chloride 107 Carbon Dioxide 21 Anion Gap 13 BUN 8.9 Creatinine 0.7 Est GFR (CKD-EPI)AfAm 103.91 Est GFR (CKD-EPI)NonAf 89.65 POC Glucometer Random Glucose 103 Calcium 9.2 Phosphorus 2.6 Magnesium 2.0 Active Medications Generic Name Dose Route Start Last Admin Trade Name Freq PRN Reason Stop Dose Admin Acetaminophen 650 mg 06/07/20 05:14 06/10/20 19:02 Tylenol - PO 650 mg Q4H PRN Administration PAIN LEVEL 4 - 6 Amlodipine Besylate 10 mg 06/07/20 10:00 06/12/20 10:02 Norvasc - PO 10 mg DAILY [facility] Administration Aspirin 81 mg 06/07/20 10:00 06/10/20 09:50 Ecotrin - PO Not Given DAILY [facility] Atorvastatin Calcium 40 mg 06/07/20 22:00 06/11/20 21:36 Lipitor - PO 40 mg HS [facility] Administration Benzocaine/Menthol 1 each 06/09/20 16:21 06/12/20 13:43 Cepacol Lozenge - MM 1 each PRN PRN Administration SORE THROAT Cholecalciferol 1,000 unit 06/07/20 10:00 06/12/20 10:01 Vitamin D3 - PO 1,000 unit DAILY [facility] Administration Cyanocobalamin 100 mcg 06/07/20 10:00 06/12/20 10:02 Vitamin B12 - PO 100 mcg DAILY [facility] Administration Hydralazine HCl 10 mg 06/10/20 15:00 06/10/20 15:33 Apresoline Injection - IVPB 10 mg Q8H PRN Administration HYPERTENSION Sodium Chloride 1,000 mls @ 100 mls/hr 06/10/20 08:00 06/12/20 10:02 Normal Saline - IV 100 mls/hr ASDIR [facility] Administration Insulin Aspart 1 vial 06/07/20 07:00 06/12/20 11:49 Novolog Vial Sliding Scale - SQ Not Given ACHS [facility] Protocol Lisinopril 20 mg 06/07/20 10:00 06/12/20 10:01 Prinivil PO 20 mg DAILY [facility] Administration Pantoprazole Sodium 40 mg 06/08/20 22:00 06/12/20 10:02 Protonix Iv IVPUSH 40 mg BID [facility] Administration ASSESSMENT/PLAN: 65 year old female patent with past medical history that includes HTN, DM, CAD s/p stents, and multiple episodes of SBOs who presented to the ED with nausea, vomiting, and abdominal pain. 1. SBO - Abdominal x-ray today shows "no sign of an obstruction" with "an improvement in bowel appearance" since prior x-rays. - NG tube removed today - Diet advanced per Surgery team - IV fluids - Continuing conservative management. 2. Tropenemia likely secondary to demand ischemia - Trop max 1.84 - Cardio following with plan for ischemia workup after resolution of SBO - The patient is taking aspirin, lipitor, and kayla-i. The patient is off Atenolol due to low heart rate. 3. Coffee ground emesis secondary to possible GI bleed - Hgb 11.0 today - monitoring Hgb - Heparin being held - The patient is taking a PPI - plan for GI workup eventually after SBO resolves 4. Proteinuria and Hematuria - Renal ultrasound shows bilateral renal cortical scarring - Urology outpatient f/u 5. HTN - The patient is taking amlodipine and lisinopril and hydralazine - Blood pressure has been better controlled with the Hydralazine. Most recent blood pressure is 146/67. - Monitoring blood pressure 6. DM - ISS 7. Hypomagnesemia/Hypophosphatemia - Monitoring levels - Repleted #FEN - IV fluids. Monitoring electrolytes. Clear liquid diet. DVT PPx - SCDs. Heparin held due to coffee ground emesis GI PPx - Protonix Dispo - Conservative management Visit type - Emergency Visit Emergency Visit: Yes ED Registration Date: 06/07/20 Care time: The patient presented to the Emergency Department on the above date and was hospitalized for further evaluation of their emergent condition. - New Patient This patient is new to me today: No - Critical Care Critical Care patient: No - Discharge Referral Referred to [facility] Med P.C.: No ATTENDING PHYSICIAN STATEMENT I saw and evaluated the patient. I reviewed the resident's note and discussed the case with the resident. I agree with the resident's findings and plan as documented. SUBJECTIVE: OBJECTIVE: ASSESSMENT AND PLAN:
[2020-06-12] MEDS: ATORVASTATIN CA 40 MG TABLET (FP) PO SCH (21:08)
--- NOTE | 2020-06-13 06:21 | PN ---
Progress Note, Physician Chief Complaint: denies CP/SOB/palps TELE: NSR, APCS History of Present Illness: GIB suspected Asympt elevated TnI HTN Non smoker - Current Medication List Current Medications: Active Medications Acetaminophen (Tylenol -) 650 mg PO Q4H PRN PRN Reason: PAIN LEVEL 4 - 6 Last Admin: 06/10/20 19:02 Dose: 650 mg Documented by: Amlodipine Besylate (Norvasc -) 10 mg PO DAILY [facility] Last Admin: 06/12/20 10:02 Dose: 10 mg Documented by: Aspirin (Ecotrin -) 81 mg PO DAILY [facility] Last Admin: 06/10/20 09:50 Dose: Not Given Documented by: Atorvastatin Calcium (Lipitor -) 40 mg PO HS [facility] Last Admin: 06/12/20 21:08 Dose: 40 mg Documented by: Benzocaine/Menthol (Cepacol Lozenge -) 1 each MM PRN PRN PRN Reason: SORE THROAT Last Admin: 06/12/20 13:43 Dose: 1 each Documented by: Cholecalciferol (Vitamin D3 -) 1,000 unit PO DAILY [facility] Last Admin: 06/12/20 10:01 Dose: 1,000 unit Documented by: Cyanocobalamin (Vitamin B12 -) 100 mcg PO DAILY [facility] Last Admin: 06/12/20 10:02 Dose: 100 mcg Documented by: Hydralazine HCl (Apresoline Injection -) 10 mg IVPB Q8H PRN PRN Reason: HYPERTENSION Last Admin: 06/10/20 15:33 Dose: 10 mg Documented by: Sodium Chloride (Normal Saline -) 1,000 mls @ 100 mls/hr IV ASDIR [facility] Last Admin: 06/12/20 21:10 Dose: 100 mls/hr Documented by: Insulin Aspart (Novolog Vial Sliding Scale -) 1 vial SQ ACHS [facility]; Protocol Last Admin: 06/12/20 21:10 Dose: 4 units Documented by: Lisinopril (Prinivil) 20 mg PO DAILY [facility] Last Admin: 06/12/20 10:01 Dose: 20 mg Documented by: Pantoprazole Sodium (Protonix Iv) 40 mg IVPUSH BID [facility] Last Admin: 06/12/20 21:08 Dose: 40 mg Documented by: - Objective Vital Signs: Vital Signs Temperature 99.1 F 06/13/20 02:00 Pulse Rate 56 L 06/13/20 02:00 Respiratory Rate 19 06/13/20 02:00 Blood Pressure 123/53 L 06/13/20 02:00 O2 Sat by Pulse Oximetry (%) 100 06/12/20 21:00 Constitutional: Yes: No Distress, Calm Eyes: Yes: Conjunctiva Clear, EOM Intact Neck: Yes: Supple, Trachea Midline Cardiovascular: Yes: Regular Rate and Rhythm Respiratory: Yes: CTA Bilaterally Gastrointestinal: Yes: Soft (nt) Edema: No Peripheral Pulses WNL: Yes Neurological: Yes: Alert, Oriented Labs: CBC, BMP 06/12/20 06:45 06/12/20 06:45 INR, PTT INR 1.11 (0.83-1.09) H 06/06/20 22:23 Laboratory Tests 06/08/20 06/12/20 06/12/20 08:30 06:45 23:00 WBC Hgb 11.0 Plt Count Sodium Potassium BUN Creatinine Magnesium Gastric Occult Blood Positive Stool Occult Blood Negative 06/13/20 06/13/20 06:05 06:05 WBC 6.6 Hgb 10.1 L Plt Count 210 Sodium 140 Potassium 3.3 L BUN 7.1 Creatinine 0.7 Magnesium 1.5 L Gastric Occult Blood Stool Occult Blood - ....Imaging EKG: Image Reviewed Assessment/Plan a/p: 65 f hx htn, dm, cad s/p pci 2007 (after +stress test, no NV), exlap for prior sbo, here with abd pain, vomiting, SBO, possible GIB: Cad s/p remote pci, now with +trops/nstemi: -pt has no cardiac sxs but trop mildly elevated, peaked at 1.8. ECG unremar kable. Possible demand ischemia from acute issues but given cad hx possibly nstemi as well. Started hep gtt 06/07 but then had coffee ground fluids in ngt so hep gtt stopped. Cont statin, kayla. ASA on hold. -cont tele -will need ischemic eval, most likely with nuclear stress test, when acute issue s resolved -Echo 06/09 normal EF, normal RVSP htn: - dc'd atenolol for bradycardia in the 40s - cont current meds hld: -cont statin sbo: -surgery following, attempting conservative management for now, has been improving HypoK, Mg2+: -replete K+ , Mg2+ to 4, 2 respectively
[2020-06-13 07:14] LABS: HEMOGLOBIN 10.1 GM/dL (10.7-15.3); MCH 26.5 pg (25.7-33.7); MCHC 32.6 g/dl (32.0-36.0); MEAN CELL VOLUME 81.3 fl (80-96); MEAN PLT VOLUME 8.4 fl (7.5-11.1); PLATELET COUNT 210 K/MM3 (134-434); RBC 3.81 M/mm3 (3.60-5.2); RDW 13.7 % (11.6-15.6); WHITE BLOOD COUNT 6.6 K/mm3 (4.0-10.0)
[2020-06-13 07:41] LABS: BLOOD UREA NITROGEN 7.1 mg/dL (7-18); CREATININE 0.7 mg/dL (0.55-1.3); MAGNESIUM 1.5 mg/dL (1.8-2.4); PHOSPHOROUS 2.5 mg/dL (2.5-4.9); POTASSIUM 3.3 mmol/L (3.5-5.1)
[2020-06-13] MEDS: INSULIN SLIDING SCALE (NOVOLOG) 1 VIAL SQ SCH ×4 (08:15→21:26)
[2020-06-13] MEDS: SODIUM CHLORIDE 1,000 ML IV SCH (08:17)
[2020-06-13] MEDS ORDERED: MAGNESIUM SULF 50% (8.12 MEQ/2 ML-1 GM VIAL) IVPB ONE (08:22)
[2020-06-13] MEDS ORDERED: PT OWN MED DRAWER 7, Y5N ONE (09:27)
[2020-06-13] MEDS: amLODIPine BESYLATE 10 MG TABLET (FP) PO SCH (09:39)
[2020-06-13] MEDS: LISINOPRIL 20 MG TABLET (FP) PO SCH (09:39)
[2020-06-13] MEDS: CHOLECALCIFEROL (VIT D3) 1,000 UNIT (25 MCG) TABLET PO SCH (09:40)
[2020-06-13] MEDS: CYANOCOBALAMIN (VITAMIN B-12) 100 MCG TABLET PO SCH (09:40)
[2020-06-13] MEDS: PANTOPRAZOLE SODIUM 40 MG VIAL IVPUSH SCH ×2 (09:40→21:26)
[2020-06-13] MEDS ORDERED: MAGNESIUM 2GM/50ML STERILE WATER IVPB IVPB ONE (10:00)
[2020-06-13] MEDS: KCL 10 MEQ IVPB 10 MEQ/100 ML INFUS.BAG IVPB SCH ×3 (10:30→18:03)
--- NOTE | 2020-06-13 10:49 | PN ---
Progress Note (short form) - Note Progress Note: Surgery note: Pt states that she had a BM last night and this am too. No nausea or emesis. No abdominal pain complaints. Vital Signs Period Temp Pulse Resp BP Sys/Duff Pulse Ox Last 24 Hr 98.0 F-99.4 F 53-67 16-20 123-159/53-74 97-100 GEN: A&0x3, NAD ABD:soft, non-distended, non-tender CBC, BMP 06/13/20 06:05 06/13/20 06:05 ABD xray: no sign of obstruction A/p: 65 yo female with resolved SBO Recommend to advance diet as tolerated Replete electrotyles, hypokalemia D/w Dr. Vazquez and agrees with above plan <Delmy Cabral - Last Filed: 06/14/20 09:25> - Note Progress Note: Attending Surgeon: I personally saw and examined the patient. My examination reveals a patient with sbo. I discussed the case with the surgical PA and agree with their findings and plan of care with any exceptions as noted. ~ Giovanny Vazquez MD, FACS <Giovanny Vazquez - Last Filed: 06/14/20 17:33>
--- NOTE | 2020-06-13 13:25 | PN ---
Teaching Attending Note Name of Resident: Rudy Antonio ATTENDING PHYSICIAN STATEMENT I saw and evaluated the patient. I reviewed the resident's note and discussed the case with the resident. I agree with the resident's findings and plan as documented. SUBJECTIVE: Abdominal discomfort resolved. tolerating clears. No further nausea/vomiting. No fever/chills. OBJECTIVE: Afebrile, Hemodnamically Stable. Comfortable. Last Vital Signs Temp Pulse Resp BP Pulse Ox 98.7 F 57 L 20 143/64 97 % RA 06/13/20 09:00 06/13/20 09:00 06/13/20 09:00 06/13/20 09:00 06/13/20 09:00 Heart - S1, S2, RRR Lungs - clear to auscultation Abdomen - Soft, non-tender. Bowel Sounds +. Extremities - no edema, no calf tenderness. Neuro - AAO x 3. Tone/Power normal all extremities. Laboratory Results - last 24 hr 06/12/20 06/13/20 06/13/20 23:00 06:05 06:05 WBC 6.6 RBC 3.81 Hgb 10.1 L Hct 31.0 L MCV 81.3 MCH 26.5 MCHC 32.6 RDW 13.7 Plt Count 210 MPV 8.4 PTT (Actin FS) 29.9 Sodium Potassium Chloride Carbon Dioxide Anion Gap BUN Creatinine Est GFR (CKD-EPI)AfAm Est GFR (CKD-EPI)NonAf Random Glucose Calcium Phosphorus Magnesium Stool Occult Blood Negative 06/13/20 06:05 WBC RBC Hgb Hct MCV MCH MCHC RDW Plt Count MPV PTT (Actin FS) Sodium 140 Potassium 3.3 L Chloride 108 H Carbon Dioxide 26 Anion Gap 7 L BUN 7.1 Creatinine 0.7 Est GFR (CKD-EPI)AfAm 103.91 Est GFR (CKD-EPI)NonAf 89.65 Random Glucose 131 H Calcium 9.0 Phosphorus 2.5 Magnesium 1.5 L Stool Occult Blood Current Medications Generic Name Dose Route Start Last Admin Trade Name Freq PRN Reason Stop Dose Admin Acetaminophen 650 mg 06/07/20 05:14 06/10/20 19:02 Tylenol - PO 650 mg Q4H PRN Administration PAIN LEVEL 4 - 6 Amlodipine Besylate 10 mg 06/07/20 10:00 06/13/20 09:39 Norvasc - PO 10 mg DAILY [facility] Administration Aspirin 81 mg 06/07/20 10:00 06/10/20 09:50 Ecotrin - PO Not Given DAILY [facility] Atorvastatin Calcium 40 mg 06/07/20 22:00 06/12/20 21:08 Lipitor - PO 40 mg HS [facility] Administration Benzocaine/Menthol 1 each 06/09/20 16:21 06/12/20 13:43 Cepacol Lozenge - MM 1 each PRN PRN Administration SORE THROAT Cholecalciferol 1,000 unit 06/07/20 10:00 06/13/20 09:40 Vitamin D3 - PO 1,000 unit DAILY [facility] Administration Cyanocobalamin 100 mcg 06/07/20 10:00 06/13/20 09:40 Vitamin B12 - PO 100 mcg DAILY [facility] Administration Hydralazine HCl 10 mg 06/10/20 15:00 06/10/20 15:33 Apresoline Injection - IVPB 10 mg Q8H PRN Administration HYPERTENSION Sodium Chloride 1,000 mls @ 100 mls/hr 06/10/20 08:00 06/13/20 08:17 Normal Saline - IV 100 mls/hr ASDIR [facility] Administration Insulin Aspart 1 vial 06/07/20 07:00 06/13/20 12:42 Novolog Vial Sliding Scale - SQ 6 units ACHS [facility] Administration Protocol Lisinopril 20 mg 06/07/20 10:00 06/13/20 09:39 Prinivil PO 20 mg DAILY [facility] Administration Pantoprazole Sodium 40 mg 06/08/20 22:00 06/13/20 09:40 Protonix Iv IVPUSH 40 mg BID [facility] Administration Home Medications Medication Instructions Recorded Aspirin [Aspirin EC] 325 mg PO DAILY 09/18/15 Atenolol [Tenormin] 25 mg PO BID 09/18/15 Lisinopril [Prinivil -] 20 mg PO DAILY 09/18/15 Metformin HCl [Glucophage] 500 mg PO BID 09/18/15 Amlodipine Besylate [Norvasc -] 10 mg PO DAILY 12/27/19 Atorvastatin Calcium [Lipitor] 40 mg PO HS 12/27/19 Ergocalciferol (Vitamin D2) 1,000 unit PO DAILY 12/27/19 [Vitamin D2] Vitamin B12 100 mg PO DAILY 12/27/19 Glimepiride 1 mg PO DAILY 06/07/20 Naproxen 500 mg PO Q12H PRN 06/07/20 ASSESSMENT AND PLAN: 65 year old female with history of HTN, DM 2, CAD s/p Stents 2007, history of multiple episodes of SBO, presents with SBO and found to have acute NSTEMI. 1. Small Bowel Obstruction, recurrent Tolerating clears s/p NGT removal. Advance diet as tolerated as per Sx. Surgery following. Discontinue IV fluids. 2. Acute NSTEMI Likely secondary to demand, TropI max 1.84 Seen by Cardio and started on Heparin drip, eventually stopped due to coffee ground blood loss in NGT. Cardiology following. On Lipitor/BRIGITTE-I. Atenolol stopped due to Bradycardia. Ischemic work-up after resolution of current acute illness as per Cardio. 3. Acute Blood Loss anemia sec to coffee ground emesis ?sec to stress gastritis Gastric Occult Blood + Heparin drip stopped. H/H stable - monitor. Protonix BID. Will consult GI for recommendations regarding further work-up for coffee ground emesis given now resolving SBO. 4. Proteinuria and Hematuria Renal Ultrasound - bilateral renal cortical scarring. Urology out-patient follow-up 5. HTN - Continue Norvasc, Lisinopril. Atenolol stopped due to Bradycardia. 6. Hypomagnesemia/Hypokalemia - recurrent, repleted. 7. DM 2 - Glimepiride held. Maintain on Novolog sliding scale. DVT Px - SCDs. Heparin held due to coffee ground emesis.
--- NOTE | 2020-06-13 14:45 | CON.GI ---
Consult Consult Specialty:: Gastroenterology ( covering the [facility] service) Referred by:: DR Castañeda Reason for Consultation:: coffee grd emesis - History of Present Illness Chief Complaint: abdominal distension and vomiting History of Present Illness: 65F presented with coffe grd emnesis due to SBO. No melena. She has been managed conservatively and is tolerating a liquid diet. Had nonrevealing EGD with DR Rice several years ago. Had colonoscopy 08/16 at [facility] with no abnormalities. Had unrevealing exploratory laparotomy for SBO at [facility] and subsequent SBO managed conservatively - History Source History Provided By: Patient Limitations to Obtaining History: No Limitations - Past Medical History Cardio/Vascular: Yes: CAD (coronary stent x 2), HTN, Hyperlipdemia Gastrointestinal: Yes: Other (recurring SBO ) Musculoskeletal: Yes: Chronic low back pain Endocrine: Yes: Diabetes Mellitus - Past Surgical History Past Surgical History: Yes: Colonoscopy (DR Greenfield at [facility]- no abnormalities or polyps), Hysterectomy ([facility] for fibroids), Upper Endoscopy (DR Rice = no abnormalities) Additional Surgical History: Exploratory laparotomy for SBO at [facility] 1986. Nothing found or resected. SBO 1988 managed conservatively - Alcohol/Substance Use Hx Alcohol Use: Yes (only major holiday) History of Substance Use: reports: None - Smoking History Smoking history: Former smoker Have you smoked in the past 12 months: No If you are a former smoker, when did you quit?: 1999 - Social History Usual Living Arrangement: Alone ADL: Independent Occupation: retired home health aid Place of : [employer] History of Recent Travel: No Home Medications - Allergies Allergies/Adverse Reactions: Allergies Allergy/AdvReac Type Severity Reaction Status Date / Time No Known Drug Allergies Allergy Verified 06/06/20 20:58 - Home Medications Home Medications: Ambulatory Orders Aspirin [Aspirin EC] 325 mg PO DAILY 09/18/15 Atenolol [Tenormin] 25 mg PO BID 09/18/15 Lisinopril [Prinivil -] 20 mg PO DAILY 09/18/15 Metformin HCl [Glucophage] 500 mg PO BID 09/18/15 Amlodipine Besylate [Norvasc -] 10 mg PO DAILY 12/27/19 Atorvastatin Calcium [Lipitor] 40 mg PO HS 12/27/19 Ergocalciferol (Vitamin D2) [Vitamin D2] 1,000 unit PO DAILY 12/27/19 Vitamin B12 100 mg PO DAILY 12/27/19 Glimepiride 1 mg PO DAILY 06/07/20 Naproxen 500 mg PO Q12H PRN 06/07/20 Family Medical History Family Hx Diabetes: Mother (father lived to 87) Review of Systems - Review of Systems Constitutional: reports: No Symptoms Eyes: reports: No Symptoms HENT: reports: No Symptoms Neck: reports: No Symptoms Cardiovascular: reports: No Symptoms Respiratory: reports: No Symptoms Gastrointestinal: reports: No Symptoms Genitourinary: reports: No Symptoms Physical Exam-GI Vital Signs: Vital Signs Temperature 98.4 F 06/13/20 13:40 Pulse Rate 60 06/13/20 13:40 Respiratory Rate 18 06/13/20 13:40 Blood Pressure 133/67 06/13/20 13:40 O2 Sat by Pulse Oximetry (%) 98 06/13/20 13:40 CBC,CMP WBC 6.6 K/mm3 (4.0-10.0) 06/13/20 06:05 RBC 3.81 M/mm3 (3.60-5.2) 06/13/20 06:05 Hgb 10.1 GM/dL (10.7-15.3) L 06/13/20 06:05 Hct 31.0 % (32.4-45.2) L 06/13/20 06:05 MCV 81.3 fl (80-96) 06/13/20 06:05 MCH 26.5 pg (25.7-33.7) 06/13/20 06:05 MCHC 32.6 g/dl (32.0-36.0) 06/13/20 06:05 RDW 13.7 % (11.6-15.6) 06/13/20 06:05 Plt Count 210 K/MM3 (134-434) 06/13/20 06:05 MPV 8.4 fl (7.5-11.1) 06/13/20 06:05 Absolute Neuts (auto) 3.2 K/mm3 (1.5-8.0) 06/08/20 05:40 Neutrophils % 56.0 % (42.8-82.8) D 06/08/20 05:40 Lymphocytes % 31.1 % (8-40) D 06/08/20 05:40 Monocytes % 9.5 % (3.8-10.2) D 06/08/20 05:40 Eosinophils % 2.2 % (0-4.5) D 06/08/20 05:40 Basophils % 1.2 % (0-2.0) 06/08/20 05:40 Nucleated RBC % 0 % (0-0) 06/08/20 05:40 Sodium 140 mmol/L (136-145) 06/13/20 06:05 Potassium 3.3 mmol/L (3.5-5.1) L 06/13/20 06:05 Chloride 108 mmol/L (98-107) H 06/13/20 06:05 Carbon Dioxide 26 mmol/L (21-32) 06/13/20 06:05 Anion Gap 7 MMOL/L (8-16) L 06/13/20 06:05 BUN 7.1 mg/dL (7-18) 06/13/20 06:05 Creatinine 0.7 mg/dL (0.55-1.3) 06/13/20 06:05 Est GFR (CKD-EPI)AfAm 103.91 06/13/20 06:05 Est GFR (CKD-EPI)NonAf 89.65 06/13/20 06:05 POC Glucometer 96 UNITS (80-120) 06/11/20 21:46 Random Glucose 131 mg/dL (74-106) H 06/13/20 06:05 Lactic Acid 1.6 mmol/L (0.4-2.0) 06/07/20 17:37 Calcium 9.0 mg/dL (8.5-10.1) 06/13/20 06:05 Phosphorus 2.5 mg/dL (2.5-4.9) 06/13/20 06:05 Magnesium 1.5 mg/dL (1.8-2.4) L 06/13/20 06:05 Total Bilirubin 0.6 mg/dL (0.2-1) 06/10/20 05:52 AST 13 U/L (15-37) L 06/10/20 05:52 ALT 13 U/L (13-61) 06/10/20 05:52 Alkaline Phosphatase 33 U/L (45-117) L 06/10/20 05:52 Creatine Kinase 159 U/L (26-192) 06/06/20 22:23 Creatine Kinase Index 3.2 % (0.0-5.0) 06/06/20 22:23 CK-MB (CK-2) 5.1 ng/mL (0.5-3.6) H 06/06/20 22:23 Troponin I 1.14 ng/ml (0.00-0.05) H* 06/07/20 23:15 Total Protein 6.2 g/dl (6.4-8.2) L 06/10/20 05:52 Albumin 3.3 g/dl (3.4-5.0) L 06/10/20 05:52 Lipase 90 U/L (73-393) 06/06/20 22:23 Current Medications Generic Name Dose Route Start Last Admin Trade Name Freq PRN Reason Stop Dose Admin Acetaminophen 650 mg 06/07/20 05:14 06/10/20 19:02 Tylenol - PO 650 mg Q4H PRN Administration PAIN LEVEL 4 - 6 Amlodipine Besylate 10 mg 06/07/20 10:00 06/13/20 09:39 Norvasc - PO 10 mg DAILY [facility] Administration Aspirin 81 mg 06/07/20 10:00 06/10/20 09:50 Ecotrin - PO Not Given DAILY [facility] Atorvastatin Calcium 40 mg 06/07/20 22:00 06/12/20 21:08 Lipitor - PO 40 mg HS [facility] Administration Benzocaine/Menthol 1 each 06/09/20 16:21 06/12/20 13:43 Cepacol Lozenge - MM 1 each PRN PRN Administration SORE THROAT Cholecalciferol 1,000 unit 06/07/20 10:00 06/13/20 09:40 Vitamin D3 - PO 1,000 unit DAILY [facility] Administration Cyanocobalamin 100 mcg 06/07/20 10:00 06/13/20 09:40 Vitamin B12 - PO 100 mcg DAILY [facility] Administration Hydralazine HCl 10 mg 06/10/20 15:00 06/10/20 15:33 Apresoline Injection - IVPB 10 mg Q8H PRN Administration HYPERTENSION Insulin Aspart 1 vial 06/07/20 07:00 06/13/20 12:42 Novolog Vial Sliding Scale - SQ 6 units ACHS [facility] Administration Protocol Lisinopril 20 mg 06/07/20 10:00 06/13/20 09:39 Prinivil PO 20 mg DAILY [facility] Administration Pantoprazole Sodium 40 mg 06/08/20 22:00 06/13/20 09:40 Protonix Iv IVPUSH 40 mg BID [facility] Administration Constitutional: Yes: Calm Eyes: Yes: Conjunctiva Clear HENT: Yes: Atraumatic Neck: Yes: Trachea Midline Cardiovascular: Yes: Regular Rate and Rhythm Respiratory: Yes: CTA Bilaterally Gastrointestinal Inspection: Yes: Scars (long vertical midline and Pfannensteil incisions) ...Auscultate: Yes: Normoactive Bowel Sounds ...Palpate: Yes: Soft, Other (nonetdner) ...Rectal Exam: Yes: Deferred (declined) Labs: CBC, BMP 06/13/20 06:05 06/13/20 06:05 INR, PTT INR 1.11 (0.83-1.09) H 06/06/20 22:23 Problem List - Problems (1) Stented coronary artery Code(s): Z95.5 - PRESENCE OF CORONARY ANGIOPLASTY IMPLANT AND GRAFT (2) Diabetes mellitus Code(s): E11.9 - TYPE 2 DIABETES MELLITUS WITHOUT COMPLICATIONS (3) Hypertension Code(s): I10 - ESSENTIAL (PRIMARY) HYPERTENSION (4) Hyperlipidemia Code(s): E78.5 - HYPERLIPIDEMIA, UNSPECIFIED (5) Small bowel obstruction Code(s): K56.609 - UNSP INTESTNL OBST, UNSP TO PARTIAL VERSUS COMPLETE OBST Assessment/Plan IMpression: - Recurrent SBO is resolving. The SBO causes small bowel contents to stagnate which caused brownish discolorattion. NO signs of GI hemorrhage during the past week in the hospital Plan: - PPI for stress gastritis prophylaxis - SBO management as per surgical team DR Johnson will be covering weekend
[2020-06-13] MEDS ORDERED: POTASSIUM CHLORIDE TABS 20 MEQ TABLET.ER (FP) PO ONE (17:20)
--- NOTE | 2020-06-13 18:27 | PN ---
Physical Exam: SUBJECTIVE: Patient seen and examined at bedside. The patient reports feeling much better. She was able to have 2 bowel movements. She also is tolerating her clears diet. Her NG tube was removed. An abdominal x-ray shows the SBO has resolved. Per a phone call with Cardiology, Cardiology will now be evaluating the patient inpatient for her tropenemia as the patient's SBO has resolved. The patient denies fever/chills, shortness of breath, chest pain, diarrhea, constipation, and blood in her stool. OBJECTIVE: Vital Signs Period Temp Pulse Resp BP Sys/Duff Pulse Ox Last 24 Hr 98.0 F-99.1 F 52-63 16-20 123-159/53-74 97-100 GENERAL: The patient is awake, alert, and fully oriented, in no acute distress. HEAD: Normal with no signs of trauma. EYES: Extraocular movements intact. No ptosis. ENT: Ears normal, nares patent, oropharynx clear without exudates, moist mucous membranes. NECK: Trachea midline, full range of motion, supple. LUNGS: Breath sounds equal, clear to auscultation bilaterally, no wheezes, no crackles, no accessory muscle use. HEART: Regular rate and rhythm, S1, S2 without murmur, rub or gallop. ABDOMEN: Soft, nontender, nondistended, normoactive bowel sounds, no guarding, no rebound, no masses. EXTREMITIES: 2+ pulses, warm, well-perfused, no edema. NEUROLOGICAL: Normal speech, gait not observed. PSYCH: Normal mood, normal affect. SKIN: Warm, dry, normal turgor, no rashes or lesions noted Laboratory Results - last 24 hr 06/12/20 06/13/20 06/13/20 23:00 06:05 06:05 WBC 6.6 RBC 3.81 Hgb 10.1 L Hct 31.0 L MCV 81.3 MCH 26.5 MCHC 32.6 RDW 13.7 Plt Count 210 MPV 8.4 PTT (Actin FS) 29.9 Sodium Potassium Chloride Carbon Dioxide Anion Gap BUN Creatinine Est GFR (CKD-EPI)AfAm Est GFR (CKD-EPI)NonAf POC Glucometer Random Glucose Calcium Phosphorus Magnesium Stool Occult Blood Negative 06/13/20 06/13/20 06:05 16:25 WBC RBC Hgb Hct MCV MCH MCHC RDW Plt Count MPV PTT (Actin FS) Sodium 140 Potassium 3.3 L Chloride 108 H Carbon Dioxide 26 Anion Gap 7 L BUN 7.1 Creatinine 0.7 Est GFR (CKD-EPI)AfAm 103.91 Est GFR (CKD-EPI)NonAf 89.65 POC Glucometer 170 Random Glucose 131 H Calcium 9.0 Phosphorus 2.5 Magnesium 1.5 L Stool Occult Blood Active Medications Generic Name Dose Route Start Last Admin Trade Name Freq PRN Reason Stop Dose Admin Acetaminophen 650 mg 06/07/20 05:14 06/10/20 19:02 Tylenol - PO 650 mg Q4H PRN Administration PAIN LEVEL 4 - 6 Amlodipine Besylate 10 mg 06/07/20 10:00 06/13/20 09:39 Norvasc - PO 10 mg DAILY [facility] Administration Aspirin 81 mg 06/07/20 10:00 06/10/20 09:50 Ecotrin - PO Not Given DAILY [facility] Atorvastatin Calcium 40 mg 06/07/20 22:00 06/12/20 21:08 Lipitor - PO 40 mg HS [facility] Administration Benzocaine/Menthol 1 each 06/09/20 16:21 06/12/20 13:43 Cepacol Lozenge - MM 1 each PRN PRN Administration SORE THROAT Cholecalciferol 1,000 unit 06/07/20 10:00 06/13/20 09:40 Vitamin D3 - PO 1,000 unit DAILY [facility] Administration Cyanocobalamin 100 mcg 06/07/20 10:00 06/13/20 09:40 Vitamin B12 - PO 100 mcg DAILY [facility] Administration Hydralazine HCl 10 mg 06/10/20 15:00 06/10/20 15:33 Apresoline Injection - IVPB 10 mg Q8H PRN Administration HYPERTENSION Insulin Aspart 1 vial 06/07/20 07:00 06/13/20 17:19 Novolog Vial Sliding Scale - SQ 2 units ACHS [facility] Administration Protocol Lisinopril 20 mg 06/07/20 10:00 06/13/20 09:39 Prinivil PO 20 mg DAILY [facility] Administration Pantoprazole Sodium 40 mg 06/08/20 22:00 06/13/20 09:40 Protonix Iv IVPUSH 40 mg BID [facility] Administration ASSESSMENT/PLAN: 65 year old female patent with past medical history that includes HTN, DM, CAD s/p stents, and multiple episodes of SBOs who presented to the ED with nausea, vomiting, and abdominal pain. 1. SBO - resolved - Abdominal x-ray today shows resolution of SBO - NG tube removed - Diet advanced per Surgery team. Now is Full liquid diet. 2. Tropenemia likely secondary to demand ischemia - Trop max 1.84 - The patient is taking aspirin, lipitor, and kayla-i. The patient is off Atenolol due to low heart rate. - Cardiology will now evaluate her inpatient per a phone call with Cardio about her tropenemia possibly with a stress test 3. Coffee ground emesis secondary to possible GI bleed - Hgb 10.1 today - monitoring Hgb - Heparin being held - The patient is taking a PPI - GI recommends PPI for stress gastritis prophylaxis with SBO management per surgery, as GI explains that the emesis was most likely brown secondary to stagnation of the GI contents secondary to the SBO. 4. Proteinuria and Hematuria - Renal ultrasound shows bilateral renal cortical scarring - Urology outpatient f/u 5. HTN - The patient is taking amlodipine and lisinopril and hydralazine - Blood pressure has been better controlled with the Hydralazine. Most recent blood pressure is 140/65. - Monitoring blood pressure 6. DM - ISS 7. Hypomagnesemia/Hypophosphatemia - Monitoring levels - Repleted #FEN - IV fluids. Monitoring electrolytes. Full liquid diet. DVT PPx - SCDs. Heparin held due to coffee ground emesis GI PPx - Protonix Dispo - Cardiology will now currently evaluate her inpatient per a phone call with Cardio about her tropenemia possibly with a stress test Visit type - Emergency Visit Emergency Visit: Yes ED Registration Date: 06/07/20 Care time: The patient presented to the Emergency Department on the above date and was hospitalized for further evaluation of their emergent condition. - New Patient This patient is new to me today: No - Critical Care Critical Care patient: No - Discharge Referral Referred to [facility] No ATTENDING PHYSICIAN STATEMENT I saw and evaluated the patient. I reviewed the resident's note and discussed the case with the resident. I agree with the resident's findings and plan as documented. SUBJECTIVE: OBJECTIVE: ASSESSMENT AND PLAN:
[2020-06-13] MEDS: ATORVASTATIN CA 40 MG TABLET (FP) PO SCH (21:26)
[2020-06-14] MEDS: INSULIN SLIDING SCALE (NOVOLOG) 1 VIAL SQ SCH ×3 (06:07→17:01)
--- NOTE | 2020-06-14 07:23 | PN ---
Progress Note, Physician Chief Complaint: NSTEMI History of Present Illness: denies cp, sob, orthopnea--currently or at home/earlier this hosp stay. very active at home without sx's no more abd pain no palp, swelling no cigs - Current Medication List Current Medications: Active Medications Acetaminophen (Tylenol -) 650 mg PO Q4H PRN PRN Reason: PAIN LEVEL 4 - 6 Last Admin: 06/10/20 19:02 Dose: 650 mg Documented by: Amlodipine Besylate (Norvasc -) 10 mg PO DAILY [facility] Last Admin: 06/13/20 09:39 Dose: 10 mg Documented by: Aspirin (Ecotrin -) 81 mg PO DAILY [facility] Last Admin: 06/10/20 09:50 Dose: Not Given Documented by: Atorvastatin Calcium (Lipitor -) 40 mg PO HS [facility] Last Admin: 06/13/20 21:26 Dose: 40 mg Documented by: Benzocaine/Menthol (Cepacol Lozenge -) 1 each MM PRN PRN PRN Reason: SORE THROAT Last Admin: 06/12/20 13:43 Dose: 1 each Documented by: Cholecalciferol (Vitamin D3 -) 1,000 unit PO DAILY [facility] Last Admin: 06/13/20 09:40 Dose: 1,000 unit Documented by: Cyanocobalamin (Vitamin B12 -) 100 mcg PO DAILY [facility] Last Admin: 06/13/20 09:40 Dose: 100 mcg Documented by: Hydralazine HCl (Apresoline Injection -) 10 mg IVPB Q8H PRN PRN Reason: HYPERTENSION Last Admin: 06/10/20 15:33 Dose: 10 mg Documented by: Insulin Aspart (Novolog Vial Sliding Scale -) 1 vial SQ [facility]; Protocol Last Admin: 06/14/20 06:07 Dose: Not Given Documented by: Lisinopril (Prinivil) 20 mg PO DAILY [facility] Last Admin: 06/13/20 09:39 Dose: 20 mg Documented by: Pantoprazole Sodium (Protonix Iv) 40 mg IVPUSH BID [facility] Last Admin: 06/13/20 21:26 Dose: 40 mg Documented by: - Objective Vital Signs: Vital Signs Temperature 98.2 F 06/14/20 06:00 Pulse Rate 62 06/14/20 06:00 Respiratory Rate 16 06/14/20 06:00 Blood Pressure 132/61 06/14/20 06:00 O2 Sat by Pulse Oximetry (%) 98 06/14/20 06:00 Constitutional: Yes: No Distress, Calm Eyes: No: Sclera Icterus HENT: No: Nasal Congestion Cardiovascular: Yes: Regular Rate and Rhythm, S1, S2, Other (PMI non diplaced). No: JVD, Gallop, Murmur Respiratory: Yes: CTA Bilaterally. No: Accessory Muscle Use, Rales, Wheezes Gastrointestinal: Yes: Normal Bowel Sounds, Soft. No: Tenderness Musculoskeletal: Yes: Other (No kyphosis) Extremities: No: Cold, Cyanosis Edema: No Integumentary: No: Jaundice Neurological: Yes: Alert, Oriented (x3) Psychiatric: No: Agitated Labs: CBC, BMP 06/13/20 06:05 06/13/20 06:05 INR, PTT INR 1.11 (0.83-1.09) H 06/06/20 22:23 Assessment/Plan Echo: nl LV/RV. mild AI tele: NSR a/p: 65 f hx htn, dm, cad s/p pci 2007 (after +stress test, no IL), exlap for prior sbo, here with abd pain, vomiting, SBO, possible GIB: CAD s/p remote pci, NSTEMI here (Type I vs Type II): -details of prior cath not available, follows closely with Dr Latif at [facility] -pt has no cardiac sxs but trop mildly elevated, peaked at 1.8. ECG unremarkable. Possible demand ischemia from acute issues but given cad hx possibly nstemi as well. -resume aspirin (no suspicion of GIB per GI) -cont statin, BRIGITTE -no BB (sinus malcom here) -cont tele -for ischemia evaluation with nuclear stress test. pt feels well and wishes to go home. 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 verbalizes understanding of its importance and agrees to do so by next week. recurrent SBO: -GI input appreciated: SBO clinically resolving -no signs of GIB, stable H/H (brownish discoloration in NGT output is sec to stagnant small bowel contents) htn: - dc'd atenolol for bradycardia in the 40s - cont current meds hld: -cont statin HypoK, Mg2+: -replete K+ , Mg2+ to 4, 2 respectively
[2020-06-14 09:26] LABS: HEMATOCRIT 35.1 % (32.4-45.2); HEMOGLOBIN 11.4 GM/dL (10.7-15.3); MCH 26.8 pg (25.7-33.7); MCHC 32.5 g/dl (32.0-36.0); MEAN CELL VOLUME 82.5 fl (80-96); MEAN PLT VOLUME 8.8 fl (7.5-11.1); PLATELET COUNT 267 K/MM3 (134-434); RBC 4.26 M/mm3 (3.60-5.2); RDW 13.8 % (11.6-15.6); WHITE BLOOD COUNT 6.4 K/mm3 (4.0-10.0)
[2020-06-14 09:55] LABS: BLOOD UREA NITROGEN 3.9 mg/dL (7-18); CALCIUM 10.3 mg/dL (8.5-10.1); CREATININE 0.8 mg/dL (0.55-1.3); MAGNESIUM 1.7 mg/dL (1.8-2.4); PHOSPHOROUS 2.6 mg/dL (2.5-4.9); POTASSIUM 4.2 mmol/L (3.5-5.1)
[2020-06-14] MEDS ORDERED: ASPIRIN COATED 81 MG TABLET.EC PO SCH (10:00)
[2020-06-14] MEDS ORDERED: MAGNESIUM SULF 50% (8.12 MEQ/2 ML-1 GM VIAL) IVPB ONE (10:15)
[2020-06-14] MEDS: CYANOCOBALAMIN (VITAMIN B-12) 100 MCG TABLET PO SCH (10:28)
[2020-06-14] MEDS: CHOLECALCIFEROL (VIT D3) 1,000 UNIT (25 MCG) TABLET PO SCH (10:28)
[2020-06-14] MEDS: LISINOPRIL 20 MG TABLET (FP) PO SCH (10:28)
[2020-06-14] MEDS: amLODIPine BESYLATE 10 MG TABLET (FP) PO SCH (10:28)
[2020-06-14] MEDS: PANTOPRAZOLE SODIUM 40 MG VIAL IVPUSH SCH (10:28)
--- NOTE | 2020-06-14 15:05 | PN ---
Teaching Attending Note Name of Resident: Rudy Antonio ATTENDING PHYSICIAN STATEMENT I saw and evaluated the patient. I reviewed the resident's note and discussed the case with the resident. I agree with the resident's findings and plan as documented. SUBJECTIVE: Abdominal discomfort resolved. Tolerating full diet. No further nausea/vomiting. No fever/chills. OBJECTIVE: Afebrile, Hemodnamically Stable. Comfortable. Last Vital Signs Temp Pulse Resp BP Pulse Ox 98.4 F 59 L 18 148/71 98 06/14/20 10:06/14/20 10:06/14/20 10:06/14/20 10:06/14/20 13:13 Heart - S1, S2, RRR Lungs - clear to auscultation Abdomen - Soft, non-tender. Bowel Sounds +. Extremities - no edema, no calf tenderness. Neuro - AAO x 3. Tone/Power normal all extremities. Laboratory Results - last 24 hr 06/13/20 06/14/20 06/14/20 16:25 08:50 08:50 WBC 6.4 RBC 4.26 Hgb 11.4 Hct 35.1 MCV 82.5 MCH 26.8 MCHC 32.5 RDW 13.8 Plt Count 267 D MPV 8.8 Sodium 139 Potassium 4.2 Chloride 105 Carbon Dioxide 26 Anion Gap 8 BUN 3.9 L Creatinine 0.8 Est GFR (CKD-EPI)AfAm 88.42 Est GFR (CKD-EPI)NonAf 76.29 POC Glucometer 170 Random Glucose 213 H Calcium 10.3 H Phosphorus 2.6 Magnesium 1.7 L Current Medications Generic Name Dose Route Start Last Admin Trade Name Devonte PRN Reason Stop Dose Admin Acetaminophen 650 mg 06/07/20 05:14 06/10/20 19:02 Tylenol - PO 650 mg Q4H PRN Administration PAIN LEVEL 4 - 6 Amlodipine Besylate 10 mg 06/07/20 10:00 06/14/20 10:28 Norvasc - PO 10 mg DAILY [facility] Administration Aspirin 81 mg 06/14/20 10:00 06/14/20 10:27 Ecotrin - PO 81 mg DAILY [facility] Administration Atorvastatin Calcium 40 mg 06/07/20 22:00 06/13/20 21:26 Lipitor - PO 40 mg HS [facility] Administration Benzocaine/Menthol 1 each 06/09/20 16:21 06/12/20 13:43 Cepacol Lozenge - MM 1 each PRN PRN Administration SORE THROAT Cholecalciferol 1,000 unit 06/07/20 10:00 06/14/20 10:28 Vitamin D3 - PO 1,000 unit DAILY [facility] Administration Cyanocobalamin 100 mcg 06/07/20 10:00 06/14/20 10:28 Vitamin B12 - PO 100 mcg DAILY [facility] Administration Hydralazine HCl 10 mg 06/10/20 15:00 06/10/20 15:33 Apresoline Injection - IVPB 10 mg Q8H PRN Administration HYPERTENSION Insulin Aspart 1 vial 06/07/20 07:00 06/14/20 11:48 Novolog Vial Sliding Scale - SQ 2 units ACHS [facility] Administration Protocol Lisinopril 20 mg 06/07/20 10:00 06/14/20 10:28 Prinivil PO 20 mg DAILY [facility] Administration Pantoprazole Sodium 40 mg 06/08/20 22:00 06/14/20 10:28 Protonix Iv IVPUSH 40 mg BID [facility] Administration Home Medications Medication Instructions Recorded Aspirin [Aspirin EC] 325 mg PO DAILY 09/18/15 Atenolol [Tenormin] 25 mg PO BID 09/18/15 Lisinopril [Prinivil -] 20 mg PO DAILY 09/18/15 Metformin HCl [Glucophage] 500 mg PO BID 09/18/15 Amlodipine Besylate [Norvasc -] 10 mg PO DAILY 12/27/19 Atorvastatin Calcium [Lipitor] 40 mg PO HS 12/27/19 Ergocalciferol (Vitamin D2) 1,000 unit PO DAILY 12/27/19 [Vitamin D2] Vitamin B12 100 mg PO DAILY 12/27/19 Glimepiride 1 mg PO DAILY 06/07/20 Naproxen 500 mg PO Q12H PRN 06/07/20 ASSESSMENT AND PLAN: 65 year old female with history of HTN, DM 2, CAD s/p Stents 2007, history of multiple episodes of SBO, presents with SBO and found to have acute NSTEMI. 1. Small Bowel Obstruction, recurrent - resolved Tolerating full diet s/p NGT removal - advance to soft diet. Surgery following - for out-patient follow up. 2. Acute NSTEMI Likely secondary to demand, TropI max 1.84 Seen by Cardio and started on Heparin drip, eventually stopped due to coffee ground blood loss in NGT. Cardiology recommends out-patient stress test. Discussed with Dr. Nolasco - no objection to discharge from a cardiology perspective On Lipitor/BRIGITTE-I. Atenolol stopped due to Bradycardia. Ischemic work-up as out-patient including Stress Test. 3. Acute Blood Loss anemia sec to coffee ground emesis ?sec to stress gastritis Gastric Occult Blood +, FOBT negative. Heparin drip stopped. H/H stable Cleared for discharge from GI perspective on Protonix. 4. Proteinuria and Hematuria Renal Ultrasound - bilateral renal cortical scarring. Urology out-patient follow-up 5. HTN - Continue Norvasc, Lisinopril. Atenolol stopped due to Bradycardia. 6. Hypomagnesemia/Hypokalemia - recurrent, repleted. 7. DM 2 - Resume Glimepiride on discharge. Improved. Medically Stable for discharge on Soft diet with Cardiology, Urology, and Surgery follow ups.
--- NOTE | 2020-06-14 17:01 | DS ---
Physical Exam: SUBJECTIVE: Patient seen and examined at bedside. The patient denies fever/chills, shortness of breath, chest pain, diarrhea, and constipation. OBJECTIVE: Vital Signs Period Temp Pulse Resp BP Sys/Duff Pulse Ox Last 24 Hr 98.2 F-98.7 F 51-62 16-20 132-148/58-71 98-99 PHYSICAL EXAM GENERAL: The patient is awake, alert, and fully oriented, in no acute distress. HEAD: Normal with no signs of trauma. EYES: Extraocular movements intact. ENT: Ears normal, nares patent, oropharynx clear without exudates, moist mucous membranes. NECK: Trachea midline, full range of motion, supple. LUNGS: Breath sounds equal, clear to auscultation bilaterally, no wheezes, no crackles, no accessory muscle use. HEART: Regular rate and rhythm, S1, S2 without murmur, rub or gallop. ABDOMEN: Soft, nontender, nondistended, normoactive bowel sounds, no guarding, no rebound, no masses. EXTREMITIES: 2+ pulses, warm, well-perfused, no edema. NEUROLOGICAL: Normal speech, gait not observed. PSYCH: Normal mood, normal affect. SKIN: Warm, dry, normal turgor, no rashes or lesions noted. LABS Laboratory Results - last 24 hr 06/14/20 06/14/20 08:50 08:50 WBC 6.4 RBC 4.26 Hgb 11.4 Hct 35.1 MCV 82.5 MCH 26.8 MCHC 32.5 RDW 13.8 Plt Count 267 D MPV 8.8 Sodium 139 Potassium 4.2 Chloride 105 Carbon Dioxide 26 Anion Gap 8 BUN 3.9 L Creatinine 0.8 Est GFR (CKD-EPI)AfAm 88.42 Est GFR (CKD-EPI)NonAf 76.29 Random Glucose 213 H Calcium 10.3 H Phosphorus 2.6 Magnesium 1.7 L HOSPITAL COURSE: Date of Admission:06/07/20 65 year old female patient with past medical history that includes HTN, DM, CAD s/p stents, and multiple episodes of SBOs who presented to the ED with nausea, vomiting, and abdominal pain. An abdominal x-ray showed a small bowel obstruction, and the patient began conservative management with an NG tube. The patient was also found to have tropenemia with a Troponin max of 1.84. Protein and blood was found on a urinalysis, and a renal ultrasound then found bilateral renal cortical scarring. During the patient's hospital stay, the patient vomited coffee ground emesis with a positive gastric occult blood test but a negative stool occult blood test. The patient received serial abdominal xrays, which showed improvement and finally resolution of the SBO using conservative management. The patient was able to have bowel movements again. For discharge, GI recommended PPI for stress gastritis prophylaxis, and the patient was told to follow up with Cardiology for an outpatient stress test due to her tropenemia and to follow up with Urology due to the bilateral cortical scarring found on renal ultrasound. Date of Discharge: 06/14/20 Minutes to complete discharge: 48 Discharge Summary Problems reviewed: Yes Reason For Visit: NON-ST ELEVATION MYOCARDIAL INFARCTION (NSTEMI) Current Active Problems Diabetes mellitus (Chronic) Hyperlipidemia (Chronic) Hypertension (Chronic) Condition: Good - Instructions Diet, Activity, Other Instructions: You were admitted to the hospital for abdominal pain, nausea and vomiting. We evaluated you with blood work, lab work, and imaging. Based on our evaluation we found you had a small bowel obstruction which required medication, and fluid to help resolve. We had our surgeons evaluate you and they recommended no surgical intervention and just conservative management for you, which helped resolve your symptoms. While you were here we also found that you had elevated cardiac enzymes. This requires a stress test to be performed for further evaluation. However, after discussion with your regional business development manager, he recommended that you can receive this stress test outpatient. Please follow up with the regional business development manager outpatient for a stress test of your heart. We also found some blood and protein in your urine during your hospital stay, which is not of concern at the moment but will require outpatient follow up with your urologist. An ultrasound of your kidneys also showed scarring. Please follow up with a urologist regarding these findings. While you were here, we also noticed some abnormalities in the color of your vomit, which will need to be followed up with the instructor product inspection outpatient. Medications: We made some changes to your medications, please start taking these medications as prescribed Please STOP taking Aspirin 325mg Please STOP taking your Atenolol because your heart rate was too low. Please STOP taking your Naproxen to avoid hurting your your stomach. INSTEAD: Please START taking Aspirin 81mg once daily Please START taking Pantoprazole 40mg once daily Please continue all of your medications as prescribed. Follow ups Please follow up with the regional business development manager Dr. Gallito Nolasco regarding your elevated cardiac enzymes. You will need to undergo a stress test outpatient, please follow up with your regional business development manager for this stress test. Please follow up with the urologist Dr. Elliot Aponte regarding the abnormalities found in your imaging. Please follow up with the surgeon Dr. Giovanny Vazquez regarding your small bowel obstruction. Please follow up with the instructor product inspection Dr. Augustine Rodney regarding dark stained vomit found during your hospital stay. Please follow up with the primary care physician Dr. Ema Hein. If you experience worsening of your symptoms, chest pain, difficulty breathing, abdominal pain, or worsening of your condition, please come back to the emergency room. Referrals: Giovanny Vazquez MD [Staff Physician] - Elliot Aponte MD [Staff Physician] - 2 Weeks (Hematuria, Proteinuria, renal cortical scarring) Gallito Nolasco MD [Staff Physician] - 1 Week (Demand iscemia during admission for SBO, needs stress test.) Augustine Rodney MD [Staff Physician] - 2 Weeks (Coffee ground emesis due to stress gastirtis) Ema Hein MD [Primary Care Provider] - 1 Week Disposition: VNS/HOME HEALTH CARE - Home Medications Comprehensive Discharge Medication List: Ambulatory Orders Lisinopril [Prinivil -] 20 mg PO DAILY 09/18/15 Metformin HCl [Glucophage] 500 mg PO BID 09/18/15 Amlodipine Besylate [Norvasc -] 10 mg PO DAILY 12/27/19 Atorvastatin Calcium [Lipitor] 40 mg PO HS 12/27/19 Ergocalciferol (Vitamin D2) [Vitamin D2] 1,000 unit PO DAILY 12/27/19 Vitamin B12 100 mg PO DAILY 12/27/19 Glimepiride 1 mg PO DAILY 06/07/20 Aspirin Coated [Ecotrin -] 81 mg PO DAILY 30 Days #30 tablet.ec 06/14/20 Pantoprazole Sodium [Protonix] 40 mg PO DAILY 30 Days #30 tablet. 06/14/20 This patient is new to me today: No Emergency Visit: Yes ED Registration Date: 06/07/20 Care time: The patient presented to the Emergency Department on the above date and was hospitalized for further evaluation of their emergent condition. Critical Care patient: No - Discharge Referral Referred to [facility] Med P.C.: No ATTENDING PHYSICIAN STATEMENT I saw and evaluated the patient. I reviewed the resident's note and discussed the case with the resident. I agree with the resident's findings and plan as documented. SUBJECTIVE: OBJECTIVE: ASSESSMENT AND PLAN:
[2020-06-14 17:28] VITALS: BP 136/74; PULSE 60; TEMP 98
== END 2020-06-14 17:35 | disposition home health service (06) | DRG 388 ==
LOC: JER 20:53 → JERBED 06-07 02:20 → J4S 06-07 03:20
PROVIDERS: ADMIT Internal Medicine
PROC: 0D9670Z Drainage of Stomach with Drainage Device, Via Natural or Artificial Opening (ICD-10-PCS; principal; 2020-06-07)
PROC: 0DP6X0Z Removal of Drainage Device from Stomach, External Approach (ICD-10-PCS; 2020-06-13)
DX: K56.50 Intestinal adhesions [bands], unspecified as to partial versus complete obstruction (principal); I21.4 Non-ST elevation (NSTEMI) myocardial infarction; E87.2 Acidosis; E87.1 Hypo-osmolality and hyponatremia; D62 Acute posthemorrhagic anemia; I10 Essential (primary) hypertension; E11.9 Type 2 diabetes mellitus without complications; G25.81 Restless legs syndrome; M54.30 Sciatica, unspecified side; Z79.84 Long term (current) use of oral hypoglycemic drugs; E83.42 Hypomagnesemia; R31.9 Hematuria, unspecified; I25.10 Atherosclerotic heart disease of native coronary artery without angina pectoris; R80.9 Proteinuria, unspecified; E83.39 Other disorders of phosphorus metabolism; E87.6 Hypokalemia; Z95.5 Presence of coronary angioplasty implant and graft
CPT/HCPCS: 36415; 71045-TC-FY; 74018-TC-FY; 74019-TC-FY; 74177-TC; 76775-TC; 80048; 80053; 81003; 82271; 82272; 82550; 82553; 82962; 83605; 83690; 83735; 84100; 84132; 84484; 85025; 85027; 85610; 85730; 86850; 86900; 86901; 93005; 93010; 93306-TC; 97116-GP; 97161-GP; 99285-25; J0131; J1644; Q9967; U0003

== ENCOUNTER 2022-01-07 11:54 | Inpatient (IN) | payer OTHER ==
[2022-01-07] MEDS ORDERED: SODIUM CHLORIDE 1,000 ML IV STA (13:58)
[2022-01-07] MEDS ORDERED: ACETAMINOPHEN 1000 MG/100 ML BAG IVPB ONE (13:59)
[2022-01-07] MEDS ORDERED: ACETAMINOPHEN INJECTION 100 ML IVPB ONE (14:31)
[2022-01-07 15:00] LABS: EPI CELLS 19 /uL (0-25.1); HYALINE CASTS 3 /uL (0-3.1); URINE APPEARANCE CLEAR; URINE BACTERIA 11 /uL (0-1359); URINE BILIRUBIN NEGATIVE (NEGATIVE); URINE COLOR YELLOW; URINE GLUCOSE (UA) 2+ (NEGATIVE); URINE KETONE NEGATIVE (NEGATIVE); URINE LEUK ESTERASE NEGATIVE (NEGATIVE); URINE NITRITE NEGATIVE (NEGATIVE); URINE PROTEIN 3+ (NEGATIVE); URINE RBC 78 /uL (0-23.9); URINE UROBILINOGEN 0.2 mg/dL (0.2-1.0); URINE WBC 9 /uL (0-25.8)
[2022-01-07 16:13] LABS: BASO % 0.4 % (0-2.0); HEMATOCRIT 39.7 % (32.4-45.2); HEMOGLOBIN 12.8 GM/dL (10.7-15.3); LYMPH % 32.8 % (8-40); MCH 24.4 pg (25.7-33.7); MCHC 32.4 g/dl (32.0-36.0); MEAN CELL VOLUME 75.3 fl (80-96); MONO % 9.6 % (3.8-10.2); NEUT % 57.2 % (42.8-82.8); PLATELET COUNT 275 10^3/uL (134-434); RBC 5.27 M/mm3 (3.60-5.2); RDW 15.3 % (11.6-15.6); WHITE BLOOD COUNT 6.6 K/mm3 (4.0-10.0)
[2022-01-07 16:33] LABS: CALCIUM 10.4 mg/dL (8.5-10.1)
[2022-01-07 16:34] LABS: ALBUMIN 4.3 g/dl (3.4-5.0); BLOOD UREA NITROGEN 29.5 mg/dL (7-18)
[2022-01-07 16:37] LABS: CREATININE 1.4 mg/dL (0.55-1.3)
[2022-01-07 16:38] LABS: TOT PROT 8.1 g/dl (6.4-8.2)
[2022-01-07 16:39] LABS: BILIRUBIN,TOTAL 0.4 mg/dL (0.2-1)
[2022-01-07 16:59] LABS: LACTIC ACID 4.8 mmol/L (0.4-2.0)
[2022-01-07] MEDS ORDERED: SODIUM CHLORIDE 0.9% 500 ML INFUS.BAG IV ONE (17:07)
[2022-01-07 18:16] LABS: BLOOD UREA NITROGEN 27.6 mg/dL (7-18); CALCIUM 9.6 mg/dL (8.5-10.1)
[2022-01-07 18:20] LABS: CREATININE 1.1 mg/dL (0.55-1.3)
[2022-01-07 18:21] LABS: BILIRUBIN,TOTAL 0.5 mg/dL (0.2-1); TOT PROT 7.7 g/dl (6.4-8.2)
[2022-01-08] MEDS ORDERED: ENALAPRILAT DIHYDRATE 1.25 MG/1 ML VIAL IVPB ONE (00:04)
[2022-01-08] MEDS: SODIUM CHLORIDE 1,000 ML IV SCH (00:24)
[2022-01-08] MEDS ORDERED: ENALAPRILAT DIHYDRATE 2.5 MG/2 ML VIAL IVPB ONE ×3 (00:46→17:36)
[2022-01-08 04:33] LABS: EPI CELLS 8 /uL (0-25.1); HYALINE CASTS 1 /uL (0-3.1); URINE APPEARANCE CLEAR; URINE BACTERIA 7 /uL (0-1359); URINE BILIRUBIN NEGATIVE (NEGATIVE); URINE COLOR YELLOW; URINE GLUCOSE (UA) NEGATIVE (NEGATIVE); URINE KETONE 1+ (NEGATIVE); URINE LEUK ESTERASE NEGATIVE (NEGATIVE); URINE NITRITE NEGATIVE (NEGATIVE); URINE PROTEIN 3+ (NEGATIVE); URINE RBC 29 /uL (0-23.9); URINE UROBILINOGEN 0.2 mg/dL (0.2-1.0); URINE WBC 13 /uL (0-25.8)
[2022-01-08 08:25] LABS: BASO % 0.4 % (0-2.0); HEMATOCRIT 36.9 % (32.4-45.2); HEMOGLOBIN 12.1 GM/dL (10.7-15.3); LYMPH % 20.8 % (8-40); MCH 24.6 pg (25.7-33.7); MCHC 32.8 g/dl (32.0-36.0); MEAN CELL VOLUME 74.9 fl (80-96); MEAN PLT VOLUME 8.5 fl (7.5-11.1); MONO % 12.8 % (3.8-10.2); PLATELET COUNT 225 10^3/uL (134-434); RBC 4.92 M/mm3 (3.60-5.2); RDW 14.9 % (11.6-15.6); WHITE BLOOD COUNT 6.6 K/mm3 (4.0-10.0)
[2022-01-08 08:33] LABS: ALBUMIN 3.9 g/dl (3.4-5.0); BLOOD UREA NITROGEN 27.5 mg/dL (7-18); CALCIUM 9.6 mg/dL (8.5-10.1); MAGNESIUM 2.1 mg/dL (1.8-2.4)
[2022-01-08 08:36] LABS: PHOSPHOROUS 3.1 mg/dL (2.5-4.9)
[2022-01-08 08:38] LABS: BILIRUBIN,TOTAL 0.5 mg/dL (0.2-1); TOT PROT 7.3 g/dl (6.4-8.2)
[2022-01-08] MEDS ORDERED: ENOXAPARIN NA (PORCINE) 40 MG/0.4 ML DISP.SYRIN SQ ONE (09:11)
[2022-01-08] MEDS: ENOXAPARIN NA (PORCINE) 40 MG/0.4 ML DISP.SYRIN SQ SCH (09:40)
[2022-01-08] MEDS: ENALAPRILAT DIHYDRATE 1.25 MG/1 ML VIAL IVPB SCH ×2 (12:26→17:39)
[2022-01-09] MEDS: SODIUM CHLORIDE 1,000 ML IV SCH (00:09)
[2022-01-09] MEDS: ENALAPRILAT DIHYDRATE 1.25 MG/1 ML VIAL IVPB SCH ×5 (00:09→23:13)
[2022-01-09] MEDS: ENOXAPARIN NA (PORCINE) 40 MG/0.4 ML DISP.SYRIN SQ SCH (09:26)
[2022-01-09 10:01] LABS: HEMATOCRIT 36.5 % (32.4-45.2); HEMOGLOBIN 11.4 GM/dL (10.7-15.3); MCH 24.1 pg (25.7-33.7); MCHC 31.3 g/dl (32.0-36.0); MEAN CELL VOLUME 76.8 fl (80-96); MEAN PLT VOLUME 8.7 fl (7.5-11.1); PLATELET COUNT 221 10^3/uL (134-434); RBC 4.75 M/mm3 (3.60-5.2); RDW 14.9 % (11.6-15.6); WHITE BLOOD COUNT 6.2 K/mm3 (4.0-10.0)
[2022-01-09 10:30] LABS: CALCIUM 9.7 mg/dL (8.5-10.1)
[2022-01-09 10:31] LABS: ALBUMIN 3.6 g/dl (3.4-5.0); BLOOD UREA NITROGEN 19.5 mg/dL (7-18)
[2022-01-09 10:34] LABS: CREATININE 0.9 mg/dL (0.55-1.3); PHOSPHOROUS 1.9 mg/dL (2.5-4.9)
[2022-01-09 10:36] LABS: BILIRUBIN,TOTAL 1.2 mg/dL (0.2-1)
[2022-01-09 10:37] LABS: TOT PROT 6.8 g/dl (6.4-8.2)
[2022-01-09 15:26] VITALS: BMI 27.1
[2022-01-10] MEDS: SODIUM CHLORIDE 1,000 ML IV SCH ×2 (03:53→23:07)
[2022-01-10] MEDS: ENALAPRILAT DIHYDRATE 1.25 MG/1 ML VIAL IVPB SCH ×3 (05:19→21:18)
[2022-01-10 10:00] LABS: BASO % 0.4 % (0-2.0); EOS % 0.7 % (0-4.5); HEMATOCRIT 37.4 % (32.4-45.2); HEMOGLOBIN 11.7 GM/dL (10.7-15.3); LYMPH % 33.8 % (8-40); MCHC 31.2 g/dl (32.0-36.0); MEAN CELL VOLUME 77.1 fl (80-96); MEAN PLT VOLUME 8.6 fl (7.5-11.1); MONO % 11.2 % (3.8-10.2); NEUT % 53.9 % (42.8-82.8); PLATELET COUNT 244 10^3/uL (134-434); RBC 4.85 M/mm3 (3.60-5.2); RDW 15.2 % (11.6-15.6); WHITE BLOOD COUNT 8.7 K/mm3 (4.0-10.0)
[2022-01-10 10:16] LABS: CALCIUM 9.7 mg/dL (8.5-10.1)
[2022-01-10 10:17] LABS: ALBUMIN 3.5 g/dl (3.4-5.0)
[2022-01-10 10:20] LABS: CREATININE 0.9 mg/dL (0.55-1.3)
[2022-01-10 10:22] LABS: BILIRUBIN,TOTAL 0.6 mg/dL (0.2-1); TOT PROT 7.1 g/dl (6.4-8.2)
[2022-01-10] MEDS: ENOXAPARIN NA (PORCINE) 40 MG/0.4 ML DISP.SYRIN SQ SCH (10:35)
[2022-01-10] MEDS: KCL 10 MEQ IVPB 10 MEQ/100 ML INFUS.BAG IVPB SCH ×3 (13:33→17:41)
[2022-01-10] MEDS ORDERED: hydrALAZINE HCL 20 MG/ML VIAL IVPUSH ONE (23:49)
[2022-01-11] MEDS ORDERED: hydrALAZINE HCL 20 MG/ML VIAL IVPB ONE (00:04)
[2022-01-11] MEDS: ENALAPRILAT DIHYDRATE 1.25 MG/1 ML VIAL IVPB SCH ×4 (02:30→20:55)
[2022-01-11] MEDS ORDERED: ACETAMINOPHEN 1000 MG/100 ML BAG IVPB PRN (09:55)
[2022-01-11] MEDS: ENOXAPARIN NA (PORCINE) 40 MG/0.4 ML DISP.SYRIN SQ SCH (10:44)
[2022-01-11] MEDS: SODIUM CHLORIDE 1,000 ML IV SCH (20:54)
[2022-01-12] MEDS: SODIUM CHLORIDE 1,000 ML IV SCH (00:40)
[2022-01-12] MEDS: ENALAPRILAT DIHYDRATE 1.25 MG/1 ML VIAL IVPB SCH ×2 (02:02→10:06)
[2022-01-12] MEDS ORDERED: hydrALAZINE HCL 20 MG/ML VIAL IVPB ONE (04:26)
[2022-01-12 09:14] LABS: HEMATOCRIT 36.5 % (32.4-45.2); HEMOGLOBIN 11.3 GM/dL (10.7-15.3); MCH 24.1 pg (25.7-33.7); MCHC 31.1 g/dl (32.0-36.0); MEAN CELL VOLUME 77.7 fl (80-96); MEAN PLT VOLUME 8.8 fl (7.5-11.1); PLATELET COUNT 288 10^3/uL (134-434); RDW 15.4 % (11.6-15.6); WHITE BLOOD COUNT 6.7 K/mm3 (4.0-10.0)
[2022-01-12] MEDS: ENOXAPARIN NA (PORCINE) 40 MG/0.4 ML DISP.SYRIN SQ SCH (09:35)
[2022-01-12] MEDS: ATENOLOL 25 MG TABLET (FP) PO SCH (09:47)
[2022-01-12] MEDS: amLODIPine BESYLATE 10 MG TABLET (FP) PO SCH (09:47)
[2022-01-12 09:54] LABS: CALCIUM 9.6 mg/dL (8.5-10.1)
[2022-01-12 09:55] LABS: ALBUMIN 3.2 g/dl (3.4-5.0); BLOOD UREA NITROGEN 17.8 mg/dL (7-18); MAGNESIUM 1.9 mg/dL (1.8-2.4)
[2022-01-12 09:57] LABS: CREATININE 0.9 mg/dL (0.55-1.3); PHOSPHOROUS 3.2 mg/dL (2.5-4.9)
[2022-01-12 09:59] LABS: BILIRUBIN,TOTAL 0.7 mg/dL (0.2-1); TOT PROT 6.6 g/dl (6.4-8.2)
[2022-01-12] MEDS: INSULIN SLIDING SCALE (NOVOLOG) 1 VIAL SQ SCH ×2 (17:25→21:02)
[2022-01-12] MEDS ORDERED: INSULIN (NOVOLOG) ASPART 100 UNITS/ML 10ML VIAL ONE (20:40)
[2022-01-12] MEDS: GABAPENTIN 300 MG CAPSULE PO SCH (21:01)
[2022-01-12] MEDS ORDERED: ROSUVASTATIN CA 20 MG TABLET PO SCH (22:00)
[2022-01-13] MEDS ORDERED: INSULIN (NOVOLOG) ASPART 100 UNITS/ML 10ML VIAL ONE (01:39)
[2022-01-13] MEDS: INSULIN SLIDING SCALE (NOVOLOG) 1 VIAL SQ SCH ×2 (06:15→12:21)
[2022-01-13 08:53] LABS: HEMATOCRIT 34.4 % (32.4-45.2); HEMOGLOBIN 11.4 GM/dL (10.7-15.3); MCHC 33.1 g/dl (32.0-36.0); MEAN CELL VOLUME 75.6 fl (80-96); PLATELET COUNT 296 10^3/uL (134-434); RBC 4.55 M/mm3 (3.60-5.2); RDW 15.3 % (11.6-15.6); WHITE BLOOD COUNT 6.3 K/mm3 (4.0-10.0)
[2022-01-13 09:30] LABS: BLOOD UREA NITROGEN 13.1 mg/dL (7-18); CALCIUM 9.5 mg/dL (8.5-10.1); MAGNESIUM 2.1 mg/dL (1.8-2.4)
[2022-01-13] MEDS: ENOXAPARIN NA (PORCINE) 40 MG/0.4 ML DISP.SYRIN SQ SCH (09:31)
[2022-01-13 09:33] LABS: CREATININE 1.2 mg/dL (0.55-1.3); PHOSPHOROUS 3.1 mg/dL (2.5-4.9)
[2022-01-13] MEDS ORDERED: LISINOPRIL 20 MG TABLET PO SCH (10:00)
[2022-01-13] MEDS ORDERED: ASPIRIN COATED 81 MG TABLET.EC PO SCH (10:00)
[2022-01-13] MEDS ORDERED: PANTOPRAZOLE 20 MG TABLET PO SCH (10:00)
[2022-01-13] MEDS ORDERED: ASPIRIN 325 MG ENTERIC COATED TABLET (FP) PO SCH ×2 (10:56→11:00)
[2022-01-13] MEDS: ATENOLOL 25 MG TABLET (FP) PO SCH (12:23)
[2022-01-13] MEDS: GABAPENTIN 300 MG CAPSULE PO SCH (12:23)
[2022-01-13] MEDS: amLODIPine BESYLATE 10 MG TABLET (FP) PO SCH (12:23)
[2022-01-13 14:35] VITALS: BP 126/60; PULSE 59; TEMP 97.8
== END 2022-01-13 19:03 | disposition home or self-care (01) | DRG 389 ==
LOC: JER 11:54 → JERBED 20:44 → J8W 01-08 20:26
PROVIDERS: ADMIT Internal Medicine; ATTEND Internal Medicine
PROC: 0D9670Z Drainage of Stomach with Drainage Device, Via Natural or Artificial Opening (ICD-10-PCS; principal; 2022-01-07)
DX: K56.609 Unspecified intestinal obstruction, unspecified as to partial versus complete obstruction (principal); E87.1 Hypo-osmolality and hyponatremia; N17.9 Acute kidney failure, unspecified; Z79.84 Long term (current) use of oral hypoglycemic drugs; E11.40 Type 2 diabetes mellitus with diabetic neuropathy, unspecified; E11.65 Type 2 diabetes mellitus with hyperglycemia; E11.22 Type 2 diabetes mellitus with diabetic chronic kidney disease; I12.9 Hypertensive chronic kidney disease with stage 1 through stage 4 chronic kidney disease, or unspecified chronic kidney disease; N18.9 Chronic kidney disease, unspecified; N20.0 Calculus of kidney; E86.1 Hypovolemia
CPT/HCPCS: 36415; 71045-TC-FY; 74019-TC-FY; 74177-TC; 74246-TC-FY; 74251-TC-FY; 80048; 80053; 81003; 82962; 83605; 83690; 83735; 84100; 85025; 85027; 87081; 87086; 93005; 93010; 99285-25; C9803; Q9967; U0003; U0005

== ENCOUNTER 2024-09-23 08:42 | Inpatient (IN) | payer OTHER ==
[2024-09-23] MEDS ORDERED: ONDANSETRON 4 MG/2 ML VIAL ONE (09:33)
[2024-09-23] MEDS ORDERED: ACETAMINOPHEN INJECTION 100 ML ONE (09:33)
[2024-09-23] MEDS ORDERED: FAMOTIDINE 20 MG/50 ML IVPB 20 MG/50 ML MG IVPB ONE (09:33)
[2024-09-23 10:08] LABS: BASO % 0.2 % (0-2.0); HEMATOCRIT 46.1 % (32.4-45.2); HEMOGLOBIN 14.6 GM/dL (10.7-15.3); LYMPH % 6.5 % (8-40); MCH 26.3 pg (25.7-33.7); MCHC 31.7 g/dl (32.0-36.0); MEAN PLT VOLUME 8.1 fl (7.5-11.1); NEUT % 90.3 % (42.8-82.8); PLATELET COUNT 229 10^3/uL (134-434); RBC 5.55 M/mm3 (3.60-5.2); RDW 13.9 % (11.6-15.6); WHITE BLOOD COUNT 11.5 K/mm3 (4.0-10.0)
[2024-09-23] MEDS: ACETAMINOPHEN 1000 MG/100 ML BAG IVPB ONE (10:13)
[2024-09-23] MEDS: FAMOTIDINE 20 MG/50 ML IVPB 20 MG/50 ML MG IVPB ONE (10:13)
[2024-09-23] MEDS: ONDANSETRON 4 MG/2 ML VIAL IVPB ONE (10:13)
[2024-09-23 10:18] LABS: POTASSIUM 4.2 mmol/L (3.5-5.1)
[2024-09-23 10:20] LABS: ALBUMIN 4.5 g/dl (3.4-5.0); CALCIUM 10.4 mg/dL (8.5-10.1)
[2024-09-23 10:21] LABS: BLOOD UREA NITROGEN 25.4 mg/dL (7-18)
[2024-09-23 10:23] LABS: CREATININE 1.5 mg/dL (0.55-1.3)
[2024-09-23 10:25] LABS: BILIRUBIN,TOTAL 0.9 mg/dL (0.2-1); TOT PROT 8.3 g/dl (6.4-8.2)
[2024-09-23 10:34] LABS: LACTIC ACID 3.5 mmol/L (0.4-2.0)
[2024-09-23] MEDS ORDERED: morphine SULFATE 4 MG/ML VIAL ONE (11:05)
[2024-09-23] MEDS: morphine SULFATE 4 MG/ML VIAL IVPUSH ONE (11:43)
[2024-09-23] MEDS: SODIUM CHLORIDE 0.9% 500 ML INFUS.BAG IV ONE (11:44)
[2024-09-23 14:39] LABS: EPI CELLS 13 /uL (0-25.1); HYALINE CASTS 0 /uL (0-3.1); PH,URINE 6.5 (5.0-8.0); URINE APPEARANCE CLEAR; URINE BACTERIA 62 /uL (0-1359); URINE BILIRUBIN NEGATIVE (NEGATIVE); URINE COLOR YELLOW; URINE GLUCOSE (UA) 2+ (NEGATIVE); URINE KETONE 1+ (NEGATIVE); URINE LEUK ESTERASE NEGATIVE (NEGATIVE); URINE NITRITE NEGATIVE (NEGATIVE); URINE PROTEIN 3+ (NEGATIVE); URINE RBC 57 /uL (0-23.9); URINE UROBILINOGEN 0.2 mg/dL (0.2-1.0); URINE WBC 19 /uL (0-25.8)
[2024-09-23] MEDS ORDERED: LIDOCAINE HCL 2% JELLY 11 ML TP ONE (14:47)
[2024-09-23] MEDS ORDERED: LABETALOL HCL 20 MG/4 ML VIAL ONE (14:48)
[2024-09-23] MEDS: LIDOCAINE HCL 2% JELLY 10 ML CARTRIDGE TP ONE (15:10)
[2024-09-23] MEDS ORDERED: ONDANSETRON 4 MG/2 ML VIAL IVPUSH PRN (15:17)
[2024-09-23] MEDS ORDERED: ACETAMINOPHEN 1000 MG/100 ML BAG IVPB PRN (15:18)
[2024-09-23] MEDS: LABETALOL HCL 5 MG/1 ML (100MG/20 ML VIAL) IVPUSH ONE (15:20)
[2024-09-23] MEDS ORDERED: MORPHINE SULFATE 2 MG/ML SYRINGE ONE (16:24)
[2024-09-23] MEDS: MORPHINE SULFATE 2 MG/ML SYRINGE IVPUSH PRN (16:30)
[2024-09-23] MEDS: INSULIN ASPART SLIDING SCALE (NOVOLOG) 1 VIAL SQ SCH (17:21)
[2024-09-23] MEDS: DEXTROSE 5%-NORMAL SALINE 1,000 ML IV SCH (17:22)
[2024-09-23 17:51] VITALS: BMI 25.0
[2024-09-23] MEDS: hydrALAZINE HCL 20 MG/ML VIAL IVPUSH PRN (17:55)
[2024-09-23] MEDS: HEPARIN NA (PORCINE) 5,000 UNITS/ML 1ML VIAL SQ SCH (21:11)
[2024-09-24] MEDS ORDERED: LABETALOL HCL 5 MG/1 ML (100MG/20 ML VIAL) IVPUSH PRN (10:23)
[2024-09-24] MEDS ORDERED: INSULIN ASPART SLIDING SCALE (NOVOLOG) 1 VIAL SQ ONE ×2 (10:27→21:31)
[2024-09-24 13:06] LABS: HEMATOCRIT 44.4 % (32.4-45.2); HEMOGLOBIN 14.4 GM/dL (10.7-15.3); MCH 26.4 pg (25.7-33.7); MCHC 32.4 g/dl (32.0-36.0); MEAN CELL VOLUME 81.3 fl (80-96); MEAN PLT VOLUME 8.3 fl (7.5-11.1); PLATELET COUNT 202 10^3/uL (134-434); RBC 5.47 M/mm3 (3.60-5.2); RDW 14.3 % (11.6-15.6); WHITE BLOOD COUNT 5.3 K/mm3 (4.0-10.0)
[2024-09-24 13:11] LABS: INR 1.14 (0.83-1.09); PROTHROMBIN TIME (PATIENT) 12.8 SEC (9.7-13.0)
[2024-09-24] MEDS: ACETAMINOPHEN 1000 MG/100 ML BAG IVPB SCH (13:11)
[2024-09-24 13:14] LABS: ACTIVATED PTT 29.3 SECONDS (25.2-36.5)
[2024-09-24 13:26] LABS: POTASSIUM 3.5 mmol/L (3.5-5.1)
[2024-09-24 13:30] LABS: CALCIUM 9.5 mg/dL (8.5-10.1)
[2024-09-24 13:31] LABS: BLOOD UREA NITROGEN 23.4 mg/dL (7-18); MAGNESIUM 1.8 mg/dL (1.8-2.4)
[2024-09-24 13:32] LABS: ALBUMIN 3.6 g/dl (3.4-5.0)
[2024-09-24 13:34] LABS: CREATININE 1.2 mg/dL (0.55-1.3)
[2024-09-24 13:35] LABS: BILIRUBIN,TOTAL 0.5 mg/dL (0.2-1); TOT PROT 6.6 g/dl (6.4-8.2)
[2024-09-24] MEDS ORDERED: LABETALOL HCL 20 MG/4 ML VIAL IVPB PRN (14:07)
[2024-09-24] MEDS: SODIUM CHLORIDE 1,000 ML IV STA ×2 (14:45→16:26)
[2024-09-24] MEDS: PANTOPRAZOLE 40 MG TABLET PO SCH (16:03)
[2024-09-24] MEDS: amLODIPine BESYLATE 10 MG TABLET (FP) PO SCH (16:03)
[2024-09-24] MEDS: IOHEXOL (OMNIPAQUE IV) 350 MG/ML - 100 ML BOTTLE GT ONE (16:08)
[2024-09-24] MEDS: LABETALOL HCL 20 MG/4 ML VIAL IVPUSH PRN (19:11)
[2024-09-24] MEDS: CARVEDILOL 25 MG TABLET (FP) PO SCH (21:41)
[2024-09-24] MEDS: PANTOPRAZOLE SODIUM 40 MG VIAL IVPUSH SCH (21:42)
[2024-09-25] MEDS: BUPIVACAINE HCL/PF 0.25% (2.5MG/ML) 10 ML VIAL IJ ONE
[2024-09-25] MEDS: amLODIPine BESYLATE 10 MG TABLET (FP) PO SCH (08:29)
[2024-09-25 09:03] LABS: HEMATOCRIT 41.5 % (32.4-45.2); HEMOGLOBIN 13.7 GM/dL (10.7-15.3); MCH 26.8 pg (25.7-33.7); MCHC 33.1 g/dl (32.0-36.0); MEAN CELL VOLUME 80.9 fl (80-96); MEAN PLT VOLUME 8.4 fl (7.5-11.1); PLATELET COUNT 187 10^3/uL (134-434); RBC 5.12 M/mm3 (3.60-5.2); RDW 14.2 % (11.6-15.6); WHITE BLOOD COUNT 6.1 K/mm3 (4.0-10.0)
[2024-09-25 09:20] LABS: CALCIUM 9.7 mg/dL (8.5-10.1); POTASSIUM 3.3 mmol/L (3.5-5.1)
[2024-09-25 09:21] LABS: BLOOD UREA NITROGEN 22.4 mg/dL (7-18)
[2024-09-25 09:24] LABS: PHOSPHOROUS 2.4 mg/dL (2.5-4.9)
[2024-09-25] MEDS ORDERED: PROPOFOL 20 ML ONE (09:43)
[2024-09-25] MEDS ORDERED: ONDANSETRON 4 MG/2 ML VIAL ONE (09:43)
[2024-09-25] MEDS ORDERED: DEXAMETHASONE SOD PHOSPHATE 4 MG/1 ML VIAL ONE (09:43)
[2024-09-25] MEDS ORDERED: ROCURONIUM BROMIDE 50 MG/5 ML SYRINGE ONE (09:43)
[2024-09-25] MEDS ORDERED: ETOMIDATE 20 MG/10 ML VIAL IVPUSH ONE (09:43)
[2024-09-25] MEDS ORDERED: HYDROmorphone HCl 2 MG/ML VIAL ONE (09:43)
[2024-09-25] MEDS ORDERED: MIDAZOLAM HCL 2 MG/2 ML SINGLE DOSE VIAL ONE (09:43)
[2024-09-25] MEDS: cefOXitin SODIUM 2 GM VIAL (RESTRICTED TO ID) IVPB ONE (11:00)
[2024-09-25] MEDS ORDERED: ONDANSETRON 4 MG/2 ML VIAL IVPUSH PRN (12:21)
[2024-09-25] MEDS ORDERED: SUGAMMADEX SODIUM 200 MG/2 ML VIAL ONE (12:57)
[2024-09-25] MEDS ORDERED: POVIDONE-IODINE OINTMENT 10% - 28.4 GM TUBE ONE (13:10)
[2024-09-25] MEDS: POVIDONE-IODINE OINTMENT 10% - 28.4 GM TUBE TP ONE (13:12)
[2024-09-25] MEDS ORDERED: LABETALOL HCL 20 MG/4 ML VIAL IVPUSH PRN (13:47)
[2024-09-25] MEDS ORDERED: ACETAMINOPHEN INJECTION 100 ML ONE (14:00)
[2024-09-25] MEDS: ACETAMINOPHEN 1000 MG/100 ML BAG IVPB SCH (14:03)
[2024-09-25] MEDS: LACTATED RINGERS SOLUTION 1,000 ML/1,000 ML INFUS.BAG IV SCH (14:18)
[2024-09-25] MEDS ORDERED: HYDROmorphone *PCA* 10MG/50ML DISP.SYRIN ONE (14:37)
[2024-09-25] MEDS: HYDROmorphone *PCA* 10MG/50ML DISP.SYRIN PCA SCH (14:41)
[2024-09-25] MEDS ORDERED: INSULIN ASPART SLIDING SCALE (NOVOLOG) 1 VIAL SQ SCH (16:30)
[2024-09-25] MEDS: HEPARIN NA (PORCINE) 5,000 UNITS/ML 1ML VIAL SQ SCH (17:48)
[2024-09-25] MEDS: KCL 10 MEQ IVPB 10 MEQ/100 ML INFUS.BAG IVPB SCH ×2 (17:50→19:34)
[2024-09-25] MEDS ORDERED: ROSUVASTATIN CA 20 MG TABLET PO SCH (22:00)
[2024-09-25] MEDS ORDERED: CARVEDILOL 25 MG TABLET (FP) PO SCH (22:00)
[2024-09-25] MEDS: INSULIN ASPART SLIDING SCALE (NOVOLOG) 1 VIAL SQ SCH (22:17)
[2024-09-25] MEDS: PANTOPRAZOLE SODIUM 40 MG VIAL IVPUSH SCH (22:18)
[2024-09-25] MEDS: CARVEDILOL 25 MG TABLET (FP) PO SCH (22:18)
[2024-09-26 08:32] LABS: CALCIUM 8.8 mg/dL (8.5-10.1)
[2024-09-26 08:33] LABS: BLOOD UREA NITROGEN 37.5 mg/dL (7-18); MAGNESIUM 1.7 mg/dL (1.8-2.4)
[2024-09-26 08:34] LABS: HEMATOCRIT 36.8 % (32.4-45.2); HEMOGLOBIN 11.9 GM/dL (10.7-15.3); MCH 26.5 pg (25.7-33.7); MCHC 32.3 g/dl (32.0-36.0); MEAN CELL VOLUME 82.1 fl (80-96); MEAN PLT VOLUME 8.7 fl (7.5-11.1); PLATELET COUNT 186 10^3/uL (134-434); RBC 4.49 M/mm3 (3.60-5.2); RDW 14.8 % (11.6-15.6)
[2024-09-26 08:36] LABS: CREATININE 2.2 mg/dL (0.55-1.3); PHOSPHOROUS 4.1 mg/dL (2.5-4.9)
[2024-09-26] MEDS ORDERED: amLODIPine BESYLATE 10 MG TABLET (FP) PO SCH (10:00)
[2024-09-26] MEDS ORDERED: MAGNESIUM 2GM/50ML STERILE WATER IVPB IVPB ONE (12:00)
[2024-09-26] MEDS: amLODIPine BESYLATE 10 MG TABLET (FP) PO SCH (12:20)
[2024-09-26] MEDS ORDERED: DEXTROSE 5%-LACTATED RINGERS 1,000 ML IV SCH (14:00)
[2024-09-26] MEDS: DEXTROSE 5%-LACTATED RINGERS 1,000 ML IV SCH (15:32)
[2024-09-26] MEDS: MAGNESIUM 2GM/50ML STERILE WATER IVPB IVPB ONE (15:40)
[2024-09-26] MEDS: HEPARIN NA (PORCINE) 5,000 UNITS/ML 1ML VIAL SQ SCH (21:52)
[2024-09-27 07:36] LABS: HEMATOCRIT 30.1 % (32.4-45.2); HEMOGLOBIN 9.3 GM/dL (10.7-15.3); MCH 26.5 pg (25.7-33.7); MCHC 30.8 g/dl (32.0-36.0); MEAN CELL VOLUME 86.2 fl (80-96); MEAN PLT VOLUME 8.6 fl (7.5-11.1); PLATELET COUNT 163 10^3/uL (134-434); RDW 15.1 % (11.6-15.6); WHITE BLOOD COUNT 5.1 K/mm3 (4.0-10.0)
[2024-09-27] MEDS ORDERED: SODIUM CHLORIDE 1,000 ML IV STA (08:45)
[2024-09-27 09:24] LABS: ANISOCYTOSIS 0; MACROCYTOSIS 0
[2024-09-27 09:38] LABS: POTASSIUM 3.7 mmol/L (3.5-5.1)
[2024-09-27 09:42] LABS: CALCIUM 9.1 mg/dL (8.5-10.1); MAGNESIUM 1.9 mg/dL (1.8-2.4)
[2024-09-27 09:43] LABS: BLOOD UREA NITROGEN 32.4 mg/dL (7-18)
[2024-09-27 09:44] LABS: CREATININE 1.5 mg/dL (0.55-1.3)
[2024-09-27 09:45] LABS: ALBUMIN 2.4 g/dl (3.4-5.0); PHOSPHOROUS 1.8 mg/dL (2.5-4.9)
[2024-09-27 09:46] LABS: BILIRUBIN,TOTAL 0.4 mg/dL (0.2-1)
[2024-09-27 09:47] LABS: TOT PROT 5.5 g/dl (6.4-8.2)
[2024-09-27] MEDS ORDERED: oxyCODONE HCL 5 MG TABLET PO PRN (10:32)
[2024-09-27] MEDS: NAPH,MB-DB/K PH,MBDB POWDER PACKET PO ONE (17:05)
[2024-09-27] MEDS: oxyCODONE HCL 5 MG TABLET PO PRN (17:53)
[2024-09-27] MEDS ORDERED: CARVEDILOL 25 MG TABLET (FP) PO SCH ×2 (18:02→22:00)
[2024-09-27] MEDS ORDERED: HYDROmorphone HCl 2 MG/ML VIAL IVPUSH ONE (18:25)
[2024-09-27] MEDS ORDERED: ACETAMINOPHEN 1000 MG/100 ML BAG IVPB PRN (18:48)
[2024-09-27 18:51] LABS: BASO % 0.3 % (0-2.0); EOS % 5.1 % (0-4.5); HEMATOCRIT 33.2 % (32.4-45.2); HEMOGLOBIN 10.6 GM/dL (10.7-15.3); LYMPH % 15.6 % (8-40); MCH 26.5 pg (25.7-33.7); MCHC 31.8 g/dl (32.0-36.0); MEAN CELL VOLUME 83.4 fl (80-96); MEAN PLT VOLUME 8.1 fl (7.5-11.1); MONO % 16.8 % (3.8-10.2); NEUT % 62.2 % (42.8-82.8); PLATELET COUNT 186 10^3/uL (134-434); RBC 3.98 M/mm3 (3.60-5.2); RDW 14.8 % (11.6-15.6); WHITE BLOOD COUNT 4.7 K/mm3 (4.0-10.0)
[2024-09-27 19:14] LABS: CHLORIDE 114 mmol/L (98-107); POTASSIUM 3.4 mmol/L (3.5-5.1); SODIUM 143 mmol/L (136-145)
[2024-09-27 19:16] LABS: CHLORIDE 115 mmol/L (98-107); POTASSIUM 3.4 mmol/L (3.5-5.1); SODIUM 145 mmol/L (136-145)
[2024-09-27 19:17] LABS: ALBUMIN 2.2 g/dl (3.4-5.0); ANION GAP 5 mmol/L (4-13); BLOOD UREA NITROGEN 25.5 mg/dL (7-18); CALCIUM 8.8 mg/dL (8.5-10.1); CO2 24 mmol/L (21-32)
[2024-09-27 19:18] LABS: MAGNESIUM 1.7 mg/dL (1.8-2.4)
[2024-09-27 19:20] LABS: ALBUMIN 2.1 g/dl (3.4-5.0); ANION GAP 6 mmol/L (4-13); BLOOD UREA NITROGEN 23.8 mg/dL (7-18); CALCIUM 8.6 mg/dL (8.5-10.1); CO2 23 mmol/L (21-32); CREATININE 1.3 mg/dL (0.55-1.3); SGOT/AST 20 U/L (15-37); SGPT/ALT 25 U/L (13-61)
[2024-09-27 19:21] LABS: GLUCOSE,RANDOM 464 mg/dL (74-106); PHOSPHOROUS 1.4 mg/dL (2.5-4.9)
[2024-09-27 19:22] LABS: BILIRUBIN,TOTAL 0.4 mg/dL (0.2-1)
[2024-09-27 19:23] LABS: ALK PHOS 43 U/L (45-117); CREATININE 1.3 mg/dL (0.55-1.3); SGOT/AST 19 U/L (15-37); SGPT/ALT 25 U/L (13-61)
[2024-09-27 19:25] LABS: BILIRUBIN,TOTAL 0.4 mg/dL (0.2-1); TOT PROT 4.8 g/dl (6.4-8.2)
[2024-09-27 19:26] LABS: ALK PHOS 43 U/L (45-117)
[2024-09-27 19:29] LABS: GLUCOSE,RANDOM 578 mg/dL (74-106); LACTIC ACID 5.2 mmol/L (0.4-2.0)
[2024-09-27] MEDS: KCL 10 MEQ IVPB 10 MEQ/100 ML INFUS.BAG IVPB SCH (20:37)
[2024-09-27] MEDS: MAGNESIUM 1GM/D5W - 1 GM/100 ML IVPB IVPB ONE (20:37)
[2024-09-27] MEDS ORDERED: SODIUM CHLORIDE 1,000 ML IV SCH (20:45)
[2024-09-27] MEDS: SODIUM CHLORIDE 1,000 ML IV ONE (21:12)
[2024-09-27] MEDS: CARVEDILOL 25 MG TABLET (FP) PO SCH (22:22)
[2024-09-27] MEDS: SODIUM CHLORIDE 1,000 ML IV SCH (22:30)
[2024-09-28] MEDS: HYDROmorphone HCl 2 MG/ML VIAL IVPUSH PRN ×2 (03:35→09:24)
[2024-09-28] MEDS ORDERED: SODIUM CHLORIDE 1,000 ML IV SCH ×2 (08:26→19:07)
[2024-09-28 08:55] LABS: HEMATOCRIT 30.7 % (32.4-45.2); HEMOGLOBIN 9.9 GM/dL (10.7-15.3); MCH 26.9 pg (25.7-33.7); MCHC 32.1 g/dl (32.0-36.0); MEAN CELL VOLUME 83.6 fl (80-96); MEAN PLT VOLUME 8.4 fl (7.5-11.1); PLATELET COUNT 187 10^3/uL (134-434); RBC 3.67 M/mm3 (3.60-5.2); WHITE BLOOD COUNT 5.2 K/mm3 (4.0-10.0)
[2024-09-28 09:06] LABS: POTASSIUM 3.6 mmol/L (3.5-5.1)
[2024-09-28 09:10] LABS: ALBUMIN 2.1 g/dl (3.4-5.0); CALCIUM 8.7 mg/dL (8.5-10.1); MAGNESIUM 1.8 mg/dL (1.8-2.4)
[2024-09-28 09:14] LABS: CREATININE 1.1 mg/dL (0.55-1.3); PHOSPHOROUS 1.8 mg/dL (2.5-4.9)
[2024-09-28 09:15] LABS: BILIRUBIN,TOTAL 0.4 mg/dL (0.2-1)
[2024-09-28 10:05] LABS: ANISOCYTOSIS 0; MACROCYTOSIS 0
[2024-09-28] MEDS: SODIUM CHLORIDE 1,000 ML IV SCH (12:16)
[2024-09-28] MEDS: NAPH,MB-DB/K PH,MBDB POWDER PACKET PO ONE (17:09)
[2024-09-28] MEDS: MAGNESIUM SULFATE IN WATER 2 GM/50 ML IVPB IVPB ONE (17:09)
[2024-09-28] MEDS: GABAPENTIN 300 MG CAPSULE PO SCH (21:10)
[2024-09-29 07:59] LABS: HEMOGLOBIN 10.2 GM/dL (10.7-15.3); MCH 26.8 pg (25.7-33.7); MCHC 31.7 g/dl (32.0-36.0); MEAN CELL VOLUME 84.4 fl (80-96); MEAN PLT VOLUME 8.8 fl (7.5-11.1); PLATELET COUNT 69 10^3/uL (134-434); RBC 3.79 M/mm3 (3.60-5.2); RDW 14.9 % (11.6-15.6); WHITE BLOOD COUNT 6.5 K/mm3 (4.0-10.0)
[2024-09-29] MEDS: ONDANSETRON 4 MG/2 ML VIAL IVPUSH PRN (08:04)
[2024-09-29 08:13] LABS: POTASSIUM 3.3 mmol/L (3.5-5.1)
[2024-09-29 08:26] LABS: ALBUMIN 2.1 g/dl (3.4-5.0); BLOOD UREA NITROGEN 16.4 mg/dL (7-18); CALCIUM 8.8 mg/dL (8.5-10.1); MAGNESIUM 1.9 mg/dL (1.8-2.4)
[2024-09-29 08:29] LABS: CREATININE 1.1 mg/dL (0.55-1.3); PHOSPHOROUS 2.2 mg/dL (2.5-4.9)
[2024-09-29 08:31] LABS: BILIRUBIN,TOTAL 0.3 mg/dL (0.2-1); TOT PROT 4.9 g/dl (6.4-8.2)
[2024-09-29 08:58] LABS: ANISOCYTOSIS 0; MACROCYTOSIS 0
[2024-09-29] MEDS: amLODIPine BESYLATE 10 MG TABLET (FP) PO SCH (10:07)
[2024-09-29] MEDS: POTASSIUM PHOSPHATE 15 MM in SODIUM CHLORIDE 250 ML IVPB ONE (10:19)
[2024-09-29] MEDS: POTASSIUM CHLORIDE TABS 20 MEQ TABLET.ER (FP) PO SCH (21:05)
[2024-09-29] MEDS: CARVEDILOL 12.5 MG TABLET (FP) PO SCH (21:06)
[2024-09-30 09:24] LABS: POTASSIUM 4.3 mmol/L (3.5-5.1)
[2024-09-30 09:29] LABS: ALBUMIN 2.2 g/dl (3.4-5.0)
[2024-09-30 09:32] LABS: CREATININE 1.2 mg/dL (0.55-1.3)
[2024-09-30 09:33] LABS: PHOSPHOROUS 2.6 mg/dL (2.5-4.9)
[2024-09-30 09:34] LABS: BILIRUBIN,TOTAL 0.4 mg/dL (0.2-1); TOT PROT 5.2 g/dl (6.4-8.2)
[2024-09-30 09:45] LABS: CALCIUM 8.7 mg/dL (8.5-10.1); MAGNESIUM 1.5 mg/dL (1.8-2.4)
[2024-09-30] MEDS: CARVEDILOL 12.5 MG TABLET (FP) PO SCH (09:57)
[2024-09-30] MEDS: MAGNESIUM SULFATE IN WATER 2 GM/50 ML IVPB IVPB ONE (18:10)
[2024-09-30 21:21] LABS: BASO % 0.5 % (0-2.0); HEMATOCRIT 30.4 % (32.4-45.2); HEMOGLOBIN 9.7 GM/dL (10.7-15.3); LYMPH % 16.8 % (8-40); MCH 26.6 pg (25.7-33.7); MEAN CELL VOLUME 83.2 fl (80-96); MEAN PLT VOLUME 7.6 fl (7.5-11.1); MONO % 9.3 % (3.8-10.2); NEUT % 70.4 % (42.8-82.8); PLATELET COUNT 223 10^3/uL (134-434); RBC 3.66 M/mm3 (3.60-5.2); RDW 14.9 % (11.6-15.6)
[2024-10-01 10:28] LABS: HEMATOCRIT 32.4 % (32.4-45.2); HEMOGLOBIN 10.4 GM/dL (10.7-15.3); MCH 26.4 pg (25.7-33.7); MEAN CELL VOLUME 82.6 fl (80-96); MEAN PLT VOLUME 7.8 fl (7.5-11.1); PLATELET COUNT 265 10^3/uL (134-434); RBC 3.92 M/mm3 (3.60-5.2); RDW 14.4 % (11.6-15.6); WHITE BLOOD COUNT 9.8 K/mm3 (4.0-10.0)
[2024-10-01 10:52] LABS: ANISOCYTOSIS 0; MACROCYTOSIS 0; POTASSIUM 4.9 mmol/L (3.5-5.1)
[2024-10-01 10:53] LABS: CALCIUM 9.4 mg/dL (8.5-10.1)
[2024-10-01 10:54] LABS: BLOOD UREA NITROGEN 13.5 mg/dL (7-18)
[2024-10-01 10:55] LABS: ALBUMIN 2.4 g/dl (3.4-5.0)
[2024-10-01 10:57] LABS: PHOSPHOROUS 2.3 mg/dL (2.5-4.9)
[2024-10-01 11:00] LABS: BILIRUBIN,TOTAL 0.4 mg/dL (0.2-1); TOT PROT 5.7 g/dl (6.4-8.2)
[2024-10-01] MEDS: NAPH,MB-DB/K PH,MBDB POWDER PACKET PO ONE (11:58)
[2024-10-01 15:59] LABS: MAGNESIUM 1.7 mg/dL (1.8-2.4)
[2024-10-01] MEDS: MAGNESIUM 2GM/50ML STERILE WATER IVPB IVPB ONE (17:03)
[2024-10-02 08:43] LABS: BASO % 0.5 % (0-2.0); HEMATOCRIT 31.9 % (32.4-45.2); HEMOGLOBIN 10.2 GM/dL (10.7-15.3); LYMPH % 23.4 % (8-40); MCH 26.6 pg (25.7-33.7); MCHC 32.1 g/dl (32.0-36.0); MEAN CELL VOLUME 82.9 fl (80-96); MEAN PLT VOLUME 7.8 fl (7.5-11.1); MONO % 7.8 % (3.8-10.2); NEUT % 64.3 % (42.8-82.8); PLATELET COUNT 256 10^3/uL (134-434); RBC 3.85 M/mm3 (3.60-5.2); RDW 14.7 % (11.6-15.6); WHITE BLOOD COUNT 8.8 K/mm3 (4.0-10.0)
[2024-10-02 08:50] LABS: POTASSIUM 5.5 mmol/L (3.5-5.1)
[2024-10-02 08:56] LABS: ALBUMIN 2.4 g/dl (3.4-5.0); BLOOD UREA NITROGEN 11.4 mg/dL (7-18); CALCIUM 9.5 mg/dL (8.5-10.1); MAGNESIUM 1.8 mg/dL (1.8-2.4)
[2024-10-02 08:59] LABS: CREATININE 0.9 mg/dL (0.55-1.3)
[2024-10-02 09:00] LABS: PHOSPHOROUS 2.9 mg/dL (2.5-4.9)
[2024-10-02 09:01] LABS: BILIRUBIN,TOTAL 0.4 mg/dL (0.2-1); TOT PROT 5.7 g/dl (6.4-8.2)
[2024-10-02 09:54] LABS: ANISOCYTOSIS 0; MACROCYTOSIS 0
[2024-10-02] MEDS: oxyCODONE HCL 5 MG TABLET PO PRN (11:14)
[2024-10-02] MEDS: ACETAMINOPHEN 325 MG TABLET (FP) PO SCH (11:15)
[2024-10-03 01:12] VITALS: RESP 18
[2024-10-03 06:30] LABS: BASO % 0.8 % (0-2.0); EOS % 3.8 % (0-4.5); HEMATOCRIT 33.6 % (32.4-45.2); HEMOGLOBIN 10.7 GM/dL (10.7-15.3); LYMPH % 24.3 % (8-40); MCH 26.3 pg (25.7-33.7); MCHC 31.7 g/dl (32.0-36.0); MEAN CELL VOLUME 82.7 fl (80-96); MEAN PLT VOLUME 7.5 fl (7.5-11.1); MONO % 7.6 % (3.8-10.2); NEUT % 63.5 % (42.8-82.8); PLATELET COUNT 303 10^3/uL (134-434); RBC 4.06 M/mm3 (3.60-5.2); RDW 14.6 % (11.6-15.6); WHITE BLOOD COUNT 6.1 K/mm3 (4.0-10.0)
[2024-10-03 06:52] LABS: POTASSIUM 5.3 mmol/L (3.5-5.1)
[2024-10-03 06:59] LABS: ALBUMIN 2.5 g/dl (3.4-5.0)
[2024-10-03 07:00] LABS: BLOOD UREA NITROGEN 9.8 mg/dL (7-18); MAGNESIUM 1.7 mg/dL (1.8-2.4)
[2024-10-03 07:03] LABS: BILIRUBIN,TOTAL 0.3 mg/dL (0.2-1); PHOSPHOROUS 3.6 mg/dL (2.5-4.9)
[2024-10-03 07:19] VITALS: BP 149/69; PULSE 64; TEMP 97.9
[2024-10-03] MEDS: MAGNESIUM SULFATE IN WATER 2 GM/50 ML IVPB IVPB ONE (10:01)
== END 2024-10-03 11:13 | disposition home health service (06) | DRG 336 ==
LOC: JER 08:42 → JERBED 14:12 → J6S 17:03 → J4S 09-24 23:02 → UNDODISIN 09-26 13:41
PROVIDERS: ADMIT Internal Medicine; ATTEND Internal Medicine
PROC: 0DJD4ZZ Inspection of Lower Intestinal Tract, Percutaneous Endoscopic Approach (ICD-10-PCS; 2024-09-25)
PROC: 0DN80ZZ Release Small Intestine, Open Approach (ICD-10-PCS; principal; 2024-09-25 17:00)
DX: K56.50 Intestinal adhesions [bands], unspecified as to partial versus complete obstruction (principal); E87.20 Acidosis, unspecified; N17.9 Acute kidney failure, unspecified; K91.89 Other postprocedural complications and disorders of digestive system; I47.29 Other ventricular tachycardia; K92.1 Melena; K56.7 Ileus, unspecified; I16.0 Hypertensive urgency; E11.40 Type 2 diabetes mellitus with diabetic neuropathy, unspecified; I25.10 Atherosclerotic heart disease of native coronary artery without angina pectoris; D64.9 Anemia, unspecified; K46.9 Unspecified abdominal hernia without obstruction or gangrene; I27.20 Pulmonary hypertension, unspecified; N28.1 Cyst of kidney, acquired; I10 Essential (primary) hypertension; Y83.8 Other surgical procedures as the cause of abnormal reaction of the patient, or of later complication, without mention of misadventure at the time of the procedure
CPT/HCPCS: 36415; 71045-TC-FY; 74018-TC-FY; 74019-TC-FY; 74177-TC; 80048; 80053; 81003; 82272; 82550; 82962; 83036; 83605; 83690; 83735; 84100; 84484; 85025; 85027; 85610; 85730; 86850; 86900; 86901; 87081; 87086; 93005; 93010; 93306-TC; 94760; 97116-GP; 97161-GP; 99285-25; J0131; J1644